=== PATIENT | male | born 1995 | race Caucasian/White ===

== ENCOUNTER 2017-07-16 02:00 | Inpatient (IN) | payer OTHER, SELFPAY ==
[2017-07-16 02:50] LABS: #Basophils 0.1 thou/uL (0.0-0.2); #Eosinphils 0.1 thou/uL (0.0-0.7); #Lymphocytes 1.9 thou/uL (1.20-3.40); #Monocytes 0.7 thou/uL (0.11-0.59); #Neutrophils 8.3 thou/uL (1.40-6.50); %Basophils 0.6 % (0.0-1.0); %Eosinophils 1.1 % (0.0-10.0); %Lymphocytes 17.2 % (21.0-51.0); %Monocytes 6.4 % (0.0-10.0); Hematocrit 45.5 % (42.0-52.0); Red Blood Cell (RBC) Count 5.32 mill/uL (4.70-6.10); White Blood Cell (WBC) Count 11.1 thou/uL (4.8-10.8)
[2017-07-16 03:00] LABS: Acetaminophen Less than 6.0 mcg/mL (10.0-30.0); CK (CPK) 106 U/L (30-200); Salicylate Less than 8.0 mg/dL (15.0-30.0)
[2017-07-16 03:02] LABS: ALT (SGPT) 25 U/L (8-55); AST (SGOT) 20 U/L (5-34); Alkaline Phosphatase 36 U/L (40-150); Anion Gap 12 mmol/L (10-20); BUN (Urea Nitrogen) 13 mg/dL (8.9-20.6); Bilirubin, Total 0.3 mg/dL (0.2-1.2); Calc. Creatinine Clearance 0 mL/min (70-130); Calcium 9.1 mg/dL (7.8-10.44); Carbon Dioxide 25 mmol/L (22-29); Chloride 109 mmol/L (98-107); Estimated GFR-MDRD Greater than 90; Globulin 2.3 g/dL (2.4-3.5); Protein, Total 6.4 g/dL (6.0-8.3)
[2017-07-16] MEDS ORDERED: Ondansetron HCl/PF 4 MG/2 ML Vial ONE (03:13)
[2017-07-16] MEDS ORDERED: Activated Charcoal/Sorbitol 25 GM/120 ML TUBE ONE (03:13)
[2017-07-16 03:19] LABS: Bilirubin Negative (Negative); Blood, Urine Negative (Negative); Glucose, Urine (Dipstick) Negative (Negative); Ketone, Urine Negative (Negative); Nitrite Negative (Negative); Protein, Urine (Dipstick) Negative (Neg-Trace); Urobilinogen 0.2 mg/dL (0.2-1.0)
[2017-07-16 03:35] LABS: Amphetamine Not Detected (NotDetected); Methadone Not Detected (NotDetected); Methamphetamine Not Detected (NotDetected)
[2017-07-16] MEDS ORDERED: Ondansetron HCl/PF 4 MG/2 ML Vial IVP PRN (04:49)
[2017-07-16] MEDS ORDERED: Sodium Chloride 0.9% 1,000 ML IV SCH (04:49)
[2017-07-16] MEDS ORDERED: Acetaminophen 325 MG TAB PO PRN (04:49)
[2017-07-16] MEDS ORDERED: Ondansetron ODT 4 MG TAB SL PRN (04:49)
--- NOTE | 2017-07-16 05:25 | PDOC.EVN ---
Event Note - Event Note Event Note: [id number] 1. Intentional drug overdose 2. Sucide attempt 3. DVT & GI prophylaxis 4. Nausea plan: see orders
[2017-07-16] MEDS: Sodium Chloride 0.9% 1,000 ML IV SCH ×3 (05:43→23:44)
[2017-07-16] MEDS: Famotidine 20 MG TAB PO SCH ×2 (09:10→19:44)
[2017-07-16] MEDS: Heparin 5,000 UNITS/ML VIAL SC SCH ×3 (09:10→19:46)
[2017-07-16] MEDS ORDERED: Levothyroxine Sodium 100 MCG TAB PO SCH ×3 (09:45→11:15)
--- NOTE | 2017-07-16 12:18 | PDOC.PN ---
- Subjective Encounter Start Date: 07/16/17 Encounter Start Time: 12:16 Subjective: feels better.still with SI. - Objective MAR Reviewed: Yes Vital Signs & Weight: Vital Signs (12 hours) Temp Pulse Resp BP Pulse Ox 07/16/17 07:55 99.4 F 92 15 115/78 95 07/16/17 07:17 99.4 F 92 15 95 07/16/17 04:45 98.7 F 105 H 18 97 Weight Admit Weight 296 lb 9.6 oz Weight 296 lb 9.6 oz I&O: 07/15/17 07/16/17 07/17/17 06:59 06:59 06:59 Intake Total 530 Balance 530 Result Diagrams: 07/16/17 02:19 07/16/17 02:19 Additional Labs: Laboratory Tests 05/09/17 05/24/17 07/16/17 16:49 04:28 02:19 TSH 3rd Generation 3.5532 7.5224 H 6.4903 H Phys Exam - Physical Examination Constitutional: NAD HEENT: PERRLA, moist MMs, sclera anicteric, oral pharynx no lesions Neck: no nodes, no JVD, supple, full ROM Respiratory: no wheezing, no rales, no rhonchi, clear to auscultation bilateral Cardiovascular: RRR, no significant murmur, no rub, gallop Gastrointestinal: soft, non-tender, no distention, positive bowel sounds Musculoskeletal: no edema, pulses present Neurological: non-focal, normal sensation, moves all 4 limbs Psychiatric: normal affect, A&O x 3 Skin: no rash Dx/Plan (1) Overdose Code(s): T50.901A - POISONING BY UNSP DRUG/MEDS/BIOL SUBST, ACCIDENTAL, INIT Status: Resolved Qualifiers: (2) Suicidal ideation Code(s): R45.851 - SUICIDAL IDEATIONS Status: Acute (3) Subclinical hypothyroidism Code(s): E03.9 - HYPOTHYROIDISM, UNSPECIFIED Status: Acute (4) Bipolar disorder Code(s): F31.9 - BIPOLAR DISORDER, UNSPECIFIED Status: Chronic (5) Depression Code(s): F32.9 - MAJOR DEPRESSIVE DISORDER, SINGLE EPISODE, UNSPECIFIED Status : Chronic (6) Schizophrenia Code(s): F20.9 - SCHIZOPHRENIA, UNSPECIFIED Status: Chronic (7) Suicide attempt Status: Resolved - Plan DVT proph w/SCDs start levothyroxine as it moight be contributing to Depression. -: consult [facility].pt hemodynamically stable * . Review of Systems - Review of Systems Constitutional: negative: Fever, Chills, Sweats, Weakness, Malaise, Other Respiratory: negative: Cough, Dry, Shortness of Breath, Hemoptysis, SOB with Excertion, Pleuritic Pain, Sputum, Wheezing Cardiovascular: negative: Chest Pain, Palpitations, Orthopnea, Paroxysmal Noc. Dyspnea, Edema, Light Headedness, Other Gastrointestinal: negative: Nausea, Vomiting, Abdominal Pain, Diarrhea, Constipation, Melena, Hematochezia, Other Genitourinary: negative: Dysuria, Frequency, Incontinence, Hematuria, Retention , Other Musculoskeletal: negative: Neck Pain, Shoulder Pain, Arm Pain, Back Pain, Hand Pain, Leg Pain, Foot Pain, Other Skin: negative: Rash, Lesions, Cameron, Bruising, Other Neurological: negative: Weakness, Numbness, Incoordination, Change in Speech, Confusion, Seizures, Other Other: suicidal ideation - Medications/Allergies Allergies/Adverse Reactions: Allergies Allergy/AdvReac Type Severity Reaction Status Date / Time topiramate [From Topamax] Allergy Intermediate Rash Verified 05/09/17 23:07 Medications: Current Medications Acetaminophen (Tylenol) 650 mg PO Q4H PRN PRN Reason: Headache/Fever or Pain Stop: 07/16/17 16:00 Famotidine (Pepcid) 20 mg PO BID [facility] Last Admin: 07/16/17 09:10 Dose: 20 mg Heparin Sodium (Porcine) (Heparin) 5,000 units SC TID [facility] Last Admin: 07/16/17 09:10 Dose: Not Given Sodium Chloride (Normal Saline 0.9%) 1,000 mls @ 100 mls/hr IV .Q10H [facility] Last Admin: 07/16/17 11:59 Dose: 1,000 mls Levothyroxine Sodium (Synthroid) 100 mcg PO 0600 [facility] Ondansetron HCl (Zofran) 4 mg IVP Q6H PRN PRN Reason: Nausea/Vomiting Stop: 07/16/17 16:00 Last Admin: 07/16/17 05:43 Dose: 4 mg Ondansetron HCl (Zofran Odt) 4 mg SL Q6H PRN PRN Reason: Nausea/Vomiting Stop: 07/16/17 16:00 Sodium Chloride (Flush - Normal Saline) 10 ml IVF PRN PRN PRN Reason: Saline Flush Stop: 07/16/17 16:00
--- NOTE | 2017-07-16 14:21 | HP ---
DATE OF ADMISSION: 07/16/2017 CHIEF COMPLAINT: Drug overdose. HISTORY OF PRESENT ILLNESS: Patient is a 21-year-old male with past medical history of borderline personality disorder, depression, now came to the ER complaining of suicide attempt. The patient said he took 24 tablets of Wellbutrin 300 mg yesterday and then he called and he came to the hospital. He tried to hurt himself in the past also. Denies any pain, vomiting. Complains of some nausea. Denies any cough, denies sputum production, denies any chest pain. The patient was in the Psych facility in the past for depression also. Denies any dizziness, denies any lightheadedness. Upon arrival, the patient was given activated charcoal and Zofran. The patient is admitted to IMU for close monitoring. Patient denies any other complaints at this time. PAST MEDICAL HISTORY: As per HPI. PAST SURGICAL HISTORY: None. SOCIAL HISTORY: Denies smoking. Occasional alcohol. Denies any drugs. FAMILY HISTORY: Denies any heart problems. REVIEW OF SYSTEMS: Constitutional: Denies any fever, denies any chills. Eyes : Denies vision problems. Ears: Denies hearing loss. Neck: Denies any neck pain. Cardiovascular System: Denies any chest pain, denies palpitations. Respiratory System: Denies any cough, denies sputum production. Gastrointestinal: Positive for nausea. Integumentary: Denies any rash. Genitourinary: Denies dysuria. Cranial nerve system: Denies syncope, denies lightheadedness. Psychiatric: Positive for depression. Other review of systems are reviewed and are negative. PHYSICAL EXAMINATION: CONSTITUTIONAL/VITAL SIGNS: At the time of H\T\P performed, afebrile, blood pressure is stable, respiratory rate 18, pulse ox 97% on room air. GENERAL: The patient appears comfortable. HEENT: Pupils equal, round, and reactive. Anterior nares patent. Nose normal. Ears normal. Teeth intact. Tongue is moist. NECK: Supple, no JVD. CARDIOVASCULAR: S1, S2 present. Regular rate and rhythm, no murmurs, no rubs, no gallops. RESPIRATORY SYSTEM: No wheezing, no rhonchi. Breath sounds bilaterally. GASTROINTESTINAL: Abdomen is soft, nontender, no guarding, no organomegaly, no masses felt. MUSCULOSKELETAL: No edema. CRANIAL NERVE SYSTEM: Awake, follows commands. Strength intact, sensory intact. PSYCHIATRIC: Mood appropriate at this time. INTEGUMENT: No rashes seen. GENITOURINARY: No suprapubic tenderness. MUSCULOSKELETAL: No edema. LABORATORY DATA AND IMAGING: At the time of H\T\P performed, sodium 142, potassium 3.7, chloride 109, CO2 25, BUN of 13, creatinine 1, glucose 106, AST 20, ALT 25, alkaline phosphatase 36, serum total protein 6.4, albumin 4.1. White count 11.1, platelet count 249. EKG normal sinus rhythm, corrected QT 401 milliseconds. ASSESSMENT AND PLAN: The patient is a 21-year-old male: 1. Suicide attempt with intentional overdose. We will continue to monitor the patient closely. Plan to place the patient on telemetry. We will go ahead and place sitter 24 hours and we will follow the patient closely. When patient is stable, will consult Psych to evaluate the patient. 2. History of borderline personality disorder and depression, monitor for now. We will continue home medications slowly. 3. Deep venous thrombosis and gastrointestinal prophylaxis. Sequential compression devices and proton pump inhibitor. 4. Nausea, p.r.n. antiemetics. The case was discussed in detail with the patient. AMA
[2017-07-17] MEDS: Levothyroxine Sodium 100 MCG TAB PO SCH (05:34)
[2017-07-17 05:44] LABS: #Basophils 0.1 thou/uL (0.0-0.2); #Eosinphils 0.3 thou/uL (0.0-0.7); #Lymphocytes 2.3 thou/uL (1.20-3.40); #Monocytes 0.8 thou/uL (0.11-0.59); #Neutrophils 5.1 thou/uL (1.40-6.50); %Basophils 0.9 % (0.0-1.0); %Eosinophils 3.1 % (0.0-10.0); %Lymphocytes 27.1 % (21.0-51.0); %Monocytes 8.8 % (0.0-10.0); Hematocrit 43.2 % (42.0-52.0); Mean Platelet Volume 7.3 fL (7.4-10.4); White Blood Cell (WBC) Count 8.5 thou/uL (4.8-10.8)
[2017-07-17 06:02] LABS: Anion Gap 10 mmol/L (10-20); BUN (Urea Nitrogen) 7 mg/dL (8.9-20.6); Calc. Creatinine Clearance 273 mL/min (70-130); Calcium 8.7 mg/dL (7.8-10.44); Carbon Dioxide 27 mmol/L (22-29); Chloride 108 mmol/L (98-107); Estimated GFR-MDRD Greater than 90
[2017-07-17] MEDS: Famotidine 20 MG TAB PO SCH ×2 (08:53→21:13)
[2017-07-17] MEDS ORDERED: Acetaminophen 325 MG TAB PO PRN (08:55)
[2017-07-17] MEDS: Heparin 5,000 UNITS/ML VIAL SC SCH (08:57)
[2017-07-17] MEDS ORDERED: Ondansetron HCl/PF 4 MG/2 ML Vial IVP PRN (14:15)
[2017-07-17] MEDS ORDERED: Ondansetron ODT 4 MG TAB PO PRN (14:15)
[2017-07-17] MEDS ORDERED: Milk Of Magnesia 30 ML UDCUP PO PRN (14:15)
[2017-07-17] MEDS ORDERED: Senokot 8.6 MG TAB PO PRN (14:15)
--- NOTE | 2017-07-17 14:58 | PDOC.PN ---
- Subjective Encounter Start Date: 07/17/17 Encounter Start Time: 14:56 Patient seen and examined. No new complaints. No overnight events - Objective Resuscitation Status: Resuscitation Status FULL:Full Resuscitation MAR Reviewed: Yes Vital Signs & Weight: Vital Signs (12 hours) Temp Pulse Resp BP BP Pulse Ox 07/17/17 12:04 98 F 79 16 139/62 100 07/17/17 10:30 98 F 79 16 100 07/17/17 08:00 98.1 F 70 16 117/75 100 07/17/17 05:35 98.6 F 68 16 104/60 Weight Admit Weight 296 lb 9.6 oz Weight 295 lb I&O: 07/16/17 07/17/17 07/18/17 06:59 06:59 06:59 Intake Total 4360 Output Total 5 Balance 4355 Result Diagrams: 07/17/17 05:32 07/17/17 05:31 EKG Reviewed by me: Yes (Tele SR) Phys Exam - Physical Examination Constitutional: NAD Respiratory: no wheezing, no rhonchi Cardiovascular: RRR, no rub Gastrointestinal: soft, non-tender, positive bowel sounds Musculoskeletal: no edema Neurological: non-focal, moves all 4 limbs Dx/Plan (1) Suicide by drug overdose Code(s): T50.902A - POISONING BY UNSP DRUG/MEDS/BIOL SUBST, SELF-HARM, INIT Status: Acute Comment: Wellbutrin overdose (2) Morbid obesity with BMI of 45.0-49.9, adult Code(s): E66.01 - MORBID (SEVERE) OBESITY DUE TO EXCESS CALORIES; Z68.42 - BODY MASS INDEX (BMI) 45.0-49.9, ADULT Status: Chronic (3) Bipolar disorder Code(s): F31.9 - BIPOLAR DISORDER, UNSPECIFIED Status: Chronic (4) Depression Code(s): F32.9 - MAJOR DEPRESSIVE DISORDER, SINGLE EPISODE, UNSPECIFIED Status : Chronic (5) Schizophrenia Code(s): F20.9 - SCHIZOPHRENIA, UNSPECIFIED Status: Chronic (6) Subclinical hypothyroidism Code(s): E03.9 - HYPOTHYROIDISM, UNSPECIFIED Status: Acute - Plan cont current plan of care, DVT proph w/lovenox, DVT proph w/SCDs * Cont suicide precautions * Inpt placement per [facility] * Cont tele monitoring - high risk of cardiac arrhythmias with Wellbutrin Review of Systems - Review of Systems Constitutional: negative: Fever, Chills, Sweats, Weakness, Malaise, Other Respiratory: negative: Cough, Dry, Shortness of Breath, Hemoptysis, SOB with Excertion, Pleuritic Pain, Sputum, Wheezing Cardiovascular: negative: Chest Pain, Palpitations, Orthopnea, Paroxysmal Noc. Dyspnea, Edema, Light Headedness, Other Gastrointestinal: negative: Nausea, Vomiting, Abdominal Pain, Diarrhea, Constipation, Melena, Hematochezia, Other Neurological: negative: Weakness, Numbness, Incoordination, Change in Speech, Confusion, Seizures, Other - Medications/Allergies Allergies/Adverse Reactions: Allergies Allergy/AdvReac Type Severity Reaction Status Date / Time topiramate [From Topamax] Allergy Intermediate Rash Verified 05/09/17 23:07 Medications: Current Medications Acetaminophen (Tylenol) 650 mg PO Q4H PRN PRN Reason: Headache/Fever or Mild Pain Docusate Sodium (Colace) 100 mg PO BID [facility] Enoxaparin Sodium (Lovenox) 40 mg SC 0900 [facility] Famotidine (Pepcid) 20 mg PO BID [facility] Last Admin: 07/17/17 08:53 Dose: 20 mg Sodium Chloride (Normal Saline 0.9%) 1,000 mls @ 100 mls/hr IV .Q10H [facility] Last Admin: 07/16/17 23:44 Dose: 1,000 mls Levothyroxine Sodium (Synthroid) 100 mcg PO 0600 [facility] Last Admin: 07/17/17 05:34 Dose: 100 mcg Magnesium Hydroxide (Milk Of Magnesium) 30 ml PO DAILYPRN PRN PRN Reason: Constipation Ondansetron HCl (Zofran Odt) 4 mg PO Q6H PRN PRN Reason: Nausea/Vomiting Ondansetron HCl (Zofran) 4 mg IVP Q6H PRN PRN Reason: Nausea/Vomiting Senna (Senokot) 2 tab PO HSPRN PRN PRN Reason: Constipation Sodium Chloride (Flush - Normal Saline) 10 ml IVF Q12HR [facility] Last Admin: 07/17/17 09:28 Dose: Not Given Sodium Chloride (Flush - Normal Saline) 10 ml IVF PRN PRN PRN Reason: Saline Flush
[2017-07-17] MEDS: Docusate 100 MG CAP PO SCH (21:13)
[2017-07-17] MEDS: Sodium Chloride 0.9% 1,000 ML IV SCH (21:21)
[2017-07-18] MEDS: Levothyroxine Sodium 100 MCG TAB PO SCH (05:52)
[2017-07-18] MEDS: Enoxaparin Sodium 40 MG/0.4 ML SYRINGE SC SCH (08:32)
[2017-07-18] MEDS: Famotidine 20 MG TAB PO SCH ×2 (08:32→21:22)
[2017-07-18] MEDS: Docusate 100 MG CAP PO SCH ×2 (08:32→21:22)
[2017-07-18] MEDS: Sodium Chloride 0.9% 1,000 ML IV SCH ×2 (08:36→16:04)
[2017-07-18] MEDS ORDERED: FLU VACC QS2017-18 36 mo. & older 0.5 ML SYRINGE IM ONE (09:00)
--- NOTE | 2017-07-18 19:00 | PDOC.PN ---
- Subjective Encounter Start Date: 07/18/17 Encounter Start Time: 09:30 Patient seen and examined. No new complaints. No overnight events - Objective Resuscitation Status: Resuscitation Status FULL:Full Resuscitation MAR Reviewed: Yes Vital Signs & Weight: Vital Signs (12 hours) Temp Pulse Resp BP Pulse Ox 07/18/17 16:05 97.2 F L 94 16 135/62 98 07/18/17 12:00 98.7 F 68 17 122/60 98 07/18/17 08:37 97.8 F 72 18 110/76 97 07/18/17 08:00 97.8 F 72 18 97 Weight Admit Weight 296 lb 9.6 oz Weight 295 lb I&O: 07/17/17 07/18/17 07/19/17 06:59 06:59 06:59 Intake Total 4360 1940 1920 Output Total 5 1740 1200 Balance 4355 200 720 Result Diagrams: 07/17/17 05:32 07/17/17 05:31 EKG Reviewed by me: Yes (Tele SR) Phys Exam - Physical Examination Constitutional: NAD Respiratory: no wheezing, no rhonchi Cardiovascular: RRR, no rub Gastrointestinal: soft, non-tender, positive bowel sounds Musculoskeletal: no edema Neurological: moves all 4 limbs Dx/Plan (1) Suicide by drug overdose Code(s): T50.902A - POISONING BY UNSP DRUG/MEDS/BIOL SUBST, SELF-HARM, INIT Status: Acute Comment: Wellbutrin overdose (2) Morbid obesity with BMI of 45.0-49.9, adult Code(s): E66.01 - MORBID (SEVERE) OBESITY DUE TO EXCESS CALORIES; Z68.42 - BODY MASS INDEX (BMI) 45.0-49.9, ADULT Status: Chronic (3) Bipolar disorder Code(s): F31.9 - BIPOLAR DISORDER, UNSPECIFIED Status: Chronic (4) Depression Code(s): F32.9 - MAJOR DEPRESSIVE DISORDER, SINGLE EPISODE, UNSPECIFIED Status : Chronic (5) Schizophrenia Code(s): F20.9 - SCHIZOPHRENIA, UNSPECIFIED Status: Chronic (6) Subclinical hypothyroidism Code(s): E03.9 - HYPOTHYROIDISM, UNSPECIFIED Status: Acute - Plan cont current plan of care, DVT proph w/lovenox, DVT proph w/SCDs * Inpt placement per [facility] * Probably transfer to medical in AM if no bed available at [place]. * Cont suicide precautions * Patient is medically cleared for discharge. Review of Systems - Review of Systems Constitutional: negative: Fever, Chills, Sweats, Weakness, Malaise, Other Cardiovascular: negative: Chest Pain, Palpitations, Orthopnea, Paroxysmal Noc. Dyspnea, Edema, Light Headedness, Other Gastrointestinal: negative: Nausea, Vomiting, Abdominal Pain, Diarrhea, Constipation, Melena, Hematochezia, Other Neurological: negative: Weakness, Numbness, Incoordination, Change in Speech, Confusion, Seizures, Other - Medications/Allergies Allergies/Adverse Reactions: Allergies Allergy/AdvReac Type Severity Reaction Status Date / Time topiramate [From Topamax] Allergy Intermediate Rash Verified 05/09/17 23:07 Medications: Current Medications Acetaminophen (Tylenol) 650 mg PO Q4H PRN PRN Reason: Headache/Fever or Mild Pain Docusate Sodium (Colace) 100 mg PO BID [facility] Last Admin: 07/18/17 08:32 Dose: 100 mg Enoxaparin Sodium (Lovenox) 40 mg SC 0900 [facility] Last Admin: 07/18/17 08:32 Dose: 40 mg Famotidine (Pepcid) 20 mg PO BID [facility] Last Admin: 07/18/17 08:32 Dose: 20 mg Sodium Chloride (Normal Saline 0.9%) 1,000 mls @ 100 mls/hr IV .Q10H [facility] Last Admin: 07/18/17 16:04 Dose: 1,000 mls Levothyroxine Sodium (Synthroid) 100 mcg PO 0600 [facility] Last Admin: 07/18/17 05:52 Dose: 100 mcg Magnesium Hydroxide (Milk Of Magnesium) 30 ml PO DAILYPRN PRN PRN Reason: Constipation Ondansetron HCl (Zofran Odt) 4 mg PO Q6H PRN PRN Reason: Nausea/Vomiting Ondansetron HCl (Zofran) 4 mg IVP Q6H PRN PRN Reason: Nausea/Vomiting Senna (Senokot) 2 tab PO HSPRN PRN PRN Reason: Constipation Sodium Chloride (Flush - Normal Saline) 10 ml IVF Q12HR [facility] Last Admin: 07/18/17 08:33 Dose: Not Given Sodium Chloride (Flush - Normal Saline) 10 ml IVF PRN PRN PRN Reason: Saline Flush
[2017-07-19] MEDS: Sodium Chloride 0.9% 1,000 ML IV SCH ×2 (05:15→15:37)
[2017-07-19] MEDS: Levothyroxine Sodium 100 MCG TAB PO SCH (05:18)
[2017-07-19] MEDS: Docusate 100 MG CAP PO SCH ×2 (09:27→20:29)
[2017-07-19] MEDS: Enoxaparin Sodium 40 MG/0.4 ML SYRINGE SC SCH (09:27)
[2017-07-19] MEDS: Famotidine 20 MG TAB PO SCH ×2 (09:27→20:29)
--- NOTE | 2017-07-19 17:04 | PDOC.PN ---
- Subjective Encounter Start Date: 07/19/17 Encounter Start Time: 16:00 Patient seen and examined. No new complaints. No overnight events - Objective Resuscitation Status: Resuscitation Status FULL:Full Resuscitation MAR Reviewed: Yes Vital Signs & Weight: Vital Signs (12 hours) Temp Pulse Resp BP BP Pulse Ox 07/19/17 15:10 98.3 F 86 20 129/60 97 07/19/17 12:09 98.4 F 69 18 96 07/19/17 12:00 98.4 F 69 18 127/61 96 07/19/17 07:44 98.3 F 69 16 127/65 99 Weight Admit Weight 296 lb 9.6 oz Weight 295 lb I&O: 07/18/17 07/19/17 07/20/17 06:59 06:59 06:59 Intake Total 1940 2160 Output Total 1740 1200 Balance 200 960 Result Diagrams: 07/17/17 05:32 07/17/17 05:31 Phys Exam - Physical Examination Constitutional: NAD Respiratory: no wheezing, no rhonchi Cardiovascular: RRR, no rub Gastrointestinal: soft, non-tender, positive bowel sounds Musculoskeletal: no edema Neurological: moves all 4 limbs Dx/Plan (1) Suicide by drug overdose Code(s): T50.902A - POISONING BY UNSP DRUG/MEDS/BIOL SUBST, SELF-HARM, INIT Status: Acute Comment: Wellbutrin overdose (2) Morbid obesity with BMI of 45.0-49.9, adult Code(s): E66.01 - MORBID (SEVERE) OBESITY DUE TO EXCESS CALORIES; Z68.42 - BODY MASS INDEX (BMI) 45.0-49.9, ADULT Status: Chronic (3) Bipolar disorder Code(s): F31.9 - BIPOLAR DISORDER, UNSPECIFIED Status: Chronic (4) Depression Code(s): F32.9 - MAJOR DEPRESSIVE DISORDER, SINGLE EPISODE, UNSPECIFIED Status : Chronic (5) Schizophrenia Code(s): F20.9 - SCHIZOPHRENIA, UNSPECIFIED Status: Chronic (6) Subclinical hypothyroidism Code(s): E03.9 - HYPOTHYROIDISM, UNSPECIFIED Status: Acute - Plan cont current plan of care, DVT proph w/lovenox, DVT proph w/SCDs * Inpt placement per [facility] * Cont suicide precautions * Patient is medically cleared for discharge. Review of Systems - Review of Systems Constitutional: negative: Fever, Chills, Sweats, Weakness, Malaise, Other Respiratory: negative: Cough, Dry, Shortness of Breath, Hemoptysis, SOB with Excertion, Pleuritic Pain, Sputum, Wheezing Cardiovascular: negative: Chest Pain, Palpitations, Orthopnea, Paroxysmal Noc. Dyspnea, Edema, Light Headedness, Other Gastrointestinal: negative: Nausea, Vomiting, Abdominal Pain, Diarrhea, Constipation, Melena, Hematochezia, Other - Medications/Allergies Allergies/Adverse Reactions: Allergies Allergy/AdvReac Type Severity Reaction Status Date / Time topiramate [From Topamax] Allergy Intermediate Rash Verified 05/09/17 23:07 Medications: Current Medications Acetaminophen (Tylenol) 650 mg PO Q4H PRN PRN Reason: Headache/Fever or Mild Pain Docusate Sodium (Colace) 100 mg PO BID [facility] Last Admin: 07/19/17 09:27 Dose: 100 mg Enoxaparin Sodium (Lovenox) 40 mg SC 0900 [facility] Last Admin: 07/19/17 09:27 Dose: 40 mg Famotidine (Pepcid) 20 mg PO BID [facility] Last Admin: 07/19/17 09:27 Dose: 20 mg Sodium Chloride (Normal Saline 0.9%) 1,000 mls @ 50 mls/hr IV .Q20H [facility] Magnesium Hydroxide (Milk Of Magnesium) 30 ml PO DAILYPRN PRN PRN Reason: Constipation Ondansetron HCl (Zofran Odt) 4 mg PO Q6H PRN PRN Reason: Nausea/Vomiting Ondansetron HCl (Zofran) 4 mg IVP Q6H PRN PRN Reason: Nausea/Vomiting Senna (Senokot) 2 tab PO HSPRN PRN PRN Reason: Constipation Sodium Chloride (Flush - Normal Saline) 10 ml IVF Q12HR [facility] Last Admin: 07/19/17 09:28 Dose: 10 ml Sodium Chloride (Flush - Normal Saline) 10 ml IVF PRN PRN PRN Reason: Saline Flush
[2017-07-19] MEDS ORDERED: FLU VACC QS2017-18 36 mo. & older 0.5 ML SYRINGE IM ONE (21:00)
[2017-07-20] MEDS: Sodium Chloride 0.9% 1,000 ML IV SCH ×2 (03:34→13:25)
[2017-07-20] MEDS: Docusate 100 MG CAP PO SCH ×2 (09:42→21:04)
[2017-07-20] MEDS: Famotidine 20 MG TAB PO SCH ×2 (09:42→21:01)
[2017-07-20] MEDS: Enoxaparin Sodium 40 MG/0.4 ML SYRINGE SC SCH (09:42)
--- NOTE | 2017-07-20 14:07 | PDOC.PN ---
- Subjective Encounter Start Date: 07/20/17 Encounter Start Time: 09:00 Patient seen and examined. No new complaints. No overnight events - Objective Resuscitation Status: Resuscitation Status FULL:Full Resuscitation MAR Reviewed: Yes Vital Signs & Weight: Vital Signs (12 hours) Temp Pulse Resp 07/20/17 08:00 98.5 F 70 16 Weight Admit Weight 296 lb 9.6 oz Weight 295 lb I&O: 07/19/17 07/20/17 07/21/17 06:59 06:59 06:59 Intake Total 2160 1580 250 Output Total 1200 Balance 960 1580 250 Result Diagrams: 07/17/17 05:32 07/17/17 05:31 Phys Exam - Physical Examination Constitutional: NAD Respiratory: no wheezing, no rhonchi Cardiovascular: RRR, no rub Gastrointestinal: soft, non-tender, positive bowel sounds Musculoskeletal: no edema Neurological: moves all 4 limbs Dx/Plan (1) Suicide by drug overdose Code(s): T50.902A - POISONING BY UNSP DRUG/MEDS/BIOL SUBST, SELF-HARM, INIT Status: Acute Comment: Wellbutrin overdose (2) Morbid obesity with BMI of 45.0-49.9, adult Code(s): E66.01 - MORBID (SEVERE) OBESITY DUE TO EXCESS CALORIES; Z68.42 - BODY MASS INDEX (BMI) 45.0-49.9, ADULT Status: Chronic (3) Bipolar disorder Code(s): F31.9 - BIPOLAR DISORDER, UNSPECIFIED Status: Chronic (4) Depression Code(s): F32.9 - MAJOR DEPRESSIVE DISORDER, SINGLE EPISODE, UNSPECIFIED Status : Chronic (5) Schizophrenia Code(s): F20.9 - SCHIZOPHRENIA, UNSPECIFIED Status: Chronic (6) Subclinical hypothyroidism Code(s): E03.9 - HYPOTHYROIDISM, UNSPECIFIED Status: Acute - Plan cont current plan of care, DVT proph w/lovenox, DVT proph w/SCDs * Inpt placement per [facility] * Patient is medically cleared for discharge. * Cont suicide precautions Review of Systems - Review of Systems Constitutional: negative: Fever, Chills, Sweats, Weakness, Malaise, Other Respiratory: negative: Cough, Dry, Shortness of Breath, Hemoptysis, SOB with Excertion, Pleuritic Pain, Sputum, Wheezing Cardiovascular: negative: Chest Pain, Palpitations, Orthopnea, Paroxysmal Noc. Dyspnea, Edema, Light Headedness, Other Neurological: negative: Weakness, Numbness, Incoordination, Change in Speech, Confusion, Seizures, Other - Medications/Allergies Allergies/Adverse Reactions: Allergies Allergy/AdvReac Type Severity Reaction Status Date / Time topiramate [From Topamax] Allergy Intermediate Rash Verified 05/09/17 23:07 Medications: Current Medications Acetaminophen (Tylenol) 650 mg PO Q4H PRN PRN Reason: Headache/Fever or Mild Pain Docusate Sodium (Colace) 100 mg PO BID [facility] Last Admin: 07/20/17 09:42 Dose: 100 mg Enoxaparin Sodium (Lovenox) 40 mg SC 0900 [facility] Last Admin: 07/20/17 09:42 Dose: 40 mg Famotidine (Pepcid) 20 mg PO BID [facility] Last Admin: 07/20/17 09:42 Dose: 20 mg Sodium Chloride (Normal Saline 0.9%) 1,000 mls @ 50 mls/hr IV .Q20H [facility] Last Admin: 07/20/17 03:34 Dose: 1,000 mls Magnesium Hydroxide (Milk Of Magnesium) 30 ml PO DAILYPRN PRN PRN Reason: Constipation Ondansetron HCl (Zofran Odt) 4 mg PO Q6H PRN PRN Reason: Nausea/Vomiting Ondansetron HCl (Zofran) 4 mg IVP Q6H PRN PRN Reason: Nausea/Vomiting Senna (Senokot) 2 tab PO HSPRN PRN PRN Reason: Constipation Sodium Chloride (Flush - Normal Saline) 10 ml IVF Q12HR [facility] Last Admin: 07/20/17 09:42 Dose: Not Given Sodium Chloride (Flush - Normal Saline) 10 ml IVF PRN PRN PRN Reason: Saline Flush
[2017-07-21] MEDS: Docusate 100 MG CAP PO SCH ×2 (09:00→21:30)
[2017-07-21] MEDS: Enoxaparin Sodium 40 MG/0.4 ML SYRINGE SC SCH (09:00)
[2017-07-21] MEDS: Sodium Chloride 0.9% 1,000 ML IV SCH (09:00)
[2017-07-21] MEDS: Famotidine 20 MG TAB PO SCH ×2 (09:00→21:35)
[2017-07-21 11:33] VITALS: BMI 46.2
--- NOTE | 2017-07-21 18:09 | PDOC.PN ---
- Subjective Encounter Start Date: 07/21/17 Encounter Start Time: 09:15 Patient seen and examined. No new complaints. No overnight events - Objective Resuscitation Status: Resuscitation Status FULL:Full Resuscitation MAR Reviewed: Yes Vital Signs & Weight: Vital Signs (12 hours) Temp Pulse Resp 07/21/17 08:00 98.5 F 70 16 Weight Admit Weight 296 lb 9.6 oz Weight 295 lb I&O: 07/20/17 07/21/17 07/22/17 06:59 06:59 06:59 Intake Total 1580 1985 Output Total 3 Balance 1580 1982 Result Diagrams: 07/17/17 05:32 07/17/17 05:31 Phys Exam - Physical Examination Constitutional: NAD Respiratory: no wheezing, no rhonchi Cardiovascular: RRR, no rub Gastrointestinal: soft, non-tender, positive bowel sounds Musculoskeletal: no edema Neurological: non-focal, moves all 4 limbs Psychiatric: A&O x 3 Dx/Plan (1) Suicide by drug overdose Code(s): T50.902A - POISONING BY UNSP DRUG/MEDS/BIOL SUBST, SELF-HARM, INIT Status: Acute Comment: Wellbutrin overdose (2) Morbid obesity with BMI of 45.0-49.9, adult Code(s): E66.01 - MORBID (SEVERE) OBESITY DUE TO EXCESS CALORIES; Z68.42 - BODY MASS INDEX (BMI) 45.0-49.9, ADULT Status: Chronic (3) Bipolar disorder Code(s): F31.9 - BIPOLAR DISORDER, UNSPECIFIED Status: Chronic (4) Depression Code(s): F32.9 - MAJOR DEPRESSIVE DISORDER, SINGLE EPISODE, UNSPECIFIED Status : Chronic (5) Schizophrenia Code(s): F20.9 - SCHIZOPHRENIA, UNSPECIFIED Status: Chronic (6) Subclinical hypothyroidism Code(s): E03.9 - HYPOTHYROIDISM, UNSPECIFIED Status: Acute - Plan cont current plan of care, DVT proph w/lovenox, DVT proph w/SCDs * On waitlist for JAEL * [facility] following * Cont current meds as below. Review of Systems - Review of Systems Constitutional: negative: Fever, Chills, Sweats, Weakness, Malaise, Other Respiratory: negative: Cough, Dry, Shortness of Breath, Hemoptysis, SOB with Excertion, Pleuritic Pain, Sputum, Wheezing Cardiovascular: negative: Chest Pain, Palpitations, Orthopnea, Paroxysmal Noc. Dyspnea, Edema, Light Headedness, Other Gastrointestinal: negative: Nausea, Vomiting, Abdominal Pain, Diarrhea, Constipation, Melena, Hematochezia, Other - Medications/Allergies Allergies/Adverse Reactions: Allergies Allergy/AdvReac Type Severity Reaction Status Date / Time topiramate [From Topamax] Allergy Intermediate Rash Verified 05/09/17 23:07 Medications: Current Medications Acetaminophen (Tylenol) 650 mg PO Q4H PRN PRN Reason: Headache/Fever or Mild Pain Docusate Sodium (Colace) 100 mg PO BID [facility] Last Admin: 07/21/17 09:00 Dose: 100 mg Enoxaparin Sodium (Lovenox) 40 mg SC 0900 [facility] Last Admin: 07/21/17 09:00 Dose: 40 mg Famotidine (Pepcid) 20 mg PO BID [facility] Last Admin: 07/21/17 09:00 Dose: 20 mg Sodium Chloride (Normal Saline 0.9%) 1,000 mls @ 50 mls/hr IV .Q20H [facility] Last Admin: 07/21/17 09:00 Dose: Not Given Magnesium Hydroxide (Milk Of Magnesium) 30 ml PO DAILYPRN PRN PRN Reason: Constipation Ondansetron HCl (Zofran Odt) 4 mg PO Q6H PRN PRN Reason: Nausea/Vomiting Ondansetron HCl (Zofran) 4 mg IVP Q6H PRN PRN Reason: Nausea/Vomiting Senna (Senokot) 2 tab PO HSPRN PRN PRN Reason: Constipation Sodium Chloride (Flush - Normal Saline) 10 ml IVF Q12HR [facility] Last Admin: 07/21/17 09:00 Dose: Not Given Sodium Chloride (Flush - Normal Saline) 10 ml IVF PRN PRN PRN Reason: Saline Flush
[2017-07-22] MEDS: Sodium Chloride 0.9% 1,000 ML IV SCH (07:29)
--- NOTE | 2017-07-22 08:47 | PDOC.PN ---
- Subjective Encounter Start Date: 07/22/17 Encounter Start Time: 08:46 Patient seen and examined. No new complaints. No overnight events - Objective Resuscitation Status: Resuscitation Status FULL:Full Resuscitation MAR Reviewed: Yes Vital Signs & Weight: Vital Signs (12 hours) Temp Pulse Resp BP Pulse Ox 07/22/17 07:20 97.6 F 67 18 105/49 L 96 Weight Admit Weight 296 lb 9.6 oz Weight 295 lb I&O: 07/21/17 07/22/17 07/23/17 06:59 06:59 06:59 Intake Total 1985 Output Total Balance 1982 Result Diagrams: 07/17/17 05:32 07/17/17 05:31 Phys Exam - Physical Examination Constitutional: NAD Respiratory: no wheezing, no rhonchi Cardiovascular: RRR, no rub Gastrointestinal: soft, non-tender, positive bowel sounds Musculoskeletal: no edema Neurological: non-focal, moves all 4 limbs Psychiatric: A&O x 3 Dx/Plan (1) Suicide by drug overdose Code(s): T50.902A - POISONING BY UNSP DRUG/MEDS/BIOL SUBST, SELF-HARM, INIT Status: Acute Comment: Wellbutrin overdose (2) Morbid obesity with BMI of 45.0-49.9, adult Code(s): E66.01 - MORBID (SEVERE) OBESITY DUE TO EXCESS CALORIES; Z68.42 - BODY MASS INDEX (BMI) 45.0-49.9, ADULT Status: Chronic (3) Bipolar disorder Code(s): F31.9 - BIPOLAR DISORDER, UNSPECIFIED Status: Chronic (4) Depression Code(s): F32.9 - MAJOR DEPRESSIVE DISORDER, SINGLE EPISODE, UNSPECIFIED Status : Chronic (5) Schizophrenia Code(s): F20.9 - SCHIZOPHRENIA, UNSPECIFIED Status: Chronic (6) Subclinical hypothyroidism Code(s): E03.9 - HYPOTHYROIDISM, UNSPECIFIED Status: Acute - Plan cont current plan of care, DVT proph w/lovenox, DVT proph w/SCDs * On waitlist for JAEL - 10th in line per CM * MR following * Cont current meds as below. Review of Systems - Review of Systems Constitutional: negative: Fever, Chills, Sweats, Weakness, Malaise, Other Respiratory: negative: Cough, Dry, Shortness of Breath, Hemoptysis, SOB with Excertion, Pleuritic Pain, Sputum, Wheezing Cardiovascular: negative: Chest Pain, Palpitations, Orthopnea, Paroxysmal Noc. Dyspnea, Edema, Light Headedness, Other - Medications/Allergies Allergies/Adverse Reactions: Allergies Allergy/AdvReac Type Severity Reaction Status Date / Time topiramate [From Topamax] Allergy Intermediate Rash Verified 05/09/17 23:07 Medications: Current Medications Acetaminophen (Tylenol) 650 mg PO Q4H PRN PRN Reason: Headache/Fever or Mild Pain Docusate Sodium (Colace) 100 mg PO BID [facility] Last Admin: 07/21/17 21:30 Dose: Not Given Enoxaparin Sodium (Lovenox) 40 mg SC 0900 [facility] Last Admin: 07/21/17 09:00 Dose: 40 mg Famotidine (Pepcid) 20 mg PO BID [facility] Last Admin: 07/21/17 21:35 Dose: Not Given Sodium Chloride (Normal Saline 0.9%) 1,000 mls @ 50 mls/hr IV .Q20H [facility] Last Admin: 07/22/17 07:29 Dose: Not Given Magnesium Hydroxide (Milk Of Magnesium) 30 ml PO DAILYPRN PRN PRN Reason: Constipation Ondansetron HCl (Zofran Odt) 4 mg PO Q6H PRN PRN Reason: Nausea/Vomiting Ondansetron HCl (Zofran) 4 mg IVP Q6H PRN PRN Reason: Nausea/Vomiting Senna (Senokot) 2 tab PO HSPRN PRN PRN Reason: Constipation Sodium Chloride (Flush - Normal Saline) 10 ml IVF Q12HR [facility] Last Admin: 07/22/17 07:29 Dose: Not Given Sodium Chloride (Flush - Normal Saline) 10 ml IVF PRN PRN PRN Reason: Saline Flush
[2017-07-22] MEDS: Docusate 100 MG CAP PO SCH ×2 (12:47→20:34)
[2017-07-22] MEDS: Famotidine 20 MG TAB PO SCH ×2 (12:47→20:34)
[2017-07-22] MEDS: Enoxaparin Sodium 40 MG/0.4 ML SYRINGE SC SCH (12:47)
[2017-07-23] MEDS: Sodium Chloride 0.9% 1,000 ML IV SCH ×2 (05:30→19:32)
--- NOTE | 2017-07-23 08:24 | PDOC.PN ---
- Subjective Encounter Start Date: 07/23/17 Encounter Start Time: 08:23 Patient seen and examined. No new complaints. No overnight events noted. Tried to leave last night per RN. - Objective Resuscitation Status: Resuscitation Status FULL:Full Resuscitation MAR Reviewed: Yes Vital Signs & Weight: Weight Admit Weight 296 lb 9.6 oz Weight 295 lb Result Diagrams: 07/17/17 05:32 07/17/17 05:31 Phys Exam - Physical Examination Constitutional: NAD Respiratory: no wheezing, no rhonchi Cardiovascular: RRR, no rub Gastrointestinal: soft, non-tender, positive bowel sounds Musculoskeletal: no edema Neurological: moves all 4 limbs Dx/Plan (1) Suicide by drug overdose Code(s): T50.902A - POISONING BY UNSP DRUG/MEDS/BIOL SUBST, SELF-HARM, INIT Status: Acute Comment: Wellbutrin overdose (2) Morbid obesity with BMI of 45.0-49.9, adult Code(s): E66.01 - MORBID (SEVERE) OBESITY DUE TO EXCESS CALORIES; Z68.42 - BODY MASS INDEX (BMI) 45.0-49.9, ADULT Status: Chronic (3) Bipolar disorder Code(s): F31.9 - BIPOLAR DISORDER, UNSPECIFIED Status: Chronic (4) Depression Code(s): F32.9 - MAJOR DEPRESSIVE DISORDER, SINGLE EPISODE, UNSPECIFIED Status : Chronic (5) Schizophrenia Code(s): F20.9 - SCHIZOPHRENIA, UNSPECIFIED Status: Chronic (6) Subclinical hypothyroidism Code(s): E03.9 - HYPOTHYROIDISM, UNSPECIFIED Status: Acute - Plan cont current plan of care, DVT proph w/SCDs * Stable for discharge * On waitlist for [facility]ALE * [facility] following * Cont current meds as below. Review of Systems - Review of Systems Constitutional: negative: Fever, Chills, Sweats, Weakness, Malaise, Other Cardiovascular: negative: Chest Pain, Palpitations, Orthopnea, Paroxysmal Noc. Dyspnea, Edema, Light Headedness, Other Gastrointestinal: negative: Nausea, Vomiting, Abdominal Pain, Diarrhea, Constipation, Melena, Hematochezia, Other Genitourinary: negative: Dysuria, Frequency, Incontinence, Hematuria, Retention , Other - Medications/Allergies Allergies/Adverse Reactions: Allergies Allergy/AdvReac Type Severity Reaction Status Date / Time topiramate [From Topamax] Allergy Intermediate Rash Verified 05/09/17 23:07 Medications: Current Medications Acetaminophen (Tylenol) 650 mg PO Q4H PRN PRN Reason: Headache/Fever or Mild Pain Docusate Sodium (Colace) 100 mg PO BID [facility] Last Admin: 07/22/17 20:34 Dose: Not Given Enoxaparin Sodium (Lovenox) 40 mg SC 0900 [facility] Last Admin: 07/22/17 12:47 Dose: 40 mg Famotidine (Pepcid) 20 mg PO BID [facility] Last Admin: 07/22/17 20:34 Dose: Not Given Sodium Chloride (Normal Saline 0.9%) 1,000 mls @ 50 mls/hr IV .Q20H [facility] Last Admin: 07/23/17 05:30 Dose: Not Given Magnesium Hydroxide (Milk Of Magnesium) 30 ml PO DAILYPRN PRN PRN Reason: Constipation Ondansetron HCl (Zofran Odt) 4 mg PO Q6H PRN PRN Reason: Nausea/Vomiting Ondansetron HCl (Zofran) 4 mg IVP Q6H PRN PRN Reason: Nausea/Vomiting Senna (Senokot) 2 tab PO HSPRN PRN PRN Reason: Constipation
[2017-07-23] MEDS: Famotidine 20 MG TAB PO SCH ×2 (10:06→19:33)
[2017-07-23] MEDS: Docusate 100 MG CAP PO SCH ×2 (10:07→19:33)
[2017-07-23] MEDS: Enoxaparin Sodium 40 MG/0.4 ML SYRINGE SC SCH (10:07)
--- NOTE | 2017-07-23 11:56 | EKG ---
Test Reason : Blood Pressure : / mmHG Vent. Rate : 082 BPM Atrial Rate : 082 BPM P-R Int : 124 ms QRS Dur : 086 ms QT Int : 344 ms P-R-T Axes : 023 -09 000 degrees QTc Int : 401 ms Normal sinus rhythm with sinus arrhythmia Voltage criteria for left ventricular hypertrophy Abnormal ECG Confirmed by JIN BELL, IZABELA ([id number]), editor continuity and script NIKA MANZANO ([id number]) on 07/23/2017 11:55:35 AM Referred By: Confirmed By:IZABELA ABDI MD
[2017-07-23 19:28] VITALS: BP 141/65; TEMP 98
[2017-07-23] MEDS ORDERED: Haloperidol Lactate 5 MG/ML VIAL IM PRN (20:11)
[2017-07-23] MEDS ORDERED: Haloperidol Lactate 5 MG/ML VIAL IM SCH (20:15)
[2017-07-23] MEDS ORDERED: Haloperidol Lactate 5 MG/ML VIAL SLOW IVP SCH ×2 (20:15)
[2017-07-23] MEDS ORDERED: Haloperidol Lactate 5 MG/ML VIAL ONE (21:04)
[2017-07-23] MEDS ORDERED: diphenhydrAMINE 25 MG CAP PO SCH (21:30)
[2017-07-23] MEDS ORDERED: Lorazepam 1 MG TAB PO SCH (21:30)
[2017-07-23] MEDS ORDERED: diphenhydrAMINE 25 MG CAP ONE (21:48)
[2017-07-23] MEDS ORDERED: Lorazepam 1 MG TAB ONE (21:48)
--- NOTE | 2017-07-24 10:10 | PDOC.PN ---
- Subjective Encounter Start Date: 07/24/17 Encounter Start Time: 07:00 Pt seen for followup for suicide attempt. Lying in bed, not answering questions. Unable to complete ROS. - Objective Resuscitation Status: Resuscitation Status FULL:Full Resuscitation MAR Reviewed: Yes Vital Signs & Weight: Weight Admit Weight 296 lb 9.6 oz Weight 295 lb I&O: 07/23/17 07/24/17 07/25/17 06:59 06:59 06:59 Intake Total 1200 Balance 1200 Result Diagrams: 07/17/17 05:32 07/17/17 05:31 Phys Exam - Physical Examination Obese HEENT: moist MMs Respiratory: clear to auscultation bilateral Cardiovascular: RRR Neurological: moves all 4 limbs Dx/Plan (1) Suicide attempt by drug ingestion Code(s): T50.902A - POISONING BY UNSP DRUG/MEDS/BIOL SUBST, SELF-HARM, INIT Status: Acute (2) Bipolar disorder Code(s): F31.9 - BIPOLAR DISORDER, UNSPECIFIED Status: Chronic (3) Depression Code(s): F32.9 - MAJOR DEPRESSIVE DISORDER, SINGLE EPISODE, UNSPECIFIED Status : Chronic (4) Morbid obesity with BMI of 45.0-49.9, adult Code(s): E66.01 - MORBID (SEVERE) OBESITY DUE TO EXCESS CALORIES; Z68.42 - BODY MASS INDEX (BMI) 45.0-49.9, ADULT Status: Chronic - Plan * . Pt currrently awaiting a bed at [facility]. Review of Systems - Medications/Allergies Allergies/Adverse Reactions: Allergies Allergy/AdvReac Type Severity Reaction Status Date / Time topiramate [From Topamax] Allergy Intermediate Rash Verified 05/09/17 23:07 Medications: Current Medications Acetaminophen (Tylenol) 650 mg PO Q4H PRN PRN Reason: Headache/Fever or Mild Pain Docusate Sodium (Colace) 100 mg PO BID [facility] Last Admin: 07/23/17 19:33 Dose: Not Given Enoxaparin Sodium (Lovenox) 40 mg SC 0900 [facility] Last Admin: 07/23/17 10:07 Dose: 40 mg Famotidine (Pepcid) 20 mg PO BID [facility] Last Admin: 07/23/17 19:33 Dose: Not Given Haloperidol Lactate (Haldol) 4 mg IM Q4H PRN PRN Reason: Agitation Sodium Chloride (Normal Saline 0.9%) 1,000 mls @ 50 mls/hr IV .Q20H [facility] Last Admin: 07/23/17 19:32 Dose: Not Given Magnesium Hydroxide (Milk Of Magnesium) 30 ml PO DAILYPRN PRN PRN Reason: Constipation Ondansetron HCl (Zofran Odt) 4 mg PO Q6H PRN PRN Reason: Nausea/Vomiting Ondansetron HCl (Zofran) 4 mg IVP Q6H PRN PRN Reason: Nausea/Vomiting Senna (Senokot) 2 tab PO HSPRN PRN PRN Reason: Constipation
[2017-07-24] MEDS ORDERED: Bupivacaine 0.25% 10 ML VIAL ONE (11:11)
[2017-07-24] MEDS ORDERED: buPROPion HCl 100 MG TAB PO SCH (14:30)
[2017-07-24] MEDS ORDERED: Gabapentin 100 MG CAP PO SCH (15:00)
[2017-07-25] MEDS ORDERED: buPROPion HCl 100 MG TAB PO SCH (09:00)
[2017-07-25] MEDS ORDERED: Famotidine 20 MG TAB ONE (09:07)
--- NOTE | 2017-07-25 10:41 | PDOC.PN ---
- Subjective Encounter Start Date: 07/25/17 Encounter Start Time: 07:00 Pt seen for followup re; suicide attempt. Awake, not answering questions. Unable to complete ROS. - Objective Resuscitation Status: Resuscitation Status FULL:Full Resuscitation MAR Reviewed: Yes Vital Signs & Weight: Weight Admit Weight 296 lb 9.6 oz Weight 295 lb I&O: 07/24/17 07/25/17 07/26/17 06:59 06:59 06:59 Intake Total 1200 Balance 1200 Result Diagrams: 07/17/17 05:32 07/17/17 05:31 Phys Exam - Physical Examination Constitutional: NAD HEENT: moist MMs Respiratory: clear to auscultation bilateral Cardiovascular: RRR Neurological: moves all 4 limbs Dx/Plan (1) Suicide attempt by drug ingestion Code(s): T50.902A - POISONING BY UNSP DRUG/MEDS/BIOL SUBST, SELF-HARM, INIT Status: Acute (2) Bipolar disorder Code(s): F31.9 - BIPOLAR DISORDER, UNSPECIFIED Status: Chronic (3) Depression Code(s): F32.9 - MAJOR DEPRESSIVE DISORDER, SINGLE EPISODE, UNSPECIFIED Status : Chronic (4) Morbid obesity with BMI of 45.0-49.9, adult Code(s): E66.01 - MORBID (SEVERE) OBESITY DUE TO EXCESS CALORIES; Z68.42 - BODY MASS INDEX (BMI) 45.0-49.9, ADULT Status: Chronic - Plan * . Home medications resumed. Await transfer to [facility]. Review of Systems - Medications/Allergies Allergies/Adverse Reactions: Allergies Allergy/AdvReac Type Severity Reaction Status Date / Time topiramate [From Topamax] Allergy Intermediate Rash Verified 05/09/17 23:07 Medications: Current Medications Acetaminophen (Tylenol) 650 mg PO Q4H PRN PRN Reason: Headache/Fever or Mild Pain Bupropion HCl (Wellbutrin) 200 mg PO DAILY [facility] Docusate Sodium (Colace) 100 mg PO BID [facility] Last Admin: 07/23/17 19:33 Dose: Not Given Enoxaparin Sodium (Lovenox) 40 mg SC 0900 [facility] Last Admin: 07/23/17 10:07 Dose: 40 mg Famotidine (Pepcid) 20 mg PO BID [facility] Last Admin: 07/23/17 19:33 Dose: Not Given Gabapentin (Neurontin) 200 mg PO TID [facility] Haloperidol Lactate (Haldol) 4 mg IM Q4H PRN PRN Reason: Agitation Sodium Chloride (Normal Saline 0.9%) 1,000 mls @ 50 mls/hr IV .Q20H [facility] Last Admin: 07/23/17 19:32 Dose: Not Given Magnesium Hydroxide (Milk Of Magnesium) 30 ml PO DAILYPRN PRN PRN Reason: Constipation Ondansetron HCl (Zofran Odt) 4 mg PO Q6H PRN PRN Reason: Nausea/Vomiting Ondansetron HCl (Zofran) 4 mg IVP Q6H PRN PRN Reason: Nausea/Vomiting Quetiapine Fumarate (Seroquel) 200 mg PO HS [facility] Senna (Senokot) 2 tab PO HSPRN PRN PRN Reason: Constipation
--- NOTE | 2017-07-25 12:02 | DIS ---
PRIMARY CARE PHYSICIAN: None. DATE OF ADMISSION: 07/16/2017 DATE OF DISCHARGE: 07/25/2017 DISCHARGE DIAGNOES: 1. Suicide attempt with medication overdose. 2. Bipolar disorder. 3. Depression. CONDITION OF PATIENT AT THE TIME OF DISCHARGE: Stable. I assessed Mr. Aguilar on the day of disch arge. Please refer to my daily progress note for further information regarding the face to face-to- face encounter. DISCHARGE MEDICATIONS: As prescribed by his psychiatrist, to be provided through [facility]. HOSPITAL COURSE: Mr. Aguilar is a pleasant 21-year-old gentleman who was admitted to [facility] on 07/16/2017 for drug overdose with Wellbutrin as a method of attempted suicid e. He was admitted to the hospital and observed. He was seen by [facility]. On 07/25/2017, I was inform ed by [facility] that they will take the patient to his home. They will manage his medications. Their ps ychiatrist will prescribe his medications. Therefore, I am discharging the patient to home. DISCHARGE DESTINATION: Home. TOTAL AMOUNT OF TIME SPENT COORDINATING THIS DISCHARGE: 33 minutes. ADDENDUM: Mr. Aguilar had abnormal TSH level of 6.4903 during this hospitalization. He will need his thyroid profile checked through his primary care provider's office in 4 weeks.
[2017-08-17] MEDS ORDERED: Ondansetron HCl/PF 4 MG/2 ML Vial IVP PRN (19:55)
[2017-08-17] MEDS ORDERED: Acetaminophen 325 MG TAB PO PRN (19:55)
[2017-08-17] MEDS ORDERED: Sodium Chloride 0.9% 1,000 ML IV SCH (20:00)
== END 2017-07-25 12:27 | disposition home or self-care (01) | DRG 918 ==
LOC: ERS 02:00 → IMCU/EMU 03:33 → ERHOLD 04:40 → 2NO 07-17 10:26 → ONC 07-19 11:50 → ERHOLD 07-24 00:37
PROVIDERS: ADMIT Internal Medicine; ATTEND Internal Medicine
DX: T43.292A Poisoning by other antidepressants, intentional self-harm, initial encounter (principal); Z68.42 Body mass index [BMI] 45.0-49.9, adult; E66.01 Morbid (severe) obesity due to excess calories; R11.0 Nausea; E02 Subclinical iodine-deficiency hypothyroidism; F31.9 Bipolar disorder, unspecified; F60.3 Borderline personality disorder; Z23 Encounter for immunization; F20.9 Schizophrenia, unspecified
CPT/HCPCS: 36415; 80048; 80053; 80306; 80307; 81003; 82550; 83735; 84443; 85025; 90471; 90682; 93005; 94760; 96374; A4216; G0008; J1630; J1650; J2405; Q2036; S0020

== ENCOUNTER 2017-08-17 14:22 | Inpatient (IN) | payer SELFPAY ==
[2017-08-17 15:30] LABS: #Eosinphils 0.1 thou/uL (0.0-0.7); #Lymphocytes 1.4 thou/uL (1.20-3.40); #Monocytes 0.8 thou/uL (0.11-0.59); #Neutrophils 8.2 thou/uL (1.40-6.50); %Basophils 0.3 % (0.0-1.0); %Eosinophils 0.8 % (0.0-10.0); %Monocytes 7.7 % (0.0-10.0); Hematocrit 45.5 % (42.0-52.0); Mean Platelet Volume 7.2 fL (7.4-10.4); White Blood Cell (WBC) Count 10.5 thou/uL (4.8-10.8)
[2017-08-17 15:33] LABS: ALT (SGPT) 28 U/L (8-55); AST (SGOT) 26 U/L (5-34); Alkaline Phosphatase 36 U/L (40-150); Anion Gap 19 mmol/L (10-20); BUN (Urea Nitrogen) 12 mg/dL (8.9-20.6); Bilirubin, Total 0.5 mg/dL (0.2-1.2); Calc. Creatinine Clearance 0 mL/min (70-130); Calcium 9.2 mg/dL (7.8-10.44); Carbon Dioxide 21 mmol/L (22-29); Chloride 106 mmol/L (98-107); Estimated GFR-MDRD 80; Globulin 2.5 g/dL (2.4-3.5); Protein, Total 6.6 g/dL (6.0-8.3)
[2017-08-17 15:39] LABS: Acetaminophen Less than 6.0 mcg/mL (10.0-30.0); Salicylate Less than 8.0 mg/dL (15.0-30.0)
[2017-08-17 15:44] LABS: Troponin I 0.066 ng/mL (< 0.028)
[2017-08-17 16:40] LABS: Bilirubin Negative (Negative); Blood, Urine Trace (Negative); Glucose, Urine (Dipstick) Negative (Negative); Ketone, Urine 15 mg/dL (Negative); Nitrite Negative (Negative); Protein, Urine (Dipstick) 100 mg/dL (Neg-Trace); Urobilinogen 0.2 mg/dL (0.2-1.0)
[2017-08-17 16:43] LABS: Bacteria/HPF None Seen HPF (None Seen); RBC/HPF None Seen HPF (0-3)
[2017-08-17 16:52] LABS: Amphetamine Not Detected (NotDetected); Methadone Not Detected (NotDetected); Methamphetamine Not Detected (NotDetected)
[2017-08-17 17:00] LABS: Hyaline Casts/LPF 7-10 HYALINE CAST LPF (0-3 Hyaline)
[2017-08-17 17:03] LABS: Transitional Epithelial 0-3 HPF (0-3)
[2017-08-17 17:04] LABS: Squamous Epithelial 0-3 HPF (0-3)
--- NOTE | 2017-08-17 22:38 | CT ---
NONCONTRAST CT OF THE CERVICAL SPINE: 08/17/17 INDICATION: Found down in ditch, concern for cervical spinal injury. FINDINGS: No acute fracture or subluxation is evident. 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 Craniocervical junction is normal appearing. Prevertebral soft tissues appear with in normal limits. IMPRESSION: 1. No acute osseous abnormality. 2. Right sided aortic arch. POS: [facility]
--- NOTE | 2017-08-17 22:54 | CT ---
CT OF THE BRAIN WITHOUT IV CONTRAST 08/17/17 INDICATION: Altered mental status; 22-year-old male found unresponsive in a ditch in [place], [place]. Was administe red Narcan by the EMS service with no change. The patient slowly became more responsive while in rou te to the hospital and states that he is currently feeling fine. COMPARISON: 05/06/12 was available. FINDINGS: No definite acute infarct, hemorrhage or hydrocephalus is present. The septum pellucidum and third v entricle are midline. Skull and extracranial soft tissues appear within normal limits. IMPRESSION: No acute intracranial abnormality. POS: [facility]
[2017-08-17] MEDS ORDERED: Sodium Chloride 0.9% 1,000 ML IV SCH (23:39)
--- NOTE | 2017-08-18 00:45 | HP ---
DATE OF ADMISSION: 08/17/2017 ADMITTING PHYSICIAN: Dr. Wilman Galarza. PRIMARY CARE PHYSICIAN: Unknown. CHIEF COMPLAINT: Found down unresponsive. HISTORY OF PRESENT ILLNESS: The patient is a 22-year-old gentleman with an extensive psychiatric hi story. Patient was found down and unresponsive in a ditch in [place] by EMS. Narcan was administered in the field which had little effect on the patient. The patient was able to answer some of the qu estions in the field, but is extremely somnolent during my interview and a poor historian. REVIEW OF SYSTEMS: The following complete review of systems was negative, unless otherwise mentione d in the HPI or below: Constitutional: Weight loss or gain, sense of well-being, ability to conduct usual activities, exer cise tolerance. Skin/Breast: Rash, itching, changes in hair growth or loss, nail changes, breast l umps, tenderness, swelling, nipple discharge. Eyes: Vision, double vision, tearing, blind spots, p ain. ENT/Mouth: Headaches (location, time of onset, duration, precipitating factors), vertigo, lig htheadedness, injury. Vision, double vision, tearing, blind spots, pain, nose bleeding, colds, obstr uction, discharge, dental difficulties, gingival bleeding, dentures, neck stiffness, pain, tendernes s, masses in thyroid or other areas. Cardiovascular: Precordial pain, substernal distress, palpita tions, syncope, dyspnea on exertion, orthopnea, nocturnal paroxysmal dyspnea, edema, cyanosis, hyper tension, heart murmurs, varicosities, phlebitis, claudication. Respiratory: Pain, shortness of aguilar ath, wheezing, stridor, cough, hemoptysis, fever or night sweats. Gastrointestinal: Poor appetite, dysphagia, indigestion, abdominal pain, heartburn, eructation, nausea, vomiting, hematemesis, jaund ice, constipation, or diarrhea, abnormal stools (doyle-colored, tarry, bloody, greasy, foul smelling) , flatulence, hemorrhoids, recent changes in bowel habits. Genitourinary: Urgency, frequency, dysu loan, nocturia, hematuria, polyuria, oliguria, unusual (or change in) color of urine, stones, hesitan cy, change in size of stream, dribbling, acute retention or incontinence, libido, potency. Musculos keletal: Pain, swelling, redness or heat of muscles or joints, limitation, of motion, muscular weak ness, atrophy, cramps. Neurologic/Psychiatric: Convulsions, paralyses, tremor, incoordination, par asthesias, difficulties with memory of speech, sensory or motor disturbances, or muscular coordinati on (ataxia, tremor), emotional problems, anxiety, depression, previous psychiatric care, unusual per ceptions, hallucinations. Allergy/Immunologic: Skin rash, anemia, bleeding tendency, polydipsia, polyuria, intolerance to heat or cold. PAST MEDICAL HISTORY: Significant for bipolar disorder, depression, schizophrenia, multiple suicida l ideations. He is currently under the care of outpatient psychiatrist. PAST SURGICAL HISTORY: None according to old records. SOCIAL HISTORY: Drinker, uses drugs. Lives at home with family. HOME MEDICATIONS: Unable to obtain due to altered mental status. DRUG ALLERGIES: Per our records, he is allergic to TOPAMAX. PHYSICAL EXAMINATION: VITAL SIGNS: Temperature 98.8, blood pressure 105/59, pulse 137, respirations 16, 97% on room air. GENERAL: The patient is very somnolent and unresponsive to my questions. HEAD: Normocephalic, atraumatic. EYES: Pupils are equally round and reactive to lights. Pupils are constricted. ENT: External ear exam normal. Uvula normal. Tonsils normal. Pharynx normal. NECK: Trachea midline. No adenopathy. CHEST: Breath sounds clear bilaterally. CARDIOVASCULAR: Tachycardia. ABDOMEN: Obese, positive bowel sounds. EXTREMITIES: No clubbing, cyanosis or edema. NEUROLOGIC: Per the examining physician in the ED, he did have slurred speech, but during my exam, he is hypersomnolent and not answering questions. LABORATORY DATA AND IMAGES: Urine drug screen positive for tricyclic medications. Urinalysis: Yel low clear, large amount of protein, ketones, trace blood, no bacteria, negative for leukocytes and n itrites. TSH of 4.99, troponin I of 0.06, CK-MB 1.7. Acetaminophen level less than 6. Salicylate level less than 8. CMP: Sodium 142, potassium 4.2, chloride 106, CO2 of 21, BUN 12, creatinine 1.1 5, glucose 112, calcium 9.2, alkaline phosphatase 36, AST 26, ALT 28. CBC shows a white count of 10 .5, hemoglobin 15.1, hematocrit 45.5, platelets 207. ASSESSMENT AND PLAN: 1. Altered mental status. 2. Suspected overdose. 3. Schizophrenia. PLAN: The patient will be admitted to intermediate care unit where he can be closely monitored. We will attach obviously telemetry device as the patient has tachycardia. We will reassess the patien t and as he becomes more coherent, we will reinitiate his psychiatric medications and will request a n [facility] evaluation.
[2017-08-18 05:15] LABS: #Eosinphils 0.2 thou/uL (0.0-0.7); #Lymphocytes 1.9 thou/uL (1.20-3.40); #Monocytes 0.9 thou/uL (0.11-0.59); #Neutrophils 7.4 thou/uL (1.40-6.50); %Basophils 0.2 % (0.0-1.0); %Eosinophils 1.5 % (0.0-10.0); %Lymphocytes 18.1 % (21.0-51.0); %Monocytes 8.8 % (0.0-10.0); Hematocrit 42.6 % (42.0-52.0); Red Blood Cell (RBC) Count 4.92 mill/uL (4.70-6.10); White Blood Cell (WBC) Count 10.4 thou/uL (4.8-10.8)
[2017-08-18 05:28] LABS: Anion Gap 12 mmol/L (10-20); BUN (Urea Nitrogen) 10 mg/dL (8.9-20.6); Calc. Creatinine Clearance 228 mL/min (70-130); Calcium 8.8 mg/dL (7.8-10.44); Carbon Dioxide 25 mmol/L (22-29); Chloride 112 mmol/L (98-107); Estimated GFR-MDRD Greater than 90
[2017-08-18] MEDS ORDERED: hydrALAZINE 20 MG/ML VIAL SLOW IVP PRN (09:58)
[2017-08-18] MEDS ORDERED: Mag-Al 1200 mg/1200 mg/30 ML UDCUP PO PRN (09:58)
--- NOTE | 2017-08-18 10:01 | PDOC.PN ---
- Subjective Encounter Start Date: 08/18/17 Encounter Start Time: 09:59 Mr. Aguilar is awake and alert. He does not have any specific complaint. He says he did try to overdose in the efforts to try and hurt himself. He says he took, Seroquel, Fluoxetine, and Zoloft, as well as Ibuprofen. when asked if he has been depressed, he just doesn't answer. - Objective Resuscitation Status: Resuscitation Status FULL:Full Resuscitation MAR Reviewed: Yes Vital Signs & Weight: Vital Signs (12 hours) Temp Pulse Resp BP Pulse Ox 08/18/17 08:00 98.5 F 127 H 16 98 08/18/17 06:55 98.5 F 127 H 16 131/74 98 08/18/17 04:00 98.9 F 104 H 18 101/42 L 97 08/18/17 00:20 98.5 F 127 H 16 98 08/17/17 23:40 97.5 F L 154 H 16 144/62 H 99 Weight Weight 307 lb 3.2 oz I&O: 08/17/17 08/18/17 08/19/17 06:59 06:59 06:59 Intake Total 950 Output Total 2300 Balance -1350 Result Diagrams: 08/18/17 05:01 08/18/17 05:01 Phys Exam - Physical Examination HEENT: PERRLA Respiratory: no wheezing, no rales, no rhonchi, clear to auscultation bilateral regular- tachycardic Gastrointestinal: soft, non-tender, positive bowel sounds Musculoskeletal: no edema Dx/Plan (1) Suicide attempt by drug ingestion Code(s): T50.902A - POISONING BY UNSP DRUG/MEDS/BIOL SUBST, SELF-HARM, INIT Status: Acute (2) Bipolar disorder Code(s): F31.9 - BIPOLAR DISORDER, UNSPECIFIED Status: Chronic (3) Morbid obesity with BMI of 45.0-49.9, adult Code(s): E66.01 - MORBID (SEVERE) OBESITY DUE TO EXCESS CALORIES; Z68.42 - BODY MASS INDEX (BMI) 45.0-49.9, ADULT Status: Chronic (4) Schizophrenia Code(s): F20.9 - SCHIZOPHRENIA, UNSPECIFIED Status: Chronic - Plan * Altered Mental Status- resolved- likely from drug overdose * Tachycardia- suspect mild volume depletion and affect of the drugs- will continue Hydration * Elevated TSH- will check a free T4. * Stable to move out of the IMCU * Once his heart rate has improved, he will be stable for [facility] evaluation
[2017-08-18] MEDS: Sodium Chloride 0.9% 1,000 ML IV SCH ×3 (11:57→22:28)
--- NOTE | 2017-08-18 14:04 | CON ---
DATE OF CONSULTATION: 08/18/2017 HISTORY OF PRESENT ILLNESS: Mr. Aguilar is a 22-year-old male. He was admitted here in April with suicide ideation and an overdose, in May with an overdose and June with an overdose and then has been admitted again with multiple [id number] prescription drug overdose. He told the nurses, he is still suicidal. PAST MEDICAL HISTORY: He has no chronic medical problems. SOCIAL HISTORY: He is a nonsmoker. Denies using drugs. FAMILY HISTORY: Negative for lung disease at an early age. REVIEW OF SYSTEMS: Otherwise negative. PHYSICAL EXAMINATION: GENERAL: He is cooperative. He is sleepy, but arousable. He has a flat affect. VITAL SIGNS: Afebrile. Heart rate 124, respiratory rate 18, oximetry is 94, blood pressure 120/45 and 101/42. HEAD AND NECK: Unremarkable. LUNGS: Clear. HEART: Regular rhythm. ABDOMEN: Soft and nontender. EXTREMITIES: Without asymmetry. LABORATORY DATA: White count 10.4, hemoglobin 13.8, platelets 210,000. Electrolytes: Sodium 145, chloride 112, bicarbonate 25, potassium is 3.8, BUN 10, creatinine 1.0. Drug screen showed tricyclics. IMPRESSION: Depression with suicide attempts. Given the fact that he is in the hospital every month last 4 months, one would wonder if he would be better served as an inpatient for a long period of time. His resting tachycardia is most likely related to multiple drugs that he took, admitted to taking se veral different leftover antidepressants as well as ones he has described as well as approximately 2 0 Advil. He should continue to be hydrated. He can be transferred out of the [facility]. He appears to be medically stable, but not ready to go to any inpatient facility at this point i n time.
[2017-08-18 14:08] VITALS: BMI 47.2
[2017-08-18] MEDS: Famotidine 20 MG TAB PO SCH (20:13)
[2017-08-19 05:19] LABS: Anion Gap 10 mmol/L (10-20); BUN (Urea Nitrogen) 10 mg/dL (8.9-20.6); Calc. Creatinine Clearance 252 mL/min (70-130); Calcium 8.5 mg/dL (7.8-10.44); Carbon Dioxide 25 mmol/L (22-29); Chloride 111 mmol/L (98-107); Estimated GFR-MDRD Greater than 90
[2017-08-19] MEDS: Sodium Chloride 0.9% 1,000 ML IV SCH ×3 (05:36→21:07)
[2017-08-19] MEDS: Famotidine 20 MG TAB PO SCH ×2 (09:28→21:06)
[2017-08-19] MEDS: Enoxaparin Sodium 40 MG/0.4 ML SYRINGE SC SCH (09:28)
--- NOTE | 2017-08-19 09:40 | PDOC.PN ---
- Subjective Encounter Start Date: 08/19/17 Encounter Start Time: 09:38 Ms. Aguilar is feeling better today. He now says he does not remember how he got to the hospital. - Objective Resuscitation Status: Resuscitation Status FULL:Full Resuscitation MAR Reviewed: Yes Vital Signs & Weight: Vital Signs (12 hours) Temp Pulse Resp BP BP Pulse Ox 08/19/17 08:00 98.2 F 79 18 126/58 L 97 08/19/17 07:44 98.3 F 75 20 97 08/19/17 04:00 98.3 F 75 20 113/69 95 08/18/17 23:57 98.6 F 74 20 116/59 L 96 Weight Weight 301 lb 6.4 oz I&O: 08/18/17 08/19/17 08/20/17 06:59 06:59 06:59 Intake Total 950 3610 120 Output Total 2300 1800 Balance -1350 1810 120 Result Diagrams: 08/18/17 05:01 08/19/17 04:40 Phys Exam - Physical Examination HEENT: PERRLA Respiratory: no wheezing, no rales, no rhonchi, clear to auscultation bilateral Cardiovascular: RRR, no significant murmur Gastrointestinal: soft, non-tender, positive bowel sounds Musculoskeletal: no edema Dx/Plan (1) Suicide attempt by drug ingestion Code(s): T50.902A - POISONING BY UNSP DRUG/MEDS/BIOL SUBST, SELF-HARM, INIT Status: Acute (2) Bipolar disorder Code(s): F31.9 - BIPOLAR DISORDER, UNSPECIFIED Status: Chronic (3) Morbid obesity with BMI of 45.0-49.9, adult Code(s): E66.01 - MORBID (SEVERE) OBESITY DUE TO EXCESS CALORIES; Z68.42 - BODY MASS INDEX (BMI) 45.0-49.9, ADULT Status: Chronic (4) Schizophrenia Code(s): F20.9 - SCHIZOPHRENIA, UNSPECIFIED Status: Chronic - Plan * Suicide Attempt from overdose on Seroquel, and Fluoxetine- his heart rate has improved * He is clinically at his medical baseline * He is stable for [facility] disposition.
[2017-08-20] MEDS: Enoxaparin Sodium 40 MG/0.4 ML SYRINGE SC SCH (08:42)
[2017-08-20] MEDS: Famotidine 20 MG TAB PO SCH ×2 (08:42→20:38)
--- NOTE | 2017-08-20 12:31 | PDOC.PN ---
- Subjective Encounter Start Date: 08/20/17 Encounter Start Time: 11:15 Subjective: awake, not in distress - Objective Resuscitation Status: Resuscitation Status FULL:Full Resuscitation MAR Reviewed: Yes Vital Signs & Weight: Vital Signs (12 hours) Temp Pulse Resp BP Pulse Ox 08/20/17 08:00 98.5 F 66 16 128/73 97 08/20/17 03:54 97.7 F 64 18 123/76 96 08/20/17 00:57 98.7 F 65 20 103/52 L 94 L Weight Weight 301 lb 6.4 oz I&O: 08/19/17 08/20/17 08/21/17 06:59 06:59 05:59 Intake Total 3610 3500 Output Total 1800 1400 Balance 1810 2100 Result Diagrams: 08/18/17 05:01 08/19/17 04:40 Phys Exam - Physical Examination HEENT: PERRLA, moist MMs Neck: no JVD, supple Respiratory: no wheezing, no rales Cardiovascular: RRR, no significant murmur Gastrointestinal: soft, non-tender, positive bowel sounds Musculoskeletal: no edema, pulses present Neurological: non-focal, moves all 4 limbs Dx/Plan (1) Suicide attempt by drug ingestion Code(s): T50.902A - POISONING BY UNSP DRUG/MEDS/BIOL SUBST, SELF-HARM, INIT Status: Acute Qualifiers: Encounter type: subsequent encounter Qualified Code(s): T50.902D - Poisoning by unspecified drugs, medicaments and biological substances, intentional self-harm, subsequent encounter (2) Bipolar disorder Code(s): F31.9 - BIPOLAR DISORDER, UNSPECIFIED Status: Chronic Qualifiers: Active/Remission status: remission status unspecified Qualified Code(s): F31.9 - Bipolar disorder, unspecified (3) Depression Code(s): F32.9 - MAJOR DEPRESSIVE DISORDER, SINGLE EPISODE, UNSPECIFIED Status : Chronic Qualifiers: Depression Type: unspecified Qualified Code(s): F32.9 - Major depressive disorder, single episode, unspecified (4) Morbid obesity with BMI of 45.0-49.9, adult Code(s): E66.01 - MORBID (SEVERE) OBESITY DUE TO EXCESS CALORIES; Z68.42 - BODY MASS INDEX (BMI) 45.0-49.9, ADULT Status: Chronic (5) Schizophrenia Code(s): F20.9 - SCHIZOPHRENIA, UNSPECIFIED Status: Chronic Qualifiers: Schizophrenia type: schizophreniform disorder Qualified Code(s): F20.81 - Schizophreniform disorder - Plan medically stable for tx to in psychiatric facility anytime -: recurrent hosp for drug OD, this time was found in a ditch in [facility] -: to amb in room as tolerated -: to restart his home meds from am * . Review of Systems - Medications/Allergies Allergies/Adverse Reactions: Allergies Allergy/AdvReac Type Severity Reaction Status Date / Time topiramate [From Topamax] Allergy Intermediate Rash Verified 05/09/17 23:07 Medications: Current Medications Acetaminophen (Tylenol) 650 mg PO Q4H PRN PRN Reason: Headache/Fever or Pain Al Hydroxide/Mg Hydroxide (Maalox) 30 ml PO Q6H PRN PRN Reason: Heartburn or Indigestion Enoxaparin Sodium (Lovenox) 40 mg SC 0900 [facility] Last Admin: 08/20/17 08:42 Dose: 40 mg Famotidine (Pepcid) 20 mg PO BID [facility] Last Admin: 08/20/17 08:42 Dose: 20 mg Hydralazine HCl (Apresoline) 10 mg SLOW IVP Q4H PRN PRN Reason: Systolic BP > 180 Lorazepam (Ativan) 1 mg PO Q4H PRN PRN Reason: Anxiety/Agitation Sodium Chloride (Flush - Normal Saline) 10 ml IVF Q12HR [facility] Last Admin: 08/20/17 08:43 Dose: 10 ml Sodium Chloride (Flush - Normal Saline) 10 ml IVF PRN PRN PRN Reason: Saline Flush
[2017-08-20] MEDS: Lorazepam 1 MG TAB PO PRN (16:12)
[2017-08-20] MEDS: Acetaminophen 325 MG TAB PO PRN (20:38)
[2017-08-21 04:40] LABS: Anion Gap 14 mmol/L (10-20); BUN (Urea Nitrogen) 14 mg/dL (8.9-20.6); Calc. Creatinine Clearance 241 mL/min (70-130); Calcium 9.3 mg/dL (7.8-10.44); Carbon Dioxide 25 mmol/L (22-29); Chloride 105 mmol/L (98-107); Estimated GFR-MDRD Greater than 90
[2017-08-21 05:03] LABS: Free T3 2.94 pg/mL (1.71-3.71)
[2017-08-21] MEDS: Famotidine 20 MG TAB PO SCH ×2 (08:54→20:48)
[2017-08-21] MEDS: Venlafaxine HCl XR 75 MG CAP PO SCH (08:55)
[2017-08-21] MEDS: Enoxaparin Sodium 40 MG/0.4 ML SYRINGE SC SCH (08:56)
--- NOTE | 2017-08-21 12:58 | PDOC.PN ---
- Subjective Encounter Start Date: 08/21/17 Encounter Start Time: 12:00 Subjective: awake, watching tv -: not in distress - Objective Resuscitation Status: Resuscitation Status FULL:Full Resuscitation MAR Reviewed: Yes Vital Signs & Weight: Vital Signs (12 hours) Temp Pulse Resp BP Pulse Ox 08/21/17 07:41 98.5 F 62 16 127/65 96 Weight Weight 301 lb 6.4 oz I&O: 08/20/17 08/21/17 08/22/17 07:59 06:59 06:59 Intake Total Output Total Balance Result Diagrams: 08/18/17 05:01 08/21/17 04:17 Phys Exam - Physical Examination HEENT: PERRLA, moist MMs Neck: no JVD, supple Respiratory: no wheezing, no rales Cardiovascular: RRR, no significant murmur Gastrointestinal: soft, non-tender, positive bowel sounds Musculoskeletal: no edema, pulses present Neurological: non-focal, moves all 4 limbs Dx/Plan (1) Suicide attempt by drug ingestion Code(s): T50.902A - POISONING BY UNSP DRUG/MEDS/BIOL SUBST, SELF-HARM, INIT Status: Acute Qualifiers: Encounter type: subsequent encounter Qualified Code(s): T50.902D - Poisoning by unspecified drugs, medicaments and biological substances, intentional self-harm, subsequent encounter (2) Bipolar disorder Code(s): F31.9 - BIPOLAR DISORDER, UNSPECIFIED Status: Chronic Qualifiers: Active/Remission status: remission status unspecified Qualified Code(s): F31.9 - Bipolar disorder, unspecified (3) Depression Code(s): F32.9 - MAJOR DEPRESSIVE DISORDER, SINGLE EPISODE, UNSPECIFIED Status : Chronic Qualifiers: Depression Type: unspecified Qualified Code(s): F32.9 - Major depressive disorder, single episode, unspecified (4) Morbid obesity with BMI of 45.0-49.9, adult Code(s): E66.01 - MORBID (SEVERE) OBESITY DUE TO EXCESS CALORIES; Z68.42 - BODY MASS INDEX (BMI) 45.0-49.9, ADULT Status: Chronic (5) Schizophrenia Code(s): F20.9 - SCHIZOPHRENIA, UNSPECIFIED Status: Chronic Qualifiers: Schizophrenia type: schizophreniform disorder Qualified Code(s): F20.81 - Schizophreniform disorder - Plan awaiting [facility] bed -: hemostable -: small dose of synthroid with elevated tsh and normal free t3,4 -: may dc anytime if [facility] accepts him -: needs to amb in hallway * . Review of Systems - Medications/Allergies Allergies/Adverse Reactions: Allergies Allergy/AdvReac Type Severity Reaction Status Date / Time topiramate [From Topamax] Allergy Intermediate Rash Verified 05/09/17 23:07 Medications: Current Medications Acetaminophen (Tylenol) 650 mg PO Q4H PRN PRN Reason: Headache/Fever or Pain Last Admin: 08/20/17 20:38 Dose: 650 mg Al Hydroxide/Mg Hydroxide (Maalox) 30 ml PO Q6H PRN PRN Reason: Heartburn or Indigestion Enoxaparin Sodium (Lovenox) 40 mg SC 0900 [facility] Last Admin: 08/21/17 08:56 Dose: 40 mg Famotidine (Pepcid) 20 mg PO BID [facility] Last Admin: 08/21/17 08:54 Dose: 20 mg Hydralazine HCl (Apresoline) 10 mg SLOW IVP Q4H PRN PRN Reason: Systolic BP > 180 Levothyroxine Sodium (Synthroid) 50 mcg PO 0600 [facility] Lorazepam (Ativan) 1 mg PO Q4H PRN PRN Reason: Anxiety/Agitation Last Admin: 08/20/17 16:12 Dose: 1 mg Sodium Chloride (Flush - Normal Saline) 10 ml IVF Q12HR [facility] Last Admin: 08/21/17 08:54 Dose: 10 ml Sodium Chloride (Flush - Normal Saline) 10 ml IVF PRN PRN PRN Reason: Saline Flush Venlafaxine HCl (Effexor Xr) 75 mg PO DAILY [facility] Last Admin: 08/21/17 08:55 Dose: 75 mg
[2017-08-21] MEDS: Acetaminophen 325 MG TAB PO PRN (22:49)
[2017-08-22] MEDS: Levothyroxine Sodium 50 MCG TAB PO SCH (05:33)
[2017-08-22] MEDS: Enoxaparin Sodium 40 MG/0.4 ML SYRINGE SC SCH (08:18)
[2017-08-22] MEDS: Famotidine 20 MG TAB PO SCH ×2 (08:18→21:09)
[2017-08-22] MEDS: Venlafaxine HCl XR 75 MG CAP PO SCH (08:18)
--- NOTE | 2017-08-22 12:21 | PDOC.PN ---
- Subjective Encounter Start Date: 08/22/17 Encounter Start Time: 12:15 Subjective: is awake, no sob -: not in distress - Objective Resuscitation Status: Resuscitation Status FULL:Full Resuscitation MAR Reviewed: Yes Vital Signs & Weight: Vital Signs (12 hours) Temp Pulse Resp BP Pulse Ox 08/22/17 09:13 97.2 F L 61 18 105/54 L 98 08/22/17 08:00 97.2 F L 61 18 98 Weight Weight 301 lb 6.4 oz I&O: 08/21/17 08/22/17 08/23/17 06:59 06:59 06:59 Intake Total 1400 Balance 1400 Result Diagrams: 08/18/17 05:01 08/21/17 04:17 Phys Exam - Physical Examination HEENT: PERRLA, moist MMs Neck: no JVD, supple Respiratory: no wheezing, no rales Cardiovascular: RRR, no significant murmur Gastrointestinal: soft, non-tender, positive bowel sounds Musculoskeletal: no edema, pulses present Neurological: non-focal, moves all 4 limbs Dx/Plan (1) Suicide attempt by drug ingestion Code(s): T50.902A - POISONING BY UNSP DRUG/MEDS/BIOL SUBST, SELF-HARM, INIT Status: Acute Qualifiers: Encounter type: subsequent encounter Qualified Code(s): T50.902D - Poisoning by unspecified drugs, medicaments and biological substances, intentional self-harm, subsequent encounter (2) Bipolar disorder Code(s): F31.9 - BIPOLAR DISORDER, UNSPECIFIED Status: Chronic Qualifiers: Active/Remission status: remission status unspecified Qualified Code(s): F31.9 - Bipolar disorder, unspecified (3) Depression Code(s): F32.9 - MAJOR DEPRESSIVE DISORDER, SINGLE EPISODE, UNSPECIFIED Status : Chronic Qualifiers: Depression Type: unspecified Qualified Code(s): F32.9 - Major depressive disorder, single episode, unspecified (4) Morbid obesity with BMI of 45.0-49.9, adult Code(s): E66.01 - MORBID (SEVERE) OBESITY DUE TO EXCESS CALORIES; Z68.42 - BODY MASS INDEX (BMI) 45.0-49.9, ADULT Status: Chronic (5) Schizophrenia Code(s): F20.9 - SCHIZOPHRENIA, UNSPECIFIED Status: Chronic Qualifiers: Schizophrenia type: schizophreniform disorder Qualified Code(s): F20.81 - Schizophreniform disorder - Plan was started on synthroid -: home venlafaxine and gabapentin -: dc plan per [facility] advice -: has had recurrent episodes of OD * . Review of Systems - Medications/Allergies Allergies/Adverse Reactions: Allergies Allergy/AdvReac Type Severity Reaction Status Date / Time topiramate [From Topamax] Allergy Intermediate Rash Verified 05/09/17 23:07 Medications: Current Medications Acetaminophen (Tylenol) 650 mg PO Q4H PRN PRN Reason: Headache/Fever or Pain Last Admin: 08/21/17 22:49 Dose: 650 mg Al Hydroxide/Mg Hydroxide (Maalox) 30 ml PO Q6H PRN PRN Reason: Heartburn or Indigestion Enoxaparin Sodium (Lovenox) 40 mg SC 0900 [facility] Last Admin: 08/22/17 08:18 Dose: 40 mg Famotidine (Pepcid) 20 mg PO BID [facility] Last Admin: 08/22/17 08:18 Dose: 20 mg Hydralazine HCl (Apresoline) 10 mg SLOW IVP Q4H PRN PRN Reason: Systolic BP > 180 Levothyroxine Sodium (Synthroid) 50 mcg PO 0600 [facility] Last Admin: 08/22/17 05:33 Dose: 50 mcg Lorazepam (Ativan) 1 mg PO Q4H PRN PRN Reason: Anxiety/Agitation Last Admin: 08/20/17 16:12 Dose: 1 mg Sodium Chloride (Flush - Normal Saline) 10 ml IVF Q12HR [facility] Last Admin: 08/22/17 08:18 Dose: Not Given Sodium Chloride (Flush - Normal Saline) 10 ml IVF PRN PRN PRN Reason: Saline Flush Venlafaxine HCl (Effexor Xr) 75 mg PO DAILY [facility] Last Admin: 08/22/17 08:18 Dose: 75 mg
[2017-08-22] MEDS ORDERED: Sterile Water 10 ML VIAL FS SCH (16:00)
[2017-08-22] MEDS ORDERED: Ziprasidone 20 MG VIAL IM SCH (16:00)
[2017-08-23] MEDS: Venlafaxine HCl XR 75 MG CAP PO SCH (09:17)
[2017-08-23] MEDS: Enoxaparin Sodium 40 MG/0.4 ML SYRINGE SC SCH (09:17)
[2017-08-23] MEDS: Famotidine 20 MG TAB PO SCH ×2 (09:17→20:16)
[2017-08-23] MEDS: Levothyroxine Sodium 50 MCG TAB PO SCH (09:17)
[2017-08-23] MEDS: Lorazepam 1 MG TAB PO PRN (12:09)
--- NOTE | 2017-08-23 15:16 | PDOC.PN ---
- Subjective Encounter Start Date: 08/23/17 Encounter Start Time: 13:00 Subjective: has a flat affect with minimal talking -: does not make much of an eye contact -: has had recurrent episodes of head banging - Objective Resuscitation Status: Resuscitation Status FULL:Full Resuscitation MAR Reviewed: Yes Vital Signs & Weight: Vital Signs (12 hours) Temp Pulse Resp BP Pulse Ox 08/23/17 08:00 98.7 F 78 16 131/67 98 Weight Weight 301 lb 6.4 oz I&O: 08/22/17 08/23/17 08/24/17 06:59 06:59 06:59 Intake Total 1400 1800 Balance 1400 1800 Result Diagrams: 08/18/17 05:01 08/21/17 04:17 Phys Exam - Physical Examination HEENT: PERRLA, moist MMs Neck: no JVD, supple Respiratory: no wheezing, no rales Cardiovascular: RRR, no significant murmur Gastrointestinal: soft, non-tender, positive bowel sounds Musculoskeletal: no edema, pulses present Neurological: non-focal, moves all 4 limbs Dx/Plan (1) Suicide attempt by drug ingestion Code(s): T50.902A - POISONING BY UNSP DRUG/MEDS/BIOL SUBST, SELF-HARM, INIT Status: Acute Qualifiers: Encounter type: subsequent encounter Qualified Code(s): T50.902D - Poisoning by unspecified drugs, medicaments and biological substances, intentional self-harm, subsequent encounter (2) Bipolar disorder Code(s): F31.9 - BIPOLAR DISORDER, UNSPECIFIED Status: Chronic Qualifiers: Active/Remission status: remission status unspecified Qualified Code(s): F31.9 - Bipolar disorder, unspecified (3) Depression Code(s): F32.9 - MAJOR DEPRESSIVE DISORDER, SINGLE EPISODE, UNSPECIFIED Status : Chronic Qualifiers: Depression Type: unspecified Qualified Code(s): F32.9 - Major depressive disorder, single episode, unspecified (4) Morbid obesity with BMI of 45.0-49.9, adult Code(s): E66.01 - MORBID (SEVERE) OBESITY DUE TO EXCESS CALORIES; Z68.42 - BODY MASS INDEX (BMI) 45.0-49.9, ADULT Status: Chronic (5) Schizophrenia Code(s): F20.9 - SCHIZOPHRENIA, UNSPECIFIED Status: Chronic Qualifiers: Schizophrenia type: schizophreniform disorder Qualified Code(s): F20.81 - Schizophreniform disorder - Plan will increase his geodon to 40mg daily along with cogentin -: is on venlafaxine daily -: will add ativan po 1mg bid -: awaiting [facility] bed * . Review of Systems - Medications/Allergies Allergies/Adverse Reactions: Allergies Allergy/AdvReac Type Severity Reaction Status Date / Time topiramate [From Topamax] Allergy Intermediate Rash Verified 05/09/17 23:07 Medications: Current Medications Acetaminophen (Tylenol) 650 mg PO Q4H PRN PRN Reason: Headache/Fever or Pain Last Admin: 08/21/17 22:49 Dose: 650 mg Al Hydroxide/Mg Hydroxide (Maalox) 30 ml PO Q6H PRN PRN Reason: Heartburn or Indigestion Benztropine Mesylate (Cogentin) 1 mg PO DAILY [facility] Enoxaparin Sodium (Lovenox) 40 mg SC 0900 [facility] Last Admin: 08/23/17 09:17 Dose: 40 mg Famotidine (Pepcid) 20 mg PO BID [facility] Last Admin: 08/23/17 09:17 Dose: 20 mg Hydralazine HCl (Apresoline) 10 mg SLOW IVP Q4H PRN PRN Reason: Systolic BP > 180 Levothyroxine Sodium (Synthroid) 50 mcg PO 0600 [facility] Last Admin: 08/23/17 09:17 Dose: 50 mcg Lorazepam (Ativan) 1 mg PO Q4H PRN PRN Reason: Anxiety/Agitation Last Admin: 08/23/17 12:09 Dose: 1 mg Lorazepam (Ativan) 1 mg PO BID [facility] Sodium Chloride (Flush - Normal Saline) 10 ml IVF Q12HR [facility] Last Admin: 08/23/17 09:19 Dose: Not Given Sodium Chloride (Flush - Normal Saline) 10 ml IVF PRN PRN PRN Reason: Saline Flush Venlafaxine HCl (Effexor Xr) 75 mg PO DAILY [facility] Last Admin: 08/23/17 09:17 Dose: 75 mg Ziprasidone (Geodon) 20 mg PO 1445 [facility] Stop: 08/23/17 17:00 Ziprasidone (Geodon) 40 mg PO QA-[facility]
[2017-08-23] MEDS: Lorazepam 1 MG TAB PO SCH (20:16)
[2017-08-24 05:37] LABS: #Basophils 0.1 thou/uL (0.0-0.2); #Eosinphils 0.3 thou/uL (0.0-0.7); #Monocytes 0.7 thou/uL (0.11-0.59); #Neutrophils 4.5 thou/uL (1.40-6.50); %Basophils 0.6 % (0.0-1.0); %Eosinophils 3.8 % (0.0-10.0); %Lymphocytes 34.7 % (21.0-51.0); %Monocytes 8.4 % (0.0-10.0); Hematocrit 43.6 % (42.0-52.0); Mean Platelet Volume 7.3 fL (7.4-10.4); Red Blood Cell (RBC) Count 5.04 mill/uL (4.70-6.10); White Blood Cell (WBC) Count 8.5 thou/uL (4.8-10.8)
[2017-08-24 05:43] LABS: Anion Gap 14 mmol/L (10-20); BUN (Urea Nitrogen) 15 mg/dL (8.9-20.6); Calc. Creatinine Clearance 231 mL/min (70-130); Calcium 9.2 mg/dL (7.8-10.44); Carbon Dioxide 25 mmol/L (22-29); Chloride 106 mmol/L (98-107); Estimated GFR-MDRD Greater than 90
[2017-08-24] MEDS: Levothyroxine Sodium 50 MCG TAB PO SCH (06:00)
[2017-08-24] MEDS: Famotidine 20 MG TAB PO SCH ×2 (09:02→20:02)
[2017-08-24] MEDS: Venlafaxine HCl XR 75 MG CAP PO SCH (09:02)
[2017-08-24] MEDS: Lorazepam 1 MG TAB PO SCH ×4 (09:02→20:03)
[2017-08-24] MEDS: Enoxaparin Sodium 40 MG/0.4 ML SYRINGE SC SCH (09:05)
--- NOTE | 2017-08-24 14:39 | PDOC.PN ---
- Subjective Encounter Start Date: 08/24/17 Encounter Start Time: 12:30 Subjective: is off restraints from am -: no head banging so far -: is calm and responds to verbal stimuli with brief answers - Objective Resuscitation Status: Resuscitation Status FULL:Full Resuscitation MAR Reviewed: Yes Vital Signs & Weight: Vital Signs (12 hours) Temp Pulse Resp BP BP Pulse Ox 08/24/17 12:00 98.6 F 95 20 123/66 95 08/24/17 08:00 97.4 F L 85 18 114/62 98 08/24/17 04:00 98 F 89 18 123/69 97 Weight Weight 301 lb 6.4 oz I&O: 08/23/17 08/24/17 08/25/17 06:59 06:59 06:59 Intake Total 1800 1680 Balance 1800 1680 Result Diagrams: 08/24/17 05:15 08/24/17 05:15 Phys Exam - Physical Examination HEENT: PERRLA, moist MMs Neck: no JVD, supple Respiratory: no wheezing, no rales Cardiovascular: RRR, no significant murmur Gastrointestinal: soft, non-tender, positive bowel sounds Musculoskeletal: no edema, pulses present Neurological: non-focal, moves all 4 limbs Dx/Plan (1) Suicide attempt by drug ingestion Code(s): T50.902A - POISONING BY UNSP DRUG/MEDS/BIOL SUBST, SELF-HARM, INIT Status: Acute Qualifiers: Encounter type: subsequent encounter Qualified Code(s): T50.902D - Poisoning by unspecified drugs, medicaments and biological substances, intentional self-harm, subsequent encounter (2) Bipolar disorder Code(s): F31.9 - BIPOLAR DISORDER, UNSPECIFIED Status: Chronic Qualifiers: Active/Remission status: remission status unspecified Qualified Code(s): F31.9 - Bipolar disorder, unspecified (3) Depression Code(s): F32.9 - MAJOR DEPRESSIVE DISORDER, SINGLE EPISODE, UNSPECIFIED Status : Chronic Qualifiers: Depression Type: unspecified Qualified Code(s): F32.9 - Major depressive disorder, single episode, unspecified (4) Morbid obesity with BMI of 45.0-49.9, adult Code(s): E66.01 - MORBID (SEVERE) OBESITY DUE TO EXCESS CALORIES; Z68.42 - BODY MASS INDEX (BMI) 45.0-49.9, ADULT Status: Chronic (5) Schizophrenia Code(s): F20.9 - SCHIZOPHRENIA, UNSPECIFIED Status: Chronic Qualifiers: Schizophrenia type: schizophreniform disorder Qualified Code(s): F20.81 - Schizophreniform disorder - Plan is on geodon qd, may increase to bid if his behaviour worsens -: on ativan bid along with venlafaxine and cogentin -: awaiting [facility] bed -: may dc anytime if bed is available -: to amb in hallway as tolerated if cognitively stable * . Review of Systems - Medications/Allergies Allergies/Adverse Reactions: Allergies Allergy/AdvReac Type Severity Reaction Status Date / Time topiramate [From Topamax] Allergy Intermediate Rash Verified 05/09/17 23:07 Medications: Current Medications Acetaminophen (Tylenol) 650 mg PO Q4H PRN PRN Reason: Headache/Fever or Pain Last Admin: 08/21/17 22:49 Dose: 650 mg Al Hydroxide/Mg Hydroxide (Maalox) 30 ml PO Q6H PRN PRN Reason: Heartburn or Indigestion Benztropine Mesylate (Cogentin) 1 mg PO DAILY [facility] Last Admin: 08/24/17 09:02 Dose: 1 mg Enoxaparin Sodium (Lovenox) 40 mg SC 0900 [facility] Last Admin: 08/24/17 09:05 Dose: 40 mg Famotidine (Pepcid) 20 mg PO BID [facility] Last Admin: 08/24/17 09:02 Dose: 20 mg Hydralazine HCl (Apresoline) 10 mg SLOW IVP Q4H PRN PRN Reason: Systolic BP > 180 Levothyroxine Sodium (Synthroid) 50 mcg PO 0600 [facility] Last Admin: 08/24/17 06:00 Dose: 50 mcg Lorazepam (Ativan) 1 mg PO Q4H PRN PRN Reason: Anxiety/Agitation Last Admin: 08/23/17 12:09 Dose: 1 mg Lorazepam (Ativan) 1 mg PO BID [facility] Last Admin: 08/24/17 09:02 Dose: 1 mg Sodium Chloride (Flush - Normal Saline) 10 ml IVF Q12HR [facility] Last Admin: 08/24/17 09:06 Dose: Not Given Sodium Chloride (Flush - Normal Saline) 10 ml IVF PRN PRN PRN Reason: Saline Flush Venlafaxine HCl (Effexor Xr) 75 mg PO DAILY [facility] Last Admin: 08/24/17 09:02 Dose: 75 mg Ziprasidone (Geodon) 40 mg PO QA-[facility] Last Admin: 08/24/17 09:03 Dose: 40 mg
[2017-08-25] MEDS: Levothyroxine Sodium 50 MCG TAB PO SCH (05:08)
[2017-08-25] MEDS: Lorazepam 1 MG TAB PO SCH ×2 (05:08→20:24)
[2017-08-25] MEDS: Famotidine 20 MG TAB PO SCH ×2 (10:13→20:23)
[2017-08-25] MEDS: Venlafaxine HCl XR 75 MG CAP PO SCH (10:14)
[2017-08-25] MEDS: Enoxaparin Sodium 40 MG/0.4 ML SYRINGE SC SCH (10:14)
--- NOTE | 2017-08-25 11:49 | PDOC.PN ---
- Subjective Encounter Start Date: 08/25/17 Encounter Start Time: 10:50 -: old records requested/rev Patient seen and examined. No new complaints. No overnight events - Objective Resuscitation Status: Resuscitation Status FULL:Full Resuscitation MAR Reviewed: Yes Vital Signs & Weight: Weight Weight 301 lb 6.4 oz I&O: 08/24/17 08/25/17 08/26/17 06:59 06:59 06:59 Intake Total 1680 2480 Balance 1680 2480 Result Diagrams: 08/24/17 05:15 08/24/17 05:15 Phys Exam - Physical Examination Constitutional: NAD HEENT: PERRLA, moist MMs, sclera anicteric Neck: no JVD, supple Respiratory: no wheezing, no rales, no rhonchi Cardiovascular: RRR, no significant murmur, no rub Gastrointestinal: soft, non-tender, no distention, positive bowel sounds Musculoskeletal: no edema, pulses present Neurological: non-focal, normal sensation, moves all 4 limbs Psychiatric: normal affect, A&O x 3 Skin: no rash, normal turgor Dx/Plan (1) Subclinical hypothyroidism Code(s): E03.9 - HYPOTHYROIDISM, UNSPECIFIED Status: Acute (2) Suicide attempt by drug ingestion Code(s): T50.902A - POISONING BY UNSP DRUG/MEDS/BIOL SUBST, SELF-HARM, INIT Status: Acute Qualifiers: Encounter type: subsequent encounter Qualified Code(s): T50.902D - Poisoning by unspecified drugs, medicaments and biological substances, intentional self-harm, subsequent encounter (3) Bipolar disorder Code(s): F31.9 - BIPOLAR DISORDER, UNSPECIFIED Status: Chronic Qualifiers: Active/Remission status: remission status unspecified Qualified Code(s): F31.9 - Bipolar disorder, unspecified (4) Depression Code(s): F32.9 - MAJOR DEPRESSIVE DISORDER, SINGLE EPISODE, UNSPECIFIED Status : Chronic Qualifiers: Depression Type: unspecified Qualified Code(s): F32.9 - Major depressive disorder, single episode, unspecified (5) Morbid obesity with BMI of 45.0-49.9, adult Code(s): E66.01 - MORBID (SEVERE) OBESITY DUE TO EXCESS CALORIES; Z68.42 - BODY MASS INDEX (BMI) 45.0-49.9, ADULT Status: Chronic (6) Schizophrenia Code(s): F20.9 - SCHIZOPHRENIA, UNSPECIFIED Status: Chronic Qualifiers: Schizophrenia type: schizophreniform disorder Qualified Code(s): F20.81 - Schizophreniform disorder - Plan cont current plan of care * medication reviewed as below * symptomatic treatment * await [employer] bed. Review of Systems - Review of Systems ENT: negative: Ear Pain, Ear Discharge, Nose Pain, Nose Discharge, Nose Congestion, Mouth Pain, Mouth Swelling, Throat Pain, Throat Swelling, Other Respiratory: negative: Cough, Dry, Shortness of Breath, Hemoptysis, SOB with Excertion, Pleuritic Pain, Sputum, Wheezing Cardiovascular: negative: Chest Pain, Palpitations, Orthopnea, Paroxysmal Noc. Dyspnea, Edema, Light Headedness, Other Gastrointestinal: negative: Nausea, Vomiting, Abdominal Pain, Diarrhea, Constipation, Melena, Hematochezia, Other Genitourinary: negative: Dysuria, Frequency, Incontinence, Hematuria, Retention , Other Musculoskeletal: negative: Neck Pain, Shoulder Pain, Arm Pain, Back Pain, Hand Pain, Leg Pain, Foot Pain, Other Skin: negative: Rash, Lesions, Cameron, Bruising, Other - Medications/Allergies Allergies/Adverse Reactions: Allergies Allergy/AdvReac Type Severity Reaction Status Date / Time topiramate [From Topamax] Allergy Intermediate Rash Verified 05/09/17 23:07 Medications: Current Medications Acetaminophen (Tylenol) 650 mg PO Q4H PRN PRN Reason: Headache/Fever or Pain Last Admin: 08/21/17 22:49 Dose: 650 mg Al Hydroxide/Mg Hydroxide (Maalox) 30 ml PO Q6H PRN PRN Reason: Heartburn or Indigestion Benztropine Mesylate (Cogentin) 1 mg PO DAILY [facility] Last Admin: 08/25/17 10:14 Dose: 1 mg Enoxaparin Sodium (Lovenox) 40 mg SC 0900 [facility] Last Admin: 08/25/17 10:14 Dose: 40 mg Famotidine (Pepcid) 20 mg PO BID [facility] Last Admin: 08/25/17 10:13 Dose: 20 mg Hydralazine HCl (Apresoline) 10 mg SLOW IVP Q4H PRN PRN Reason: Systolic BP > 180 Levothyroxine Sodium (Synthroid) 50 mcg PO 0600 [facility] Last Admin: 08/25/17 05:08 Dose: 50 mcg Lorazepam (Ativan) 1 mg PO Q4H PRN PRN Reason: Anxiety/Agitation Last Admin: 08/23/17 12:09 Dose: 1 mg Lorazepam (Ativan) 1 mg PO BID [facility] Last Admin: 08/25/17 05:08 Dose: 1 mg Sodium Chloride (Flush - Normal Saline) 10 ml IVF Q12HR [facility] Last Admin: 08/25/17 10:15 Dose: Not Given Sodium Chloride (Flush - Normal Saline) 10 ml IVF PRN PRN PRN Reason: Saline Flush Venlafaxine HCl (Effexor Xr) 75 mg PO DAILY [facility] Last Admin: 08/25/17 10:14 Dose: 75 mg Ziprasidone (Geodon) 40 mg PO QA-[facility] Last Admin: 08/25/17 10:13 Dose: 40 mg
[2017-08-26] MEDS: Lorazepam 1 MG TAB PO PRN ×2 (00:26→09:05)
[2017-08-26] MEDS: Levothyroxine Sodium 50 MCG TAB PO SCH (06:03)
[2017-08-26] MEDS: Famotidine 20 MG TAB PO SCH ×3 (08:16→21:42)
[2017-08-26] MEDS: Venlafaxine HCl XR 75 MG CAP PO SCH ×2 (08:16→09:05)
[2017-08-26] MEDS: Enoxaparin Sodium 40 MG/0.4 ML SYRINGE SC SCH ×3 (08:17→09:28)
--- NOTE | 2017-08-26 12:02 | PDOC.PN ---
- Subjective Encounter Start Date: 08/26/17 Encounter Start Time: 10:45 Patient seen and examined. No new complaints. No overnight events - Objective Resuscitation Status: Resuscitation Status FULL:Full Resuscitation MAR Reviewed: Yes Vital Signs & Weight: Vital Signs (12 hours) Temp Pulse Resp 08/26/17 08:00 98.5 F 84 18 Weight Admit Weight 307 lb 3.2 oz Weight 301 lb 6.4 oz I&O: 08/25/17 08/26/17 08/27/17 06:59 06:59 06:59 Intake Total 2480 240 Balance 2480 240 Result Diagrams: 08/24/17 05:15 08/24/17 05:15 Phys Exam - Physical Examination Constitutional: NAD HEENT: PERRLA, moist MMs, sclera anicteric Neck: no JVD, supple Respiratory: no wheezing, no rales, no rhonchi Cardiovascular: RRR, no significant murmur, no rub Gastrointestinal: soft, non-tender, no distention, positive bowel sounds Musculoskeletal: no edema, pulses present Neurological: non-focal, normal sensation Lymphatic: no nodes Psychiatric: normal affect Skin: no rash, normal turgor Dx/Plan (1) Subclinical hypothyroidism Code(s): E03.9 - HYPOTHYROIDISM, UNSPECIFIED Status: Acute (2) Suicide attempt by drug ingestion Code(s): T50.902A - POISONING BY UNSP DRUG/MEDS/BIOL SUBST, SELF-HARM, INIT Status: Acute Qualifiers: Encounter type: subsequent encounter Qualified Code(s): T50.902D - Poisoning by unspecified drugs, medicaments and biological substances, intentional self-harm, subsequent encounter (3) Bipolar disorder Code(s): F31.9 - BIPOLAR DISORDER, UNSPECIFIED Status: Chronic Qualifiers: Active/Remission status: remission status unspecified Qualified Code(s): F31.9 - Bipolar disorder, unspecified (4) Depression Code(s): F32.9 - MAJOR DEPRESSIVE DISORDER, SINGLE EPISODE, UNSPECIFIED Status : Chronic Qualifiers: Depression Type: unspecified Qualified Code(s): F32.9 - Major depressive disorder, single episode, unspecified (5) Morbid obesity with BMI of 45.0-49.9, adult Code(s): E66.01 - MORBID (SEVERE) OBESITY DUE TO EXCESS CALORIES; Z68.42 - BODY MASS INDEX (BMI) 45.0-49.9, ADULT Status: Chronic (6) Schizophrenia Code(s): F20.9 - SCHIZOPHRENIA, UNSPECIFIED Status: Chronic Qualifiers: Schizophrenia type: schizophreniform disorder Qualified Code(s): F20.81 - Schizophreniform disorder - Plan cont current plan of care * reduce synthroid 25 mcg po daily * medication reviewed as below * symptomatic treatment. Review of Systems - Review of Systems ENT: negative: Ear Pain, Ear Discharge, Nose Pain, Nose Discharge, Nose Congestion, Mouth Pain, Mouth Swelling, Throat Pain, Throat Swelling, Other Respiratory: negative: Cough, Dry, Shortness of Breath, Hemoptysis, SOB with Excertion, Pleuritic Pain, Sputum, Wheezing Cardiovascular: negative: Chest Pain, Palpitations, Orthopnea, Paroxysmal Noc. Dyspnea, Edema, Light Headedness, Other Gastrointestinal: negative: Nausea, Vomiting, Abdominal Pain, Diarrhea, Constipation, Melena, Hematochezia, Other Genitourinary: negative: Dysuria, Frequency, Incontinence, Hematuria, Retention , Other Musculoskeletal: negative: Neck Pain, Shoulder Pain, Arm Pain, Back Pain, Hand Pain, Leg Pain, Foot Pain, Other - Medications/Allergies Allergies/Adverse Reactions: Allergies Allergy/AdvReac Type Severity Reaction Status Date / Time topiramate [From Topamax] Allergy Intermediate Rash Verified 05/09/17 23:07 Medications: Current Medications Acetaminophen (Tylenol) 650 mg PO Q4H PRN PRN Reason: Headache/Fever or Pain Last Admin: 08/21/17 22:49 Dose: 650 mg Al Hydroxide/Mg Hydroxide (Maalox) 30 ml PO Q6H PRN PRN Reason: Heartburn or Indigestion Benztropine Mesylate (Cogentin) 1 mg PO DAILY [facility] Last Admin: 08/26/17 09:05 Dose: 1 mg Enoxaparin Sodium (Lovenox) 40 mg SC 0900 [facility] Last Admin: 08/26/17 09:28 Dose: 40 mg Famotidine (Pepcid) 20 mg PO BID [facility] Last Admin: 08/26/17 09:05 Dose: 20 mg Hydralazine HCl (Apresoline) 10 mg SLOW IVP Q4H PRN PRN Reason: Systolic BP > 180 Levothyroxine Sodium (Synthroid) 50 mcg PO 0600 [facility] Last Admin: 08/26/17 06:03 Dose: 50 mcg Lorazepam (Ativan) 1 mg PO Q4H PRN PRN Reason: Anxiety/Agitation Last Admin: 08/26/17 09:05 Dose: 1 mg Lorazepam (Ativan) 1 mg PO BID [facility] Last Admin: 08/25/17 20:24 Dose: 1 mg Sodium Chloride (Flush - Normal Saline) 10 ml IVF Q12HR [facility] Last Admin: 08/26/17 08:17 Dose: Not Given Sodium Chloride (Flush - Normal Saline) 10 ml IVF PRN PRN PRN Reason: Saline Flush Venlafaxine HCl (Effexor Xr) 75 mg PO DAILY [facility] Last Admin: 08/26/17 09:05 Dose: 75 mg Ziprasidone (Geodon) 40 mg PO QA-[facility] Last Admin: 08/26/17 09:02 Dose: 40 mg
[2017-08-26] MEDS: Lorazepam 1 MG TAB PO SCH (21:42)
[2017-08-27] MEDS: Lorazepam 1 MG TAB PO PRN (00:40)
[2017-08-27] MEDS: Levothyroxine Sodium 25 MCG TAB PO SCH (05:43)
[2017-08-27] MEDS: Famotidine 20 MG TAB PO SCH ×2 (08:44→20:52)
[2017-08-27] MEDS: Venlafaxine HCl XR 75 MG CAP PO SCH (08:44)
[2017-08-27] MEDS: Enoxaparin Sodium 40 MG/0.4 ML SYRINGE SC SCH (08:45)
[2017-08-27] MEDS: Lorazepam 1 MG TAB PO SCH ×2 (08:45→20:52)
--- NOTE | 2017-08-27 11:54 | PDOC.PN ---
- Subjective Encounter Start Date: 08/27/17 Encounter Start Time: 10:40 Patient seen and examined. No new complaints. No overnight events - Objective Resuscitation Status: Resuscitation Status FULL:Full Resuscitation MAR Reviewed: Yes Vital Signs & Weight: Vital Signs (12 hours) Temp Pulse Resp BP Pulse Ox 08/27/17 08:00 98.6 F 70 20 08/27/17 07:50 98.6 F 70 20 123/92 H 96 Weight Admit Weight 307 lb 3.2 oz Weight 301 lb 6.4 oz I&O: 08/26/17 08/27/17 08/28/17 06:59 06:59 06:59 Intake Total 240 1460 Output Total 1 Balance 240 1459 Result Diagrams: 08/24/17 05:15 08/24/17 05:15 Phys Exam - Physical Examination Constitutional: NAD HEENT: PERRLA, moist MMs, sclera anicteric Neck: no JVD, supple Respiratory: no wheezing, no rales, no rhonchi Cardiovascular: RRR, no significant murmur, no rub Gastrointestinal: soft, non-tender, no distention, positive bowel sounds Musculoskeletal: no edema, pulses present Neurological: non-focal, normal sensation, moves all 4 limbs Lymphatic: no nodes Psychiatric: normal affect, A&O x 3 Skin: no rash, normal turgor Dx/Plan (1) Subclinical hypothyroidism Code(s): E03.9 - HYPOTHYROIDISM, UNSPECIFIED Status: Acute (2) Suicide attempt by drug ingestion Code(s): T50.902A - POISONING BY UNSP DRUG/MEDS/BIOL SUBST, SELF-HARM, INIT Status: Acute Qualifiers: Encounter type: subsequent encounter Qualified Code(s): T50.902D - Poisoning by unspecified drugs, medicaments and biological substances, intentional self-harm, subsequent encounter (3) Bipolar disorder Code(s): F31.9 - BIPOLAR DISORDER, UNSPECIFIED Status: Chronic Qualifiers: Active/Remission status: remission status unspecified Qualified Code(s): F31.9 - Bipolar disorder, unspecified (4) Depression Code(s): F32.9 - MAJOR DEPRESSIVE DISORDER, SINGLE EPISODE, UNSPECIFIED Status : Chronic Qualifiers: Depression Type: unspecified Qualified Code(s): F32.9 - Major depressive disorder, single episode, unspecified (5) Morbid obesity with BMI of 45.0-49.9, adult Code(s): E66.01 - MORBID (SEVERE) OBESITY DUE TO EXCESS CALORIES; Z68.42 - BODY MASS INDEX (BMI) 45.0-49.9, ADULT Status: Chronic (6) Schizophrenia Code(s): F20.9 - SCHIZOPHRENIA, UNSPECIFIED Status: Chronic Qualifiers: Schizophrenia type: schizophreniform disorder Qualified Code(s): F20.81 - Schizophreniform disorder - 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 Review of Systems - Review of Systems ENT: negative: Ear Pain, Ear Discharge, Nose Pain, Nose Discharge, Nose Congestion, Mouth Pain, Mouth Swelling, Throat Pain, Throat Swelling, Other Respiratory: negative: Cough, Dry, Shortness of Breath, Hemoptysis, SOB with Excertion, Pleuritic Pain, Sputum, Wheezing Cardiovascular: negative: Chest Pain, Palpitations, Orthopnea, Paroxysmal Noc. Dyspnea, Edema, Light Headedness, Other Gastrointestinal: negative: Nausea, Vomiting, Abdominal Pain, Diarrhea, Constipation, Melena, Hematochezia, Other Genitourinary: negative: Dysuria, Frequency, Incontinence, Hematuria, Retention , Other Musculoskeletal: negative: Neck Pain, Shoulder Pain, Arm Pain, Back Pain, Hand Pain, Leg Pain, Foot Pain, Other Skin: negative: Rash, Lesions, Cameron, Bruising, Other - Medications/Allergies Allergies/Adverse Reactions: Allergies Allergy/AdvReac Type Severity Reaction Status Date / Time topiramate [From Topamax] Allergy Intermediate Rash Verified 05/09/17 23:07 Medications: Current Medications Acetaminophen (Tylenol) 650 mg PO Q4H PRN PRN Reason: Headache/Fever or Pain Last Admin: 08/21/17 22:49 Dose: 650 mg Al Hydroxide/Mg Hydroxide (Maalox) 30 ml PO Q6H PRN PRN Reason: Heartburn or Indigestion Benztropine Mesylate (Cogentin) 1 mg PO DAILY [facility] Last Admin: 08/27/17 08:44 Dose: 1 mg Enoxaparin Sodium (Lovenox) 40 mg SC 0900 [facility] Last Admin: 08/27/17 08:45 Dose: 40 mg Famotidine (Pepcid) 20 mg PO BID [facility] Last Admin: 08/27/17 08:44 Dose: 20 mg Hydralazine HCl (Apresoline) 10 mg SLOW IVP Q4H PRN PRN Reason: Systolic BP > 180 Levothyroxine Sodium (Synthroid) 25 mcg PO 0600 [facility] Last Admin: 08/27/17 05:43 Dose: 25 mcg Lorazepam (Ativan) 1 mg PO Q4H PRN PRN Reason: Anxiety/Agitation Last Admin: 08/27/17 00:40 Dose: 1 mg Lorazepam (Ativan) 1 mg PO BID [facility] Last Admin: 08/27/17 08:45 Dose: 1 mg Sodium Chloride (Flush - Normal Saline) 10 ml IVF Q12HR [facility] Last Admin: 08/27/17 10:42 Dose: Not Given Sodium Chloride (Flush - Normal Saline) 10 ml IVF PRN PRN PRN Reason: Saline Flush Venlafaxine HCl (Effexor Xr) 75 mg PO DAILY [facility] Last Admin: 08/27/17 08:44 Dose: 75 mg Ziprasidone (Geodon) 40 mg PO QA-[facility] Last Admin: 08/27/17 08:47 Dose: 40 mg
--- NOTE | 2017-08-27 12:54 | EKG ---
Test Reason : Blood Pressure : / mmHG Vent. Rate : 144 BPM Atrial Rate : 144 BPM P-R Int : 130 ms QRS Dur : 086 ms QT Int : 282 ms P-R-T Axes : 047 016 027 degrees QTc Int : 436 ms Sinus tachycardia Possible Left atrial enlargement Nonspecific ST abnormality Abnormal ECG Confirmed by LY MORA MD ([id number]), electronic news gathering editor LARRY MCCARTHY ([id number]) on 08/27/2017 12:54:31 PM Referred By: Confirmed By:LY MORA MD
--- NOTE | 2017-08-27 12:55 | EKG ---
Test Reason : Blood Pressure : / mmHG Vent. Rate : 144 BPM Atrial Rate : 144 BPM P-R Int : 124 ms QRS Dur : 078 ms QT Int : 274 ms P-R-T Axes : 044 001 020 degrees QTc Int : 424 ms Sinus tachycardia Otherwise normal ECG Confirmed by LY MORA MD ([id number]), subeditor LARRY MCCARTHY ([id number]) on 08/27/2017 12:54:43 PM Referred By: Confirmed By:LY MORA MD
[2017-08-28] MEDS: Lorazepam 1 MG TAB PO PRN (03:20)
[2017-08-28] MEDS: Levothyroxine Sodium 25 MCG TAB PO SCH (06:26)
[2017-08-28] MEDS: Venlafaxine HCl XR 75 MG CAP PO SCH (09:01)
[2017-08-28] MEDS: Lorazepam 1 MG TAB PO SCH ×2 (09:01→20:44)
[2017-08-28] MEDS: Famotidine 20 MG TAB PO SCH ×2 (09:01→20:43)
[2017-08-28] MEDS: Enoxaparin Sodium 40 MG/0.4 ML SYRINGE SC SCH (09:02)
--- NOTE | 2017-08-28 12:31 | PDOC.PN ---
- Subjective Encounter Start Date: 08/28/17 Encounter Start Time: 07:40 Patient seen and examined. No new complaints. No overnight events - Objective Resuscitation Status: Resuscitation Status FULL:Full Resuscitation MAR Reviewed: Yes Vital Signs & Weight: Vital Signs (12 hours) Temp Pulse Resp BP Pulse Ox 08/28/17 08:00 98.1 F 74 18 08/28/17 04:00 98.3 F 78 20 123/88 97 Weight Admit Weight 307 lb 3.2 oz Weight 301 lb 6.4 oz I&O: 08/27/17 08/28/17 08/29/17 06:59 06:59 06:59 Intake Total 1460 2960 Output Total 1 Balance 1459 2960 Result Diagrams: 08/24/17 05:15 08/24/17 05:15 Phys Exam - Physical Examination Constitutional: NAD HEENT: PERRLA, moist MMs, sclera anicteric Neck: no JVD, supple Respiratory: no wheezing, no rales, no rhonchi Cardiovascular: RRR, no significant murmur, no rub Gastrointestinal: soft, non-tender, no distention, positive bowel sounds Musculoskeletal: no edema, pulses present Neurological: non-focal, normal sensation Psychiatric: normal affect, A&O x 3 Skin: no rash, normal turgor Dx/Plan (1) Subclinical hypothyroidism Code(s): E03.9 - HYPOTHYROIDISM, UNSPECIFIED Status: Acute (2) Suicide attempt by drug ingestion Code(s): T50.902A - POISONING BY UNSP DRUG/MEDS/BIOL SUBST, SELF-HARM, INIT Status: Acute Qualifiers: Encounter type: subsequent encounter Qualified Code(s): T50.902D - Poisoning by unspecified drugs, medicaments and biological substances, intentional self-harm, subsequent encounter (3) Bipolar disorder Code(s): F31.9 - BIPOLAR DISORDER, UNSPECIFIED Status: Chronic Qualifiers: Active/Remission status: remission status unspecified Qualified Code(s): F31.9 - Bipolar disorder, unspecified (4) Depression Code(s): F32.9 - MAJOR DEPRESSIVE DISORDER, SINGLE EPISODE, UNSPECIFIED Status : Chronic Qualifiers: Depression Type: unspecified Qualified Code(s): F32.9 - Major depressive disorder, single episode, unspecified (5) Morbid obesity with BMI of 45.0-49.9, adult Code(s): E66.01 - MORBID (SEVERE) OBESITY DUE TO EXCESS CALORIES; Z68.42 - BODY MASS INDEX (BMI) 45.0-49.9, ADULT Status: Chronic (6) Schizophrenia Code(s): F20.9 - SCHIZOPHRENIA, UNSPECIFIED Status: Chronic Qualifiers: Schizophrenia type: schizophreniform disorder Qualified Code(s): F20.81 - Schizophreniform disorder - 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 Review of Systems - Review of Systems ENT: negative: Ear Pain, Ear Discharge, Nose Pain, Nose Discharge, Nose Congestion, Mouth Pain, Mouth Swelling, Throat Pain, Throat Swelling, Other Respiratory: negative: Cough, Dry, Shortness of Breath, Hemoptysis, SOB with Excertion, Pleuritic Pain, Sputum, Wheezing Cardiovascular: negative: Chest Pain, Palpitations, Orthopnea, Paroxysmal Noc. Dyspnea, Edema, Light Headedness, Other Gastrointestinal: negative: Nausea, Vomiting, Abdominal Pain, Diarrhea, Constipation, Melena, Hematochezia, Other Genitourinary: negative: Dysuria, Frequency, Incontinence, Hematuria, Retention , Other Musculoskeletal: negative: Neck Pain, Shoulder Pain, Arm Pain, Back Pain, Hand Pain, Leg Pain, Foot Pain, Other Skin: negative: Rash, Lesions, Cameron, Bruising, Other - Medications/Allergies Allergies/Adverse Reactions: Allergies Allergy/AdvReac Type Severity Reaction Status Date / Time topiramate [From Topamax] Allergy Intermediate Rash Verified 05/09/17 23:07 Medications: Current Medications Acetaminophen (Tylenol) 650 mg PO Q4H PRN PRN Reason: Headache/Fever or Pain Last Admin: 08/21/17 22:49 Dose: 650 mg Al Hydroxide/Mg Hydroxide (Maalox) 30 ml PO Q6H PRN PRN Reason: Heartburn or Indigestion Benztropine Mesylate (Cogentin) 1 mg PO DAILY [facility] Last Admin: 08/28/17 09:01 Dose: 1 mg Enoxaparin Sodium (Lovenox) 40 mg SC 0900 [facility] Last Admin: 08/28/17 09:02 Dose: 40 mg Famotidine (Pepcid) 20 mg PO BID [facility] Last Admin: 08/28/17 09:01 Dose: 20 mg Hydralazine HCl (Apresoline) 10 mg SLOW IVP Q4H PRN PRN Reason: Systolic BP > 180 Levothyroxine Sodium (Synthroid) 25 mcg PO 0600 [facility] Last Admin: 08/28/17 06:26 Dose: 25 mcg Lorazepam (Ativan) 1 mg PO BID [facility] Last Admin: 08/28/17 09:01 Dose: 1 mg Sodium Chloride (Flush - Normal Saline) 10 ml IVF Q12HR [facility] Last Admin: 08/28/17 09:02 Dose: Not Given Sodium Chloride (Flush - Normal Saline) 10 ml IVF PRN PRN PRN Reason: Saline Flush Venlafaxine HCl (Effexor Xr) 75 mg PO DAILY [facility] Last Admin: 08/28/17 09:01 Dose: 75 mg Ziprasidone (Geodon) 40 mg PO QA-[facility] Last Admin: 08/28/17 09:02 Dose: 40 mg
[2017-08-29] MEDS ORDERED: Melatonin 3 MG TAB PO SCH (01:45)
[2017-08-29] MEDS ORDERED: diphenhydrAMINE 25 MG CAP PO SCH (01:45)
[2017-08-29] MEDS: Levothyroxine Sodium 25 MCG TAB PO SCH (05:46)
[2017-08-29] MEDS: Famotidine 20 MG TAB PO SCH ×2 (08:33→20:57)
[2017-08-29] MEDS: Venlafaxine HCl XR 75 MG CAP PO SCH (08:33)
[2017-08-29] MEDS: Lorazepam 1 MG TAB PO SCH ×2 (08:33→20:57)
[2017-08-29] MEDS: Enoxaparin Sodium 40 MG/0.4 ML SYRINGE SC SCH (08:36)
[2017-08-29] MEDS ORDERED: Lorazepam 2 MG/ML VIAL SLOW IVP PRN (09:18)
[2017-08-29] MEDS ORDERED: diphenhydrAMINE 50 MG/ML VIAL IVP PRN (09:18)
--- NOTE | 2017-08-29 13:21 | PDOC.PN ---
- Subjective Encounter Start Date: 08/29/17 Encounter Start Time: 07:45 Patient seen and examined. No new complaints. No overnight events - Objective Resuscitation Status: Resuscitation Status FULL:Full Resuscitation MAR Reviewed: Yes Vital Signs & Weight: Vital Signs (12 hours) Temp Pulse Resp BP Pulse Ox 08/29/17 08:00 98.6 F 87 16 96 08/29/17 07:16 98.6 F 87 16 119/56 L 100 Weight Admit Weight 307 lb 3.2 oz Weight 301 lb 6.4 oz I&O: 08/28/17 08/29/17 08/30/17 06:59 06:59 06:59 Intake Total 2960 1000 Balance 2960 1000 Result Diagrams: 08/24/17 05:15 08/24/17 05:15 Phys Exam - Physical Examination Constitutional: NAD HEENT: PERRLA, moist MMs, sclera anicteric Neck: no JVD, supple Respiratory: no wheezing, no rales, no rhonchi Cardiovascular: RRR, no significant murmur, no rub Gastrointestinal: soft, non-tender, no distention, positive bowel sounds Musculoskeletal: no edema, pulses present Neurological: non-focal, normal sensation Psychiatric: normal affect, A&O x 3 Skin: no rash, normal turgor Dx/Plan (1) Subclinical hypothyroidism Code(s): E03.9 - HYPOTHYROIDISM, UNSPECIFIED Status: Acute (2) Suicide attempt by drug ingestion Code(s): T50.902A - POISONING BY UNSP DRUG/MEDS/BIOL SUBST, SELF-HARM, INIT Status: Acute Qualifiers: Encounter type: subsequent encounter Qualified Code(s): T50.902D - Poisoning by unspecified drugs, medicaments and biological substances, intentional self-harm, subsequent encounter (3) Bipolar disorder Code(s): F31.9 - BIPOLAR DISORDER, UNSPECIFIED Status: Chronic Qualifiers: Active/Remission status: remission status unspecified Qualified Code(s): F31.9 - Bipolar disorder, unspecified (4) Depression Code(s): F32.9 - MAJOR DEPRESSIVE DISORDER, SINGLE EPISODE, UNSPECIFIED Status : Chronic Qualifiers: Depression Type: unspecified Qualified Code(s): F32.9 - Major depressive disorder, single episode, unspecified (5) Morbid obesity with BMI of 45.0-49.9, adult Code(s): E66.01 - MORBID (SEVERE) OBESITY DUE TO EXCESS CALORIES; Z68.42 - BODY MASS INDEX (BMI) 45.0-49.9, ADULT Status: Chronic (6) Schizophrenia Code(s): F20.9 - SCHIZOPHRENIA, UNSPECIFIED Status: Chronic Qualifiers: Schizophrenia type: schizophreniform disorder Qualified Code(s): F20.81 - Schizophreniform disorder - 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 Review of Systems - Review of Systems ENT: negative: Ear Pain, Ear Discharge, Nose Pain, Nose Discharge, Nose Congestion, Mouth Pain, Mouth Swelling, Throat Pain, Throat Swelling, Other Respiratory: negative: Cough, Dry, Shortness of Breath, Hemoptysis, SOB with Excertion, Pleuritic Pain, Sputum, Wheezing Cardiovascular: negative: Chest Pain, Palpitations, Orthopnea, Paroxysmal Noc. Dyspnea, Edema, Light Headedness, Other Gastrointestinal: negative: Nausea, Vomiting, Abdominal Pain, Diarrhea, Constipation, Melena, Hematochezia, Other Genitourinary: negative: Dysuria, Frequency, Incontinence, Hematuria, Retention , Other Musculoskeletal: negative: Neck Pain, Shoulder Pain, Arm Pain, Back Pain, Hand Pain, Leg Pain, Foot Pain, Other - Medications/Allergies Allergies/Adverse Reactions: Allergies Allergy/AdvReac Type Severity Reaction Status Date / Time topiramate [From Topamax] Allergy Intermediate Rash Verified 05/09/17 23:07 Medications: Current Medications Acetaminophen (Tylenol) 650 mg PO Q4H PRN PRN Reason: Headache/Fever or Pain Last Admin: 08/21/17 22:49 Dose: 650 mg Al Hydroxide/Mg Hydroxide (Maalox) 30 ml PO Q6H PRN PRN Reason: Heartburn or Indigestion Benztropine Mesylate (Cogentin) 1 mg PO DAILY [facility] Last Admin: 08/29/17 08:33 Dose: 1 mg Diphenhydramine HCl (Benadryl) 25 mg IVP PRN PRN PRN Reason: Agitation Enoxaparin Sodium (Lovenox) 40 mg SC 0900 [facility] Last Admin: 08/29/17 08:36 Dose: 40 mg Famotidine (Pepcid) 20 mg PO BID [facility] Last Admin: 08/29/17 08:33 Dose: 20 mg Haloperidol Lactate (Haldol) 5 mg IM PRN PRN PRN Reason: Agitation Hydralazine HCl (Apresoline) 10 mg SLOW IVP Q4H PRN PRN Reason: Systolic BP > 180 Levothyroxine Sodium (Synthroid) 25 mcg PO 0600 [facility] Last Admin: 08/29/17 05:46 Dose: 25 mcg Lorazepam (Ativan) 1 mg PO BID [facility] Last Admin: 08/29/17 08:33 Dose: 1 mg Lorazepam (Ativan) 1 mg SLOW IVP PRN PRN PRN Reason: Anxiety/Agitation Sodium Chloride (Flush - Normal Saline) 10 ml IVF Q12HR [facility] Last Admin: 08/29/17 08:33 Dose: Not Given Sodium Chloride (Flush - Normal Saline) 10 ml IVF PRN PRN PRN Reason: Saline Flush Venlafaxine HCl (Effexor Xr) 75 mg PO DAILY [facility] Last Admin: 08/29/17 08:33 Dose: 75 mg Ziprasidone (Geodon) 40 mg PO QA-[facility] Last Admin: 08/29/17 08:32 Dose: 40 mg
[2017-08-29] MEDS: Haloperidol Lactate 5 MG/ML VIAL IM PRN (20:57)
[2017-08-30] MEDS: Levothyroxine Sodium 25 MCG TAB PO SCH (06:00)
[2017-08-30] MEDS: Venlafaxine HCl XR 75 MG CAP PO SCH (08:24)
[2017-08-30] MEDS: Lorazepam 1 MG TAB PO SCH ×2 (08:25→21:20)
[2017-08-30] MEDS: Famotidine 20 MG TAB PO SCH ×2 (08:25→21:20)
[2017-08-30] MEDS: Enoxaparin Sodium 40 MG/0.4 ML SYRINGE SC SCH (08:25)
--- NOTE | 2017-08-30 13:27 | PDOC.PN ---
- Subjective Encounter Start Date: 08/30/17 Encounter Start Time: 10:45 Patient seen and examined. No new complaints. No overnight events - Objective Resuscitation Status: Resuscitation Status FULL:Full Resuscitation MAR Reviewed: Yes Vital Signs & Weight: Vital Signs (12 hours) Temp Pulse Resp BP Pulse Ox 08/30/17 08:19 97.8 F 58 L 16 125/59 L 97 08/30/17 08:00 97.8 F 58 L 16 Weight Admit Weight 307 lb 3.2 oz Weight 301 lb 6.4 oz I&O: 08/29/17 08/30/17 08/31/17 06:59 06:59 06:59 Intake Total 1000 480 120 Balance 1000 480 120 Result Diagrams: 08/24/17 05:15 08/24/17 05:15 Phys Exam - Physical Examination Constitutional: NAD HEENT: PERRLA, moist MMs, sclera anicteric Neck: no JVD, supple Respiratory: no wheezing, no rales, no rhonchi Cardiovascular: RRR, no significant murmur, no rub Gastrointestinal: soft, non-tender, no distention, positive bowel sounds Musculoskeletal: no edema, pulses present Neurological: non-focal, normal sensation, moves all 4 limbs Lymphatic: no nodes Psychiatric: normal affect, A&O x 3 Skin: no rash, normal turgor Dx/Plan (1) Subclinical hypothyroidism Code(s): E03.9 - HYPOTHYROIDISM, UNSPECIFIED Status: Acute (2) Suicide attempt by drug ingestion Code(s): T50.902A - POISONING BY UNSP DRUG/MEDS/BIOL SUBST, SELF-HARM, INIT Status: Acute Qualifiers: Encounter type: subsequent encounter Qualified Code(s): T50.902D - Poisoning by unspecified drugs, medicaments and biological substances, intentional self-harm, subsequent encounter (3) Bipolar disorder Code(s): F31.9 - BIPOLAR DISORDER, UNSPECIFIED Status: Chronic Qualifiers: Active/Remission status: remission status unspecified Qualified Code(s): F31.9 - Bipolar disorder, unspecified (4) Depression Code(s): F32.9 - MAJOR DEPRESSIVE DISORDER, SINGLE EPISODE, UNSPECIFIED Status : Chronic Qualifiers: Depression Type: unspecified Qualified Code(s): F32.9 - Major depressive disorder, single episode, unspecified (5) Morbid obesity with BMI of 45.0-49.9, adult Code(s): E66.01 - MORBID (SEVERE) OBESITY DUE TO EXCESS CALORIES; Z68.42 - BODY MASS INDEX (BMI) 45.0-49.9, ADULT Status: Chronic (6) Schizophrenia Code(s): F20.9 - SCHIZOPHRENIA, UNSPECIFIED Status: Chronic Qualifiers: Schizophrenia type: schizophreniform disorder Qualified Code(s): F20.81 - Schizophreniform disorder - Plan cont current plan of care * medication reviewed as below * symptomatic treatment * await [facility] bed * medically stable with current treatment. Review of Systems - Review of Systems ENT: negative: Ear Pain, Ear Discharge, Nose Pain, Nose Discharge, Nose Congestion, Mouth Pain, Mouth Swelling, Throat Pain, Throat Swelling, Other Respiratory: negative: Cough, Dry, Shortness of Breath, Hemoptysis, SOB with Excertion, Pleuritic Pain, Sputum, Wheezing Cardiovascular: negative: Chest Pain, Palpitations, Orthopnea, Paroxysmal Noc. Dyspnea, Edema, Light Headedness, Other Gastrointestinal: negative: Nausea, Vomiting, Abdominal Pain, Diarrhea, Constipation, Melena, Hematochezia, Other Genitourinary: negative: Dysuria, Frequency, Incontinence, Hematuria, Retention , Other Musculoskeletal: negative: Neck Pain, Shoulder Pain, Arm Pain, Back Pain, Hand Pain, Leg Pain, Foot Pain, Other - Medications/Allergies Allergies/Adverse Reactions: Allergies Allergy/AdvReac Type Severity Reaction Status Date / Time topiramate [From Topamax] Allergy Intermediate Rash Verified 05/09/17 23:07 Medications: Current Medications Acetaminophen (Tylenol) 650 mg PO Q4H PRN PRN Reason: Headache/Fever or Pain Last Admin: 08/21/17 22:49 Dose: 650 mg Al Hydroxide/Mg Hydroxide (Maalox) 30 ml PO Q6H PRN PRN Reason: Heartburn or Indigestion Benztropine Mesylate (Cogentin) 1 mg PO DAILY [facility] Last Admin: 08/30/17 08:24 Dose: 1 mg Diphenhydramine HCl (Benadryl) 25 mg IVP PRN PRN PRN Reason: Agitation Enoxaparin Sodium (Lovenox) 40 mg SC 0900 [facility] Last Admin: 08/30/17 08:25 Dose: 40 mg Famotidine (Pepcid) 20 mg PO BID [facility] Last Admin: 08/30/17 08:25 Dose: 20 mg Haloperidol Lactate (Haldol) 5 mg IM PRN PRN PRN Reason: Agitation Last Admin: 08/29/17 20:57 Dose: 5 mg Hydralazine HCl (Apresoline) 10 mg SLOW IVP Q4H PRN PRN Reason: Systolic BP > 180 Levothyroxine Sodium (Synthroid) 25 mcg PO 0600 [facility] Last Admin: 08/30/17 06:00 Dose: 25 mcg Lorazepam (Ativan) 1 mg PO BID [facility] Last Admin: 08/30/17 08:25 Dose: 1 mg Lorazepam (Ativan) 1 mg SLOW IVP PRN PRN PRN Reason: Anxiety/Agitation Sodium Chloride (Flush - Normal Saline) 10 ml IVF Q12HR [facility] Last Admin: 08/30/17 08:25 Dose: Not Given Sodium Chloride (Flush - Normal Saline) 10 ml IVF PRN PRN PRN Reason: Saline Flush Venlafaxine HCl (Effexor Xr) 75 mg PO DAILY [facility] Last Admin: 08/30/17 08:24 Dose: 75 mg Ziprasidone (Geodon) 40 mg PO QA-[facility] Last Admin: 08/30/17 08:24 Dose: 40 mg
[2017-08-30] MEDS: Haloperidol Lactate 5 MG/ML VIAL IM PRN (21:20)
--- NOTE | 2017-08-31 05:50 | PDOC.PN ---
- Subjective Encounter Start Date: 08/31/17 Encounter Start Time: 05:49 Patient seen and examined. No new complaints. No overnight events - Objective Resuscitation Status: Resuscitation Status FULL:Full Resuscitation MAR Reviewed: Yes Vital Signs & Weight: Vital Signs (12 hours) Temp Pulse Resp BP Pulse Ox 08/30/17 21:00 98.0 F 82 16 123/71 95 08/30/17 19:47 97.8 F 58 L 16 Weight Admit Weight 307 lb 3.2 oz Weight 301 lb 6.4 oz I&O: 08/29/17 08/30/17 08/31/17 06:59 06:59 06:59 Intake Total 1000 480 960 Balance 1000 480 960 Result Diagrams: 08/24/17 05:15 08/24/17 05:15 Phys Exam - Physical Examination Constitutional: NAD HEENT: PERRLA, moist MMs, sclera anicteric Neck: no JVD, supple Respiratory: no wheezing, no rales, no rhonchi Cardiovascular: RRR, no significant murmur, no rub Gastrointestinal: soft, non-tender, no distention, positive bowel sounds morbid obesity Musculoskeletal: no edema, pulses present Neurological: non-focal, normal sensation, moves all 4 limbs Psychiatric: normal affect, A&O x 3 Skin: no rash, normal turgor Dx/Plan (1) Suicide attempt by drug ingestion Code(s): T50.902A - POISONING BY UNSP DRUG/MEDS/BIOL SUBST, SELF-HARM, INIT Status: Acute Qualifiers: Encounter type: subsequent encounter Qualified Code(s): T50.902D - Poisoning by unspecified drugs, medicaments and biological substances, intentional self-harm, subsequent encounter (2) Subclinical hypothyroidism Code(s): E03.9 - HYPOTHYROIDISM, UNSPECIFIED Status: Acute (3) Bipolar disorder Code(s): F31.9 - BIPOLAR DISORDER, UNSPECIFIED Status: Chronic Qualifiers: Active/Remission status: remission status unspecified Qualified Code(s): F31.9 - Bipolar disorder, unspecified (4) Depression Code(s): F32.9 - MAJOR DEPRESSIVE DISORDER, SINGLE EPISODE, UNSPECIFIED Status : Chronic Qualifiers: Depression Type: unspecified Qualified Code(s): F32.9 - Major depressive disorder, single episode, unspecified (5) Morbid obesity with BMI of 45.0-49.9, adult Code(s): E66.01 - MORBID (SEVERE) OBESITY DUE TO EXCESS CALORIES; Z68.42 - BODY MASS INDEX (BMI) 45.0-49.9, ADULT Status: Chronic (6) Schizophrenia Code(s): F20.9 - SCHIZOPHRENIA, UNSPECIFIED Status: Chronic Qualifiers: Schizophrenia type: schizophreniform disorder Qualified Code(s): F20.81 - Schizophreniform disorder - Plan cont current plan of care, 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 Review of Systems - Review of Systems ENT: negative: Ear Pain, Ear Discharge, Nose Pain, Nose Discharge, Nose Congestion, Mouth Pain, Mouth Swelling, Throat Pain, Throat Swelling, Other Respiratory: negative: Cough, Dry, Shortness of Breath, Hemoptysis, SOB with Excertion, Pleuritic Pain, Sputum, Wheezing Cardiovascular: negative: Chest Pain, Palpitations, Orthopnea, Paroxysmal Noc. Dyspnea, Edema, Light Headedness, Other Gastrointestinal: negative: Nausea, Vomiting, Abdominal Pain, Diarrhea, Constipation, Melena, Hematochezia, Other Genitourinary: negative: Dysuria, Frequency, Incontinence, Hematuria, Retention , Other Musculoskeletal: negative: Neck Pain, Shoulder Pain, Arm Pain, Back Pain, Hand Pain, Leg Pain, Foot Pain, Other - Medications/Allergies Allergies/Adverse Reactions: Allergies Allergy/AdvReac Type Severity Reaction Status Date / Time topiramate [From Topamax] Allergy Intermediate Rash Verified 05/09/17 23:07 Medications: Current Medications Acetaminophen (Tylenol) 650 mg PO Q4H PRN PRN Reason: Headache/Fever or Pain Last Admin: 08/21/17 22:49 Dose: 650 mg Al Hydroxide/Mg Hydroxide (Maalox) 30 ml PO Q6H PRN PRN Reason: Heartburn or Indigestion Benztropine Mesylate (Cogentin) 1 mg PO DAILY [facility] Last Admin: 08/30/17 08:24 Dose: 1 mg Diphenhydramine HCl (Benadryl) 25 mg IVP PRN PRN PRN Reason: Agitation Enoxaparin Sodium (Lovenox) 40 mg SC 0900 [facility] Last Admin: 08/30/17 08:25 Dose: 40 mg Famotidine (Pepcid) 20 mg PO BID [facility] Last Admin: 08/30/17 21:20 Dose: 20 mg Haloperidol Lactate (Haldol) 5 mg IM PRN PRN PRN Reason: Agitation Last Admin: 08/30/17 21:20 Dose: 5 mg Hydralazine HCl (Apresoline) 10 mg SLOW IVP Q4H PRN PRN Reason: Systolic BP > 180 Levothyroxine Sodium (Synthroid) 25 mcg PO 0600 [facility] Last Admin: 08/30/17 06:00 Dose: 25 mcg Lorazepam (Ativan) 1 mg PO BID [facility] Last Admin: 08/30/17 21:20 Dose: 1 mg Lorazepam (Ativan) 1 mg SLOW IVP PRN PRN PRN Reason: Anxiety/Agitation Sodium Chloride (Flush - Normal Saline) 10 ml IVF Q12HR [facility] Last Admin: 08/30/17 21:21 Dose: Not Given Sodium Chloride (Flush - Normal Saline) 10 ml IVF PRN PRN PRN Reason: Saline Flush Venlafaxine HCl (Effexor Xr) 75 mg PO DAILY [facility] Last Admin: 08/30/17 08:24 Dose: 75 mg Ziprasidone (Geodon) 40 mg PO QAM-[facility] Last Admin: 08/30/17 08:24 Dose: 40 mg
[2017-08-31] MEDS: Levothyroxine Sodium 25 MCG TAB PO SCH (06:23)
[2017-08-31] MEDS: Enoxaparin Sodium 40 MG/0.4 ML SYRINGE SC SCH (07:29)
[2017-08-31] MEDS: Venlafaxine HCl XR 75 MG CAP PO SCH (07:30)
[2017-08-31] MEDS: Lorazepam 1 MG TAB PO SCH ×2 (07:30→21:11)
[2017-08-31] MEDS: Famotidine 20 MG TAB PO SCH ×2 (08:10→21:12)
[2017-09-01] MEDS ORDERED: diphenhydrAMINE 50 MG/ML VIAL IM PRN (01:45)
[2017-09-01] MEDS ORDERED: Lorazepam 2 MG/ML VIAL IM PRN (01:45)
[2017-09-01] MEDS: Haloperidol Lactate 5 MG/ML VIAL IM PRN (01:55)
[2017-09-01] MEDS: Levothyroxine Sodium 25 MCG TAB PO SCH (06:08)
[2017-09-01] MEDS: Enoxaparin Sodium 40 MG/0.4 ML SYRINGE SC SCH (08:45)
[2017-09-01] MEDS: Famotidine 20 MG TAB PO SCH ×2 (08:46→20:48)
[2017-09-01] MEDS: Venlafaxine HCl XR 75 MG CAP PO SCH (08:46)
[2017-09-01] MEDS: Lorazepam 1 MG TAB PO SCH ×2 (08:46→20:48)
--- NOTE | 2017-09-01 16:25 | PDOC.PN ---
- Subjective Encounter Start Date: 09/01/17 Encounter Start Time: 16:24 Mr. Aguilar does not have any complaints. He was seen today in follow-up of suicidal ideation. - Objective Resuscitation Status: Resuscitation Status FULL:Full Resuscitation MAR Reviewed: Yes Vital Signs & Weight: Vital Signs (12 hours) Temp Pulse Resp BP Pulse Ox 09/01/17 08:44 98.1 F 90 16 123/68 98 09/01/17 08:00 98.1 F 90 16 99 Weight Admit Weight 307 lb 3.2 oz Weight 301 lb 6.4 oz I&O: 08/31/17 09/01/17 09/02/17 06:59 06:59 06:59 Intake Total 1440 1080 720 Output Total 2 Balance 1438 1080 720 Result Diagrams: 08/24/17 05:15 08/24/17 05:15 Phys Exam - Physical Examination HEENT: PERRLA Respiratory: no wheezing, no rales, no rhonchi, clear to auscultation bilateral Cardiovascular: RRR, no significant murmur Gastrointestinal: soft, non-tender, positive bowel sounds Musculoskeletal: no edema Dx/Plan (1) Suicide attempt by drug ingestion Code(s): T50.902A - POISONING BY UNSP DRUG/MEDS/BIOL SUBST, SELF-HARM, INIT Status: Acute Qualifiers: Encounter type: subsequent encounter Qualified Code(s): T50.902D - Poisoning by unspecified drugs, medicaments and biological substances, intentional self-harm, subsequent encounter (2) Bipolar disorder Code(s): F31.9 - BIPOLAR DISORDER, UNSPECIFIED Status: Chronic Qualifiers: Active/Remission status: remission status unspecified Qualified Code(s): F31.9 - Bipolar disorder, unspecified (3) Morbid obesity with BMI of 45.0-49.9, adult Code(s): E66.01 - MORBID (SEVERE) OBESITY DUE TO EXCESS CALORIES; Z68.42 - BODY MASS INDEX (BMI) 45.0-49.9, ADULT Status: Chronic (4) Schizophrenia Code(s): F20.9 - SCHIZOPHRENIA, UNSPECIFIED Status: Chronic Qualifiers: Schizophrenia type: schizophreniform disorder Qualified Code(s): F20.81 - Schizophreniform disorder - Plan * Suicidal ideation- awaiting placement at [facility] * Bipolar disorder- stable.
[2017-09-02] MEDS: Venlafaxine HCl XR 75 MG CAP PO SCH (08:58)
[2017-09-02] MEDS: Levothyroxine Sodium 25 MCG TAB PO SCH (08:58)
[2017-09-02] MEDS: Famotidine 20 MG TAB PO SCH ×2 (08:58→21:23)
[2017-09-02] MEDS: Lorazepam 1 MG TAB PO SCH ×2 (09:00→21:23)
[2017-09-02] MEDS: Enoxaparin Sodium 40 MG/0.4 ML SYRINGE SC SCH (09:00)
[2017-09-02] MEDS ORDERED: diphenhydrAMINE 12.5 MG/5 ML UDCUP PO PRN (09:58)
--- NOTE | 2017-09-02 10:00 | PDOC.PN ---
- Subjective Encounter Start Date: 09/02/17 Encounter Start Time: 09:59 Mr. Aguilar was seen today in follow-up for suicidal ideation. He is complaining of trouble sleeping. He also would prefer his medications to be given in IM form. - Objective Resuscitation Status: Resuscitation Status FULL:Full Resuscitation MAR Reviewed: Yes Vital Signs & Weight: Vital Signs (12 hours) Temp Pulse Resp BP Pulse Ox 09/02/17 08:00 98.0 F 86 16 126/74 96 Weight Admit Weight 307 lb 3.2 oz Weight 301 lb 6.4 oz I&O: 09/01/17 09/02/17 09/03/17 06:59 06:59 06:59 Intake Total 1080 1580 Balance 1080 1580 Result Diagrams: 08/24/17 05:15 08/24/17 05:15 Phys Exam - Physical Examination HEENT: PERRLA Respiratory: no wheezing, no rhonchi, clear to auscultation bilateral Cardiovascular: RRR, no significant murmur, no rub Gastrointestinal: soft, non-tender, positive bowel sounds Musculoskeletal: no edema Dx/Plan (1) Insomnia Code(s): G47.00 - INSOMNIA, UNSPECIFIED Status: Acute (2) Suicide attempt by drug ingestion Code(s): T50.902A - POISONING BY UNSP DRUG/MEDS/BIOL SUBST, SELF-HARM, INIT Status: Acute Qualifiers: Encounter type: subsequent encounter Qualified Code(s): T50.902D - Poisoning by unspecified drugs, medicaments and biological substances, intentional self-harm, subsequent encounter (3) Bipolar disorder Code(s): F31.9 - BIPOLAR DISORDER, UNSPECIFIED Status: Chronic Qualifiers: Active/Remission status: remission status unspecified Qualified Code(s): F31.9 - Bipolar disorder, unspecified (4) Morbid obesity with BMI of 45.0-49.9, adult Code(s): E66.01 - MORBID (SEVERE) OBESITY DUE TO EXCESS CALORIES; Z68.42 - BODY MASS INDEX (BMI) 45.0-49.9, ADULT Status: Chronic (5) Schizophrenia Code(s): F20.9 - SCHIZOPHRENIA, UNSPECIFIED Status: Chronic Qualifiers: Schizophrenia type: schizophreniform disorder Qualified Code(s): F20.81 - Schizophreniform disorder - Plan * Insomnia- he has used benadryl in the past- will give a trial while in the hospital * Bipolar- stable * I have explained to him that we will try to avoid using injectable medications * Awaiting transfer to [place].
[2017-09-03] MEDS: Levothyroxine Sodium 25 MCG TAB PO SCH (06:50)
[2017-09-03] MEDS: Venlafaxine HCl XR 75 MG CAP PO SCH (09:03)
[2017-09-03] MEDS: Famotidine 20 MG TAB PO SCH ×2 (09:03→21:23)
[2017-09-03] MEDS: Lorazepam 1 MG TAB PO SCH ×2 (09:04→21:24)
[2017-09-03] MEDS: Enoxaparin Sodium 40 MG/0.4 ML SYRINGE SC SCH (09:05)
[2017-09-03] MEDS ORDERED: Ziprasidone 20 MG VIAL IM PRN (15:31)
[2017-09-03] MEDS ORDERED: Melatonin 3 MG TAB PO PRN (15:32)
--- NOTE | 2017-09-03 15:35 | PDOC.PN ---
- Subjective Encounter Start Date: 09/03/17 Encounter Start Time: 15:33 Mr. Aguilar is complaining of feeling agitated on the inside. He says if he doesn't get anything for his anxiety he is going to start banging his head against the wall. He also says he was not able to sleep well last night. He says the benadryl did not help. He has had this problem prior to being admitted to the hospital, but he can not remember the names or doses of the medications that he took in the past. - Objective Resuscitation Status: Resuscitation Status FULL:Full Resuscitation MAR Reviewed: Yes Vital Signs & Weight: Vital Signs (12 hours) Temp Pulse Resp BP Pulse Ox 09/03/17 08:56 98.1 F 86 16 128/62 95 09/03/17 08:00 98.1 F 86 16 98 Weight Admit Weight 307 lb 3.2 oz Weight 301 lb 6.4 oz I&O: 09/02/17 09/03/17 09/04/17 06:59 06:59 06:59 Intake Total 1580 Balance 1580 Result Diagrams: 08/24/17 05:15 08/24/17 05:15 Phys Exam - Physical Examination HEENT: PERRLA Respiratory: no wheezing, no rales, no rhonchi, clear to auscultation bilateral Cardiovascular: RRR, no significant murmur Gastrointestinal: soft, non-tender, positive bowel sounds Musculoskeletal: no edema Dx/Plan (1) Insomnia Code(s): G47.00 - INSOMNIA, UNSPECIFIED Status: Acute (2) Suicide attempt by drug ingestion Code(s): T50.902A - POISONING BY UNSP DRUG/MEDS/BIOL SUBST, SELF-HARM, INIT Status: Acute Qualifiers: Encounter type: subsequent encounter Qualified Code(s): T50.902D - Poisoning by unspecified drugs, medicaments and biological substances, intentional self-harm, subsequent encounter (3) Bipolar disorder Code(s): F31.9 - BIPOLAR DISORDER, UNSPECIFIED Status: Chronic Qualifiers: Active/Remission status: remission status unspecified Qualified Code(s): F31.9 - Bipolar disorder, unspecified (4) Morbid obesity with BMI of 45.0-49.9, adult Code(s): E66.01 - MORBID (SEVERE) OBESITY DUE TO EXCESS CALORIES; Z68.42 - BODY MASS INDEX (BMI) 45.0-49.9, ADULT Status: Chronic (5) Schizophrenia Code(s): F20.9 - SCHIZOPHRENIA, UNSPECIFIED Status: Chronic Qualifiers: Schizophrenia type: schizophreniform disorder Qualified Code(s): F20.81 - Schizophreniform disorder - Plan * Insomnia- this is chronic, and likely a part of the symptom complex of his Bipolar disorder- will add Ativan as needed, but would refrain from altering and mixing too many psychiatric medications as to avoid danger side-effects. I have informed the staff yesterday that I am concerned that his sitter is prompting him to be more concerned about his symptoms, and seems to at least to some extent instigate or magnify his symptoms. (Today he has the same sitter as yesterday) For example when I go into the room, and ask him about his symptoms he says he is feeling fine, this is when the sitter will promptly jump in and say he hasn't slept well, the benadryl is not working, and he is still agitated. I have asked her to leave the room when I visit with him, now, and in the future, however due to availability she is with him the majority of the day shift. (In addition, it was noted that on 09/01/2017 when I visited with him, there was a different sitter, and the encounter was quit different- no reports of agitation or insomnia.) * Again ativan has been added PRN for Anxiety, and will add Geodon for severe cases as well * Still awaiting a bed at [facility]
[2017-09-03] MEDS: Lorazepam 0.5 MG TAB PO PRN (15:41)
[2017-09-04] MEDS: Levothyroxine Sodium 25 MCG TAB PO SCH (06:14)
[2017-09-04] MEDS: Lorazepam 1 MG TAB PO SCH ×2 (08:24→20:36)
[2017-09-04] MEDS: Famotidine 20 MG TAB PO SCH ×2 (08:24→20:36)
[2017-09-04] MEDS: Venlafaxine HCl XR 75 MG CAP PO SCH (08:24)
[2017-09-04] MEDS: Enoxaparin Sodium 40 MG/0.4 ML SYRINGE SC SCH (08:26)
[2017-09-04] MEDS: Lorazepam 0.5 MG TAB PO PRN (13:42)
--- NOTE | 2017-09-04 18:08 | PDOC.PN ---
- Subjective Encounter Start Date: 09/04/17 Encounter Start Time: 18:06 Mr. Aguilar was seen today in follow-up. He notes some numbness in the 4th and 5th fingers of both hands. He asks if this could be an "Ulnar nerve ". He says this has been a problem every since his 4th suicide attempt. He denies any weakness in them. He also continue to feel anxious, and is having trouble sleeping. - Objective Resuscitation Status: Resuscitation Status FULL:Full Resuscitation MAR Reviewed: Yes Vital Signs & Weight: Vital Signs (12 hours) Temp Pulse Resp BP Pulse Ox 09/04/17 08:00 98.4 F 67 18 130/62 97 Weight Admit Weight 307 lb 3.2 oz Weight 301 lb 6.4 oz I&O: 09/03/17 09/04/17 09/05/17 06:59 06:59 06:59 Intake Total 1720 Balance 1720 Result Diagrams: 08/24/17 05:15 08/24/17 05:15 Phys Exam - Physical Examination HEENT: PERRLA Respiratory: no wheezing, no rales, no rhonchi, clear to auscultation bilateral Cardiovascular: RRR, no significant murmur, no rub Gastrointestinal: soft, non-tender, positive bowel sounds Musculoskeletal: no edema 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 and no significant upper extremity weakness Dx/Plan (1) Insomnia Code(s): G47.00 - INSOMNIA, UNSPECIFIED Status: Acute (2) Suicide attempt by drug ingestion Code(s): T50.902A - POISONING BY UNSP DRUG/MEDS/BIOL SUBST, SELF-HARM, INIT Status: Acute Qualifiers: Encounter type: subsequent encounter Qualified Code(s): T50.902D - Poisoning by unspecified drugs, medicaments and biological substances, intentional self-harm, subsequent encounter (3) Bipolar disorder Code(s): F31.9 - BIPOLAR DISORDER, UNSPECIFIED Status: Chronic Qualifiers: Active/Remission status: remission status unspecified Qualified Code(s): F31.9 - Bipolar disorder, unspecified (4) Morbid obesity with BMI of 45.0-49.9, adult Code(s): E66.01 - MORBID (SEVERE) OBESITY DUE TO EXCESS CALORIES; Z68.42 - BODY MASS INDEX (BMI) 45.0-49.9, ADULT Status: Chronic (5) Schizophrenia Code(s): F20.9 - SCHIZOPHRENIA, UNSPECIFIED Status: Chronic Qualifiers: Schizophrenia type: schizophreniform disorder Qualified Code(s): F20.81 - Schizophreniform disorder - Plan * Insomnia- will continue to monitor, He does not appear to have significant daytime sleepiness * Ulnar neuropathy- mild, will monitor- could place him in a splint, however this may pose a suicide risk- will observe for now, and it should be self limiting over time * Await inpatient Psychiatric Hospital Bed.
[2017-09-05] MEDS: Levothyroxine Sodium 25 MCG TAB PO SCH (05:38)
[2017-09-05] MEDS: Venlafaxine HCl XR 75 MG CAP PO SCH (10:29)
[2017-09-05] MEDS: Lorazepam 1 MG TAB PO SCH ×2 (10:29→20:02)
[2017-09-05] MEDS: Famotidine 20 MG TAB PO SCH ×2 (10:29→20:02)
[2017-09-05] MEDS: Enoxaparin Sodium 40 MG/0.4 ML SYRINGE SC SCH (10:30)
--- NOTE | 2017-09-05 10:45 | PDOC.PN ---
- Subjective Encounter Start Date: 09/05/17 Encounter Start Time: 10:44 Mr. Aguilar was seen today in follow-up. He is resting in bed quietly. He still complains of trouble sleeping. He says that he now believes he remembers the name of the medication that helped him sleep, and it is Trazodone, and he believes it was 150mg. - Objective Resuscitation Status: Resuscitation Status FULL:Full Resuscitation MAR Reviewed: Yes Vital Signs & Weight: Vital Signs (12 hours) Temp Pulse Resp BP Pulse Ox 09/05/17 08:00 98 F 86 16 120/79 98 Weight Admit Weight 307 lb 3.2 oz Weight 301 lb 6.4 oz I&O: 09/04/17 09/05/17 09/06/17 06:59 06:59 06:59 Intake Total 1720 1000 Balance 1720 1000 Result Diagrams: 08/24/17 05:15 08/24/17 05:15 Phys Exam - Physical Examination HEENT: PERRLA Respiratory: no wheezing, no rales Cardiovascular: RRR, no significant murmur Gastrointestinal: soft, non-tender, positive bowel sounds Musculoskeletal: no edema Dx/Plan (1) Insomnia Code(s): G47.00 - INSOMNIA, UNSPECIFIED Status: Acute (2) Suicide attempt by drug ingestion Code(s): T50.902A - POISONING BY UNSP DRUG/MEDS/BIOL SUBST, SELF-HARM, INIT Status: Acute Qualifiers: Encounter type: subsequent encounter Qualified Code(s): T50.902D - Poisoning by unspecified drugs, medicaments and biological substances, intentional self-harm, subsequent encounter (3) Bipolar disorder Code(s): F31.9 - BIPOLAR DISORDER, UNSPECIFIED Status: Chronic Qualifiers: Active/Remission status: remission status unspecified Qualified Code(s): F31.9 - Bipolar disorder, unspecified (4) Morbid obesity with BMI of 45.0-49.9, adult Code(s): E66.01 - MORBID (SEVERE) OBESITY DUE TO EXCESS CALORIES; Z68.42 - BODY MASS INDEX (BMI) 45.0-49.9, ADULT Status: Chronic (5) Schizophrenia Code(s): F20.9 - SCHIZOPHRENIA, UNSPECIFIED Status: Chronic Qualifiers: Schizophrenia type: schizophreniform disorder Qualified Code(s): F20.81 - Schizophreniform disorder - Plan * Insomnia- will give a trial of Trazodone. * Suicidal ideation- patient continues to await an inpatient Psychiatric Bed
[2017-09-05] MEDS ORDERED: traZODone HCl 50 MG TAB PO PRN (10:46)
[2017-09-06] MEDS: Levothyroxine Sodium 25 MCG TAB PO SCH (04:58)
[2017-09-06] MEDS: Lorazepam 1 MG TAB PO SCH (08:27)
[2017-09-06] MEDS: Famotidine 20 MG TAB PO SCH (08:27)
[2017-09-06] MEDS: Venlafaxine HCl XR 75 MG CAP PO SCH (08:27)
[2017-09-06] MEDS: Enoxaparin Sodium 40 MG/0.4 ML SYRINGE SC SCH (08:28)
[2017-09-06 08:34] VITALS: BP 100/55
[2017-09-06 08:40] VITALS: TEMP 98.9
--- NOTE | 2017-09-06 13:40 | PDOC.PN ---
- Subjective Encounter Start Date: 09/06/17 Encounter Start Time: 07:05 -: old records requested/rev Patient seen and examined. No new complaints. No overnight events - Objective Resuscitation Status: Resuscitation Status FULL:Full Resuscitation MAR Reviewed: Yes Vital Signs & Weight: Vital Signs (12 hours) Temp Pulse Resp BP Pulse Ox 09/06/17 08:00 98.9 F 85 20 09/06/17 07:33 97.6 F 85 16 100/55 L 96 Weight Admit Weight 307 lb 3.2 oz Weight 301 lb 6.4 oz I&O: 09/05/17 09/06/17 09/07/17 06:59 06:59 06:59 Intake Total 1000 Balance 1000 Result Diagrams: 08/24/17 05:15 08/24/17 05:15 Phys Exam - Physical Examination Constitutional: NAD HEENT: PERRLA, moist MMs, sclera anicteric Neck: no JVD, supple Respiratory: no wheezing, no rales, no rhonchi Cardiovascular: RRR, no significant murmur, no rub Gastrointestinal: soft, non-tender, no distention Musculoskeletal: no edema, pulses present Neurological: non-focal, normal sensation Psychiatric: normal affect, A&O x 3 Skin: no rash, normal turgor Dx/Plan (1) Suicide attempt by drug ingestion Code(s): T50.902A - POISONING BY UNSP DRUG/MEDS/BIOL SUBST, SELF-HARM, INIT Status: Acute Qualifiers: Encounter type: subsequent encounter Qualified Code(s): T50.902D - Poisoning by unspecified drugs, medicaments and biological substances, intentional self-harm, subsequent encounter (2) Subclinical hypothyroidism Code(s): E03.9 - HYPOTHYROIDISM, UNSPECIFIED Status: Acute (3) Bipolar disorder Code(s): F31.9 - BIPOLAR DISORDER, UNSPECIFIED Status: Chronic Qualifiers: Active/Remission status: remission status unspecified Qualified Code(s): F31.9 - Bipolar disorder, unspecified (4) Depression Code(s): F32.9 - MAJOR DEPRESSIVE DISORDER, SINGLE EPISODE, UNSPECIFIED Status : Chronic Qualifiers: Depression Type: unspecified Qualified Code(s): F32.9 - Major depressive disorder, single episode, unspecified (5) Morbid obesity with BMI of 45.0-49.9, adult Code(s): E66.01 - MORBID (SEVERE) OBESITY DUE TO EXCESS CALORIES; Z68.42 - BODY MASS INDEX (BMI) 45.0-49.9, ADULT Status: Chronic (6) Schizophrenia Code(s): F20.9 - SCHIZOPHRENIA, UNSPECIFIED Status: Chronic Qualifiers: Schizophrenia type: schizophreniform disorder Qualified Code(s): F20.81 - Schizophreniform disorder - Plan cont current plan of care * stable for discharge * see discharge summery * medication reviewed as below * symptomatic treatment. Review of Systems - Review of Systems ENT: negative: Ear Pain, Ear Discharge, Nose Pain, Nose Discharge, Nose Congestion, Mouth Pain, Mouth Swelling, Throat Pain, Throat Swelling, Other Respiratory: negative: Cough, Dry, Shortness of Breath, Hemoptysis, SOB with Excertion, Pleuritic Pain, Sputum, Wheezing Cardiovascular: negative: Chest Pain, Palpitations, Orthopnea, Paroxysmal Noc. Dyspnea, Edema, Light Headedness, Other Gastrointestinal: negative: Nausea, Vomiting, Abdominal Pain, Diarrhea, Constipation, Melena, Hematochezia, Other Genitourinary: negative: Dysuria, Frequency, Incontinence, Hematuria, Retention , Other Musculoskeletal: negative: Neck Pain, Shoulder Pain, Arm Pain, Back Pain, Hand Pain, Leg Pain, Foot Pain, Other - Medications/Allergies Allergies/Adverse Reactions: Allergies Allergy/AdvReac Type Severity Reaction Status Date / Time topiramate [From Topamax] Allergy Intermediate Rash Verified 05/09/17 23:07
--- NOTE | 2017-09-06 14:28 | DIS ---
DATE OF ADMISSION: 08/17/2017 DATE OF DISCHARGE: 09/06/2017 PRIMARY CARE PHYSICIAN: Aline call admission. DISCHARGE DISPOSITION: [facility]. PRIMARY DISCHARGE DIAGNOSES: 1. Suicide attempt by drug ingestion. 2. Subclinical hypothyroidism. SECONDARY DISCHARGE DIAGNOSES: Schizophrenia, morbid obesity with body mass index 47, depression, bi polar disorder, and chronic insomnia. PRIMARY PROCEDURE/OPERATION: None. RADIOLOGICAL INVESTIGATION: CT brain and CT cervical spine, both were negative. SIGNIFICANT LABORATORY DATA: WBC 8.5, hemoglobin 14.1, platelet 258. Sodium 141, potassium 4.2, BUN 15, creatinine 0.97, and calcium 9.2. TSH 5.33. LFTs normal. Urinalysis; WBC 11-20. Urine drug s creen positive for tricyclic. Serum drug screen negative. DISCHARGE MEDICATIONS: Cogentin 1 mg p.o. daily, gabapentin 200 mg p.o. b.i.d., Synthroid 25 mcg p.o . daily, Ativan 1 mg p.o. b.i.d., Effexor XR 75 mg p.o. daily, and Geodon 40 mg p.o. daily. CONTRAINDICATIONS: None. CODE STATUS: FULL CODE. INPATIENT SHOE HANDLER: The patient was admitted initially in [facility] and that is why Dr. Slade saw this patient. TEST RESULTS PENDING ON DISCHARGE: None. ALLERGIES: TOPIRAMATE. DISCHARGE PLAN: Post hospital, patient is discharged to [facility]. Subsequently, patient will follow up with primary care physician and primary psychiatrist. HOSPITAL COURSE: A 22-year-old male who has prolonged hospital course, he was mainly admitted by Dr. Geovanni Stovall on 08/17/2017. The patient was found unresponsive. Patient subsequently found that he was having suicidal attempt with drug ingestion. Patient did not provide that history on admission. Initially CT brain and CT cervical spine was negative. Patient was admitted in the [facility]. Dr. Doretha staples saw this patient. Subsequently patient was transferred to medical floor. The patient was not safe for discharge to home and that is why we consulted [facility]. [facility] agreed that this patient will need in patient psychiatric care. We were waiting for [facility] for many, many days, but he did not able to ge t bed at [facility]. Finally, we did call [facility] again and [facility] accepted this pat ient. I spoke with the [facility] psychiatrist about patient's further details. Today, priscilla bautista has approval to go there. The patient is seen and examined at bedside today. Paperwork for discharge done. Discharge medicati on reconciliation done. Total time spent on the day of discharge is 31 minutes.
== END 2017-09-06 12:41 | DRG 918 ==
LOC: ERS 14:22 → IMCU/EMU 23:21 → 2NO 08-18 12:02 → T4-B 08-19 21:29
PROVIDERS: ADMIT Family Medicine; ATTEND Family Medicine
DX: T43.592A Poisoning by other antipsychotics and neuroleptics, intentional self-harm, initial encounter (principal); F20.81 Schizophreniform disorder; Z68.42 Body mass index [BMI] 45.0-49.9, adult; F32.9 Major depressive disorder, single episode, unspecified; F31.9 Bipolar disorder, unspecified; Z91.5 Personal history of self-harm; Z88.8 Allergy status to other drugs, medicaments and biological substances; E02 Subclinical iodine-deficiency hypothyroidism; E66.01 Morbid (severe) obesity due to excess calories; T39.312A Poisoning by propionic acid derivatives, intentional self-harm, initial encounter; G47.00 Insomnia, unspecified; G56.23 Lesion of ulnar nerve, bilateral upper limbs; F41.9 Anxiety disorder, unspecified; T43.222A Poisoning by selective serotonin reuptake inhibitors, intentional self-harm, initial encounter
CPT/HCPCS: 36415; 51701; 70450; 72125; 80048; 80053; 80306; 80307; 81003; 81015; 82553; 84439; 84443; 84481; 84484; 85025; 93005; 96360; 96361; A4216; J1200; J1630; J1650; J2060; J3486

== ENCOUNTER 2017-09-19 18:07 | Emergency (ER) | payer SELFPAY ==
[2017-09-19 18:56] LABS: Bilirubin Negative (Negative); Blood, Urine Negative (Negative); Glucose, Urine (Dipstick) Negative (Negative); Ketone, Urine Negative (Negative); Nitrite Negative (Negative); Protein, Urine (Dipstick) 30 mg/dL (Neg-Trace); Urobilinogen 0.2 mg/dL (0.2-1.0)
[2017-09-19 19:01] LABS: Bacteria/HPF None Seen HPF (None Seen); Hyaline Casts/LPF 4-6 HYALINE CAST LPF (0-3 Hyaline); RBC/HPF 0-3 HPF (0-3); Squamous Epithelial 0-3 HPF (0-3); WBC/HPF 0-3 HPF (0-3)
[2017-09-19 19:02] LABS: #Basophils 0.1 thou/uL (0.0-0.2); #Eosinphils 0.3 thou/uL (0.0-0.7); #Lymphocytes 2.3 thou/uL (1.20-3.40); #Monocytes 0.7 thou/uL (0.11-0.59); #Neutrophils 7.9 thou/uL (1.40-6.50); %Basophils 0.5 % (0.0-1.0); %Eosinophils 2.9 % (0.0-10.0); %Lymphocytes 20.5 % (21.0-51.0); %Monocytes 6.1 % (0.0-10.0); Hematocrit 45.4 % (42.0-52.0); Mean Platelet Volume 7.4 fL (7.4-10.4); Red Blood Cell (RBC) Count 5.24 mill/uL (4.70-6.10); White Blood Cell (WBC) Count 11.3 thou/uL (4.8-10.8)
[2017-09-19 19:08] LABS: Amphetamine Not Detected (NotDetected); Methadone Not Detected (NotDetected); Methamphetamine Not Detected (NotDetected)
[2017-09-19 19:23] LABS: Acetaminophen Less than 6.0 mcg/mL (10.0-30.0); CK (CPK) 275 U/L (30-200); Salicylate Less than 8.0 mg/dL (15.0-30.0)
[2017-09-19 19:44] LABS: ALT (SGPT) 24 U/L (8-55); AST (SGOT) 23 U/L (5-34); Alkaline Phosphatase 36 U/L (40-150); Anion Gap 11 mmol/L (10-20); BUN (Urea Nitrogen) 15 mg/dL (8.9-20.6); Bilirubin, Total 0.5 mg/dL (0.2-1.2); Calc. Creatinine Clearance 0 mL/min (70-130); Calcium 9.6 mg/dL (7.8-10.44); Carbon Dioxide 29 mmol/L (22-29); Chloride 104 mmol/L (98-107); Estimated GFR-MDRD Greater than 90; Globulin 2.8 g/dL (2.4-3.5); Protein, Total 7.3 g/dL (6.0-8.3)
[2017-09-19] MEDS ORDERED: Ibuprofen 200 MG TAB ONE (19:47)
[2017-09-19] MEDS ORDERED: traZODone HCl 50 MG TAB ONE (21:41)
[2017-09-20] MEDS ORDERED: Bupropion 150 MG XL TAB PO SCH (16:15)
[2017-09-20] MEDS ORDERED: traZODone HCl 50 MG TAB PO PRN (23:02)
[2017-09-21] MEDS ORDERED: Bupropion 150 MG XL TAB PO SCH (18:00)
[2017-09-22] MEDS ORDERED: traZODone HCl 50 MG TAB ONE ×2 (01:28→20:57)
[2017-09-22] MEDS ORDERED: Bupropion 150 MG XL TAB PO SCH ×2 (07:30→17:45)
[2017-09-22] MEDS ORDERED: hydrOXYzine Pamoate 25 mg Capsule ONE (20:57)
[2017-09-23] MEDS ORDERED: Bupropion 150 MG XL TAB PO SCH (22:00)
[2017-09-24] MEDS ORDERED: Bupropion 150 MG XL TAB PO SCH (07:00)
[2017-09-25] MEDS ORDERED: diphenhydrAMINE 25 MG CAP ONE (04:41)
[2017-09-25] MEDS ORDERED: Bupropion 150 MG XL TAB PO SCH (17:00)
[2017-09-27] MEDS ORDERED: traZODone HCl 50 MG TAB ONE ×2 (22:54→23:01)
[2017-09-27] MEDS ORDERED: diphenhydrAMINE 25 MG CAP ONE (22:54)
[2017-09-29] MEDS ORDERED: Levothyroxine Sodium 25 MCG TAB PO SCH (06:00)
== END 2017-09-29 15:44 | disposition home or self-care (01) ==
LOC: ERS 18:07
DX: R45.851 Suicidal ideations (principal); F31.9 Bipolar disorder, unspecified; F20.9 Schizophrenia, unspecified; Z79.899 Other long term (current) drug therapy
CPT/HCPCS: 36415; 80053; 80306; 80307; 81003; 81015; 82550; 84443; 85025; 96372; Q0177

== ENCOUNTER 2017-10-25 20:35 | Observation (INO) | payer MEDICAID, SELFPAY ==
[2017-10-25 21:29] LABS: Bilirubin Negative (Negative); Blood, Urine Negative (Negative); Clarity CLEAR (Clear); Glucose, Urine (Dipstick) Negative (Negative); Leukocyte Negative (Negative); Nitrite Negative (Negative); Protein, Urine (Dipstick) Negative (Neg-Trace); Specific Gravity, Urine 1.036 (1.002-1.036); Urobilinogen 0.2 mg/dL (0.2-1.0); pH, Urine 5.5 (5.0-9.0)
[2017-10-25 21:37] LABS: Amphetamine Not Detected (NotDetected); Barbiturates Screen Not Detected (NotDetected); Benzodiazepine Screen Not Detected (NotDetected); Cocaine Metabolite Screen Not Detected (NotDetected); Medtox Control Line Valid? VALID (VALID); Medtox Reader # READER 1; Methadone Not Detected (NotDetected); Methamphetamine Not Detected (NotDetected); Opiate Screen Not Detected (NotDetected); Oxycodone Screen Not Detected (NotDetected); Phencyclidine (PCP) Not Detected (NotDetected); THC/Cannabinoid Screen Not Detected (NotDetected); Tricyclic Screen Not Detected (NotDetected)
[2017-10-25 22:27] LABS: #Basophils 0.1 thou/uL (0.0-0.2); #Eosinphils 0.2 thou/uL (0.0-0.7); #Lymphocytes 2.7 thou/uL (1.20-3.40); #Monocytes 1.1 thou/uL (0.11-0.59); #Neutrophils 7.3 thou/uL (1.40-6.50); %Basophils 0.5 % (0.0-1.0); %Eosinophils 1.5 % (0.0-10.0); %Lymphocytes 24.2 % (21.0-51.0); %Monocytes 9.3 % (0.0-10.0); %Neutrophils 64.4 % (42.0-75.0); Hemoglobin 16.2 g/dL (14.0-18.0); Mean Corpuscular HGB CONC 34.1 g/dL (32.0-36.0); Mean Corpuscular Hemoglobin 29.2 pg (27.0-31.0); Mean Corpuscular Volume 85.7 fl (80.0-94.0); Platelet Count 272 thou/uL (130-400); RBC Distribution Width 12.1 % (11.5-14.5); Red Blood Cell (RBC) Count 5.56 mill/uL (4.70-6.10); White Blood Cell (WBC) Count 11.3 thou/uL (4.8-10.8)
[2017-10-25 22:49] LABS: Acetaminophen Less than 6.0 mcg/mL (10.0-30.0); Alcohol Less than 10 mg/dL (Less than 10); CK (CPK) 132 U/L (30-200); Salicylate Less than 8.0 mg/dL (15.0-30.0)
[2017-10-25 22:50] LABS: ALT (SGPT) 27 U/L (8-55); AST (SGOT) 23 U/L (5-34); Albumin 4.1 g/dL (3.5-5.0); Alcohol Less than 10 mg/dL (Less than 10); Alkaline Phosphatase 35 U/L (40-150); Anion Gap 15 mmol/L (10-20); BUN (Urea Nitrogen) 14 mg/dL (8.9-20.6); Bilirubin, Total 0.4 mg/dL (0.2-1.2); Calc. Creatinine Clearance 0 mL/min (70-130); Calcium 9.6 mg/dL (7.8-10.44); Carbon Dioxide 24 mmol/L (22-29); Chloride 107 mmol/L (98-107); Estimated GFR-MDRD Greater than 90; Globulin 2.2 g/dL (2.4-3.5); Glucose 82 mg/dL (70-105); Potassium 4.2 mmol/L (3.5-5.1); Protein, Total 6.3 g/dL (6.0-8.3); Sodium 142 mmol/L (136-145)
[2017-10-26] MEDS: Sodium Chloride 0.9% 1,000 ML IV SCH ×2 (03:30→13:44)
[2017-10-26 05:25] LABS: #Basophils 0.1 thou/uL (0.0-0.2); #Eosinphils 0.3 thou/uL (0.0-0.7); #Lymphocytes 3.2 thou/uL (1.20-3.40); #Monocytes 1.1 thou/uL (0.11-0.59); #Neutrophils 5.7 thou/uL (1.40-6.50); %Basophils 0.9 % (0.0-1.0); %Eosinophils 3.1 % (0.0-10.0); %Monocytes 10.6 % (0.0-10.0); %Neutrophils 54.4 % (42.0-75.0); Hemoglobin 15.6 g/dL (14.0-18.0); Mean Corpuscular HGB CONC 34.4 g/dL (32.0-36.0); Mean Corpuscular Hemoglobin 29.9 pg (27.0-31.0); Mean Corpuscular Volume 86.8 fl (80.0-94.0); Mean Platelet Volume 7.3 fL (7.4-10.4); Platelet Count 243 thou/uL (130-400); RBC Distribution Width 12.1 % (11.5-14.5); Red Blood Cell (RBC) Count 5.23 mill/uL (4.70-6.10); White Blood Cell (WBC) Count 10.4 thou/uL (4.8-10.8)
[2017-10-26 05:31] LABS: Anion Gap 11 mmol/L (10-20); BUN (Urea Nitrogen) 14 mg/dL (8.9-20.6); Calc. Creatinine Clearance 0 mL/min (70-130); Calcium 9.1 mg/dL (7.8-10.44); Carbon Dioxide 27 mmol/L (22-29); Chloride 106 mmol/L (98-107); Estimated GFR-MDRD 90; Glucose 89 mg/dL (70-105); Potassium 3.8 mmol/L (3.5-5.1); Sodium 140 mmol/L (136-145)
[2017-10-26] MEDS ORDERED: Levothyroxine Sodium 50 MCG TAB PO SCH (06:00)
--- NOTE | 2017-10-26 06:35 | HP-2 ---
DATE OF ADMISSION: 10/26/2017 DATE OF SERVICE: 10/26/2017 CODE STATUS: FULL. PRIMARY CARE PHYSICIAN: Aline kenny. ATTENDING: Dr. Colin Kovacs RESIDENT: PGY-1 - Dr. Savanna Ray HISTORIAN: Patient. SPECIALISTS: [facility]. CHIEF COMPLAINT: Intentional overdose. HISTORY OF PRESENT ILLNESS: A 22-year-old male with a past medical history of bipolar disorder, schi zophrenia, and borderline personality disorder who presents via EMS after an intentional overdose on Wellbutrin (150 mg x4), Geodon 40 mg x5, and Benadryl 50 mg. The patient states that he was tired of the voices in his head and wanted to make them stop. He states he took the medication yesterday at 7:00 p.m. He states that he is not having auditory hallucinations, but that his subconscious told hi m to take the medications and his subconscious also told him to stop taking his medications that he i s supposed to take daily for his psychiatric conditions. He also says that he stopped taking the med ications that he is supposed to take daily because he felt like he was not himself. He also states i n the past he has thought about hanging himself to stop his subconscious thoughts. When asked in the ER if he still had suicidal ideation, he said that he did, but he also says that when he has these t houghts he cannot actually make himself completely go through with it. PAST MEDICAL HISTORY: Hypothyroidism, bipolar disorder, schizophrenia, borderline personality disord er, a recent inpatient psych admission in 03/2017, history of suicidal ideation and suicide attempts. PAST SURGICAL HISTORY: None. ALLERGIES: TOPAMAX. MEDICATIONS: Wellbutrin, Cogentin, Geodon. FAMILY HISTORY: Noncontributory. SOCIAL HISTORY: Denies tobacco use. Drinks occasionally. Denies drug use. Denies. parental abuse , states that he lives with his father, feels safe at home. States that his mental illness started a t age 14 after his mom . REVIEW OF SYSTEMS: GENERAL: Denies fevers, chills, weight, appetite, sleep changes. EYES: Denies vision changes or eye pain. RESPIRATORY: Denies cough, congestion, shortness of breath. CARDIOVASCULAR: Denies chest pain, palpitations. GI: Denies nausea, vomiting, diarrhea. GENITOURINARY: Denies incontinence, dysuria. SKIN: Denies rashes or lesions. MUSCULOSKELETAL: Denies pain or tenderness. NEURO: Denies weakness, numbness. PSYCHIATRIC: Endorses depression. Denies anxiety. PHYSICAL EXAMINATION: VITAL SIGNS: Blood pressure 116/77, pulse of 87, respiratory rate 16, T-max 99.7, pulse ox 90% on ro om air. Current weight 145 kilograms. GENERAL: Alert and oriented x4, no apparent distress. Well-developed, well-nourished, obese, not ap propriately interactive. EYES: PERRLA. EOMI. ENT: Nasal mucosa and oropharynx within normal limits. CARDIOVASCULAR: Regular rate and rhythm. No murmurs, rubs or gallops. RESPIRATORY: Normal effort, no retractions, clear to auscultation bilaterally. SKIN: Warm and dry. No cyanosis or lesions. ABDOMEN: Soft, nontender to palpation. Hypoactive bowel sounds. No masses or distention. EXTREMITIES: No clubbing or cyanosis. No edema. MUSCULOSKELETAL: Structure within normal limits. NEUROLOGIC: No focal deficits. GCS 15. PSYCHIATRIC: Not appropriate. LABORATORY DATA: CBC; 11.3, 16.2, 47.6, 272. CMP, 142, 4.2, 107, 24, 14.94, 82. GFR 90. AST, ALT, alkaline phosphatase 23, 27, 35. Total protein 6.3, albumin 4.1, total bilirubin 0.4, calcium 9.6. CK 132. TSH 7.1676. EKG; sinus tachycardia at 113 with some LVH. UDS negative. ASSESSMENT AND PLAN: 1. A 22-year-old male with an extensive past psychiatric history, schizophrenia, bipolar disorder wi th depression and borderline personality disorder with prior suicide attempts and an inpatient psychi atric stay in 03/2017, admitted for an intentional overdose secondary to taking Wellbutrin, Geodon an d Benadryl. We will admit the patient to medical observation, we will provide fluids of normal salin e at maintenance dose overnight. We will provide an MHMR consult and a 1:1 sitter. We will hold his psych meds at this time. 2. Schizophrenia, bipolar disorder, borderline personality disorder. We will restart his home medic ations in the morning. 3. Hypothyroidism. He has an elevated TSH. We will increase his Synthroid from 25 mcg per day to 5 0 mcg per day. DISPOSITION/LENGTH OF HOSPITAL STAY: Unclear as the patient may need inpatient psych placement. Symptomatic medications will be provided. History and physical exam as well as management discussed with Dr. Kovacs.
--- NOTE | 2017-10-26 08:36 | PDOC.EVN ---
Attending Addendum - Attending Addendum I personally evaluated the patient and discussed the management with Dr. Kp Ray. I agree with the History, Examination, Assessment and Plan documented in her H& P with any addition or exceptions noted below. Patient with history of schizophrenia, borderline PD, history of suicide attempts presenting after ingestion of an excess of his chronic meds in an attempt to end his life. He appears to be medically noncompliant as he reports he has been off his medications for awhile, and he has been having auditory hallucinations that precipitated his attempt to end his life. He took a modest overdose of Wellbutrin and Geodon, and a therapeutic dose of Benadryl before presenting to the ER. Poison control recommended observation. Initial EKG shows no evidence of cardiac involvement, and patient has no evidence of serotonin syndrome, likely in support of the modest amount of medication ingested. We will touch base with poison control later this morning, but will likely be able to safely declare patient medically stable for [facility] to evaluate later today.
[2017-10-26 10:15] VITALS: BP 102/39
[2017-10-26 10:24] VITALS: TEMP 98.3
[2017-10-26 10:25] VITALS: BMI 47.0
[2017-10-27 04:37] LABS: #Basophils 0.1 thou/uL (0.0-0.2); #Eosinphils 0.3 thou/uL (0.0-0.7); #Lymphocytes 2.8 thou/uL (1.20-3.40); #Monocytes 0.8 thou/uL (0.11-0.59); #Neutrophils 5.4 thou/uL (1.40-6.50); %Basophils 0.8 % (0.0-1.0); %Eosinophils 3.3 % (0.0-10.0); %Lymphocytes 29.5 % (21.0-51.0); %Monocytes 8.8 % (0.0-10.0); %Neutrophils 57.5 % (42.0-75.0); Hemoglobin 14.3 g/dL (14.0-18.0); Mean Corpuscular HGB CONC 34.2 g/dL (32.0-36.0); Mean Corpuscular Hemoglobin 29.6 pg (27.0-31.0); Mean Corpuscular Volume 86.4 fl (80.0-94.0); Mean Platelet Volume 7.2 fL (7.4-10.4); Platelet Count 229 thou/uL (130-400); RBC Distribution Width 11.8 % (11.5-14.5); Red Blood Cell (RBC) Count 4.83 mill/uL (4.70-6.10); White Blood Cell (WBC) Count 9.4 thou/uL (4.8-10.8)
[2017-10-27 04:42] LABS: Anion Gap 12 mmol/L (10-20); BUN (Urea Nitrogen) 12 mg/dL (8.9-20.6); Calc. Creatinine Clearance 212 mL/min (70-130); Calcium 9.2 mg/dL (7.8-10.44); Carbon Dioxide 28 mmol/L (22-29); Chloride 104 mmol/L (98-107); Estimated GFR-MDRD 88; Glucose 114 mg/dL (70-105); Potassium 3.9 mmol/L (3.5-5.1); Sodium 140 mmol/L (136-145)
--- NOTE | 2017-10-27 05:40 | PDOC.FM ---
- Subjective Subjective: Cooper Aguilar is doing well this morning, he denies any acute events overnight. He states that he is occasionally hot but he has not had any fevers , tachycardia. He denies chest pain, palpitations, dyspnea, n/v/d. - Objective MAR Reviewed: Yes Vital Signs & Weight: Weight Weight 136.078 kg Result Diagrams: 10/27/17 03:42 10/27/17 03:42 <Cruzito Guidry - Last Filed: 10/27/17 08:06> - Objective Vital Signs & Weight: Weight Weight 136.078 kg Result Diagrams: 10/27/17 03:42 10/27/17 03:42 <Colin Kovacs - Last Filed: 10/27/17 12:14> Phys Exam - Physical Examination Constitutional: NAD HEENT: moist MMs, sclera anicteric Neck: no JVD, supple, full ROM Respiratory: no wheezing, no rales, no rhonchi, clear to auscultation bilateral Cardiovascular: RRR, no significant murmur Musculoskeletal: no edema, pulses present Neurological: non-focal, normal sensation, moves all 4 limbs Psychiatric: normal affect, A&O x 3 <Cruzito Guidry - Last Filed: 10/27/17 08:06> Dx/Plan (1) Subclinical hypothyroidism Code(s): E03.9 - HYPOTHYROIDISM, UNSPECIFIED Status: Acute (2) Suicide attempt by drug ingestion Code(s): T50.902A - POISONING BY UNSP DRUG/MEDS/BIOL SUBST, SELF-HARM, INIT Status: Acute (3) Bipolar disorder Code(s): F31.9 - BIPOLAR DISORDER, UNSPECIFIED Status: Chronic (4) Depression Code(s): F32.9 - MAJOR DEPRESSIVE DISORDER, SINGLE EPISODE, UNSPECIFIED Status : Chronic (5) Schizophrenia Code(s): F20.9 - SCHIZOPHRENIA, UNSPECIFIED Status: Chronic - Plan Plan: 1) Intentional Overdose on Wellbutrin, Geodon, and Benadryl. Each dose about approximately double of the max daily dose Patient has been doing well, asymptomatic, and medically stable He is awaiting placement at [facility]. 2) Schizophrenia, Bipolar disorder, borderline personality disorder: Continue home meds 3) Hypothyroidism: increased Synthroid to 50 mcg day <rCuzito Guidry - Last Filed: 10/27/17 08:06> Attending Addendum - Attending Addendum I personally evaluated the patient and discussed the management with Dr. Guidry. I agree with the History, Examination, Assessment and Plan documented above with any addition or exceptions noted below. Patient stable. Awaiting inpatient psych placement. <Colin Kovacs - Last Filed: 10/27/17 12:14>
[2017-10-27] MEDS ORDERED: Bupropion 150 MG XL TAB PO SCH (09:00)
[2017-10-27] MEDS ORDERED: Gabapentin 100 MG CAP PO SCH (09:00)
[2017-10-27] MEDS ORDERED: hydrOXYzine Pamoate 25 mg Capsule PO SCH (09:00)
[2017-10-27] MEDS ORDERED: Benztropine 1 MG TAB PO SCH (21:00)
[2017-10-27] MEDS ORDERED: Gabapentin 300 MG CAP PO SCH (21:00)
[2017-10-27] MEDS ORDERED: traZODone HCl 150 MG TAB PO SCH (21:00)
--- NOTE | 2017-10-28 05:30 | PDOC.FM ---
- Subjective Subjective: Mr. Aguilar is seen a bedside today, he denies any acute events overnight. He denies any chest pain, diaphoresis, palpitations, dyspnea, n/v/d. He is awaiting an available bed at [facility]. - Objective MAR Reviewed: Yes Vital Signs & Weight: Weight Weight 136.078 kg Result Diagrams: 10/27/17 03:42 10/27/17 03:42 <Cruzito Guidry - Last Filed: 10/28/17 08:46> - Objective Vital Signs & Weight: Weight Weight 136.078 kg Result Diagrams: 10/27/17 03:42 10/27/17 03:42 <Colin Kovacs - Last Filed: 10/28/17 11:00> Phys Exam - Physical Examination Constitutional: NAD HEENT: moist MMs, sclera anicteric Neck: no JVD, supple, full ROM Respiratory: no wheezing, no rales, no rhonchi, clear to auscultation bilateral Cardiovascular: RRR, no significant murmur Musculoskeletal: no edema Neurological: non-focal, normal sensation, moves all 4 limbs Psychiatric: normal affect, A&O x 3 <Cruzito Guidry - Last Filed: 10/28/17 08:46> Dx/Plan (1) Subclinical hypothyroidism Code(s): E03.9 - HYPOTHYROIDISM, UNSPECIFIED Status: Acute (2) Suicide attempt by drug ingestion Code(s): T50.902A - POISONING BY UNSP DRUG/MEDS/BIOL SUBST, SELF-HARM, INIT Status: Acute (3) Bipolar disorder Code(s): F31.9 - BIPOLAR DISORDER, UNSPECIFIED Status: Chronic (4) Depression Code(s): F32.9 - MAJOR DEPRESSIVE DISORDER, SINGLE EPISODE, UNSPECIFIED Status : Chronic (5) Schizophrenia Code(s): F20.9 - SCHIZOPHRENIA, UNSPECIFIED Status: Chronic - Plan Plan: 1) Intentional Overdose on Wellbutrin, Geodon, and Benadryl. Each dose about approximately double of the max daily dose Patient has been doing well, asymptomatic, and medically stable. Restart all home meds today. He is awaiting placement at [facility]. 2) Schizophrenia, Bipolar disorder, borderline personality disorder: Continue home meds 3) Hypothyroidism: increased Synthroid to 50 mcg day <Chao,Cruzito - Last Filed: 10/28/17 08:46> Attending Addendum - Attending Addendum I personally evaluated the patient and discussed the management with Dr. Guidry. I agree with the History, Examination, Assessment and Plan documented above with any addition or exceptions noted below. Patient stable. Awaiting inpatient psych transfer. <Colin Kovacs R - Last Filed: 10/28/17 11:00>
[2017-10-28] MEDS ORDERED: Ziprasidone 20 MG CAP PO SCH (08:00)
[2017-10-28] MEDS ORDERED: Ziprasidone 20 MG CAP ONE (08:32)
--- NOTE | 2017-10-29 05:33 | PDOC.FM ---
- Subjective Subjective: Pt states that he is no longer suicidal, however still has depressed feelings. He denies chest pain, SOB, n/v and all other symptoms in ROS. There were no acute events over night. - Objective Vital Signs & Weight: Weight Weight 136.078 kg Result Diagrams: 10/27/17 03:42 10/27/17 03:42 Phys Exam - Physical Examination Constitutional: NAD HEENT: PERRLA, moist MMs Neck: no nodes, full ROM Respiratory: clear to auscultation bilateral Cardiovascular: RRR, no significant murmur Gastrointestinal: soft, non-tender, no distention, positive bowel sounds Musculoskeletal: no edema Neurological: non-focal, moves all 4 limbs Psychiatric: A&O x 3 Deviation from normal: Depressed affect Skin: no rash Dx/Plan (1) Suicide attempt by drug ingestion Code(s): T50.902A - POISONING BY UNSP DRUG/MEDS/BIOL SUBST, SELF-HARM, INIT Status: Resolved Qualifiers: (2) Subclinical hypothyroidism Code(s): E03.9 - HYPOTHYROIDISM, UNSPECIFIED Status: Chronic (3) Bipolar disorder Code(s): F31.9 - BIPOLAR DISORDER, UNSPECIFIED Status: Chronic Qualifiers: Active/Remission status: remission status unspecified (4) Depression Code(s): F32.9 - MAJOR DEPRESSIVE DISORDER, SINGLE EPISODE, UNSPECIFIED Status : Chronic Qualifiers: Depression Type: unspecified (5) Schizophrenia Code(s): F20.9 - SCHIZOPHRENIA, UNSPECIFIED Status: Chronic Qualifiers: Schizophrenia type: unspecified Qualified Code(s): F20.9 - Schizophrenia, unspecified - Plan Plan: 1) Intentional Overdose on Wellbutrin, Geodon, and Benadryl. - Each dose about approximately double of the max daily dose - Patient has been doing well, asymptomatic, and medically stable as he has been the entirety of his admission - Per DEC, pt did not receive his home meds yesterday. - He is awaiting placement at [facility]. 2) Schizophrenia, Bipolar disorder, borderline personality disorder: - Continue home meds 3) Hypothyroidism: - continue new Synthroid 4) BPD - currently depressed - continue home meds - awaiting [facility] placement as above 5) Depression - associated w/BPD - continue meds as above Dispo: Pt is medically stable and awaiting placement
--- NOTE | 2017-10-30 21:48 | DIS-2 ---
DATE OF ADMISSION: 10/26/2017 DATE OF DISCHARGE: 10/30/2017 RESIDENT: Cruzito Guidry M.D. ADMITTING ATTENDING: Colin Kovacs M.D. DISCHARGE ATTENDING: Tony Chery M.D. CONSULTS: [facility] on 10/26/2017. PROCEDURES: None. PRIMARY DIAGNOSIS: Suicide attempt by drug ingestion. SECONDARY DIAGNOSES: 1. Bipolar disorder. 2. Depression. 3. Schizophrenia. 4. Morbid obesity. 5. Subclinical hypothyroidism. DISCHARGE MEDICATIONS: 1. Continue all home medications. 2. Gabapentin 300 mg p.o. t.i.d. 3. Levothyroxine sodium 25 mcg p.o. daily. 4. Geodon 40 mg p.o. q.a.m. with meals. 5. Wellbutrin-XL 300 mg p.o. daily. 6. Trazodone HCL 150 mg p.o. at bedtime. 7. Benztropine 1 mg p.o. at bedtime. 8. Hydroxyzine pamoate 25 mg p.o. t.i.d. DISCONTINUED MEDICATIONS: Normal saline 125 mL an hour IV. HISTORY OF PRESENT ILLNESS AND HOSPITAL COURSE: Cooper Aguilar is a 22-year-old male with past medic al history of bipolar disorder, schizophrenia, and borderline personality disorder who presented via EMS after an intentional overdose on Wellbutrin 150 mg x4 tablets, Geodon 40 mg x5 tablets and Benadr yl 50 mg. The patient states that he was tired of the voices in his head and wanted to make them sto p. States he took the medications at 7:00 p.m. the night before. States that he is not having audit ory hallucinations, but he does state that his subconscious told him to take the medications and the subconscious also told him to stop taking his daily medications for his psychiatric conditions. In t he past, he has thought about hanging himself to stop his subconscious thoughts. When the patient ar rived to the ED, his blood pressure is 116/77, pulse 87, respiratory rate 16, T-max 99.7, pulse ox 90 % on room air. Physical exam was unremarkable. Labs were unremarkable with exception of TSH of 7.16 76 and an EKG that initially showed sinus tachycardia 113 with some left ventricular hypertrophy. UD S was negative. The patient essentially had a mass overdose of Wellbutrin, Geodon and a therapeutic dose of Benadryl before presenting to the ER. Poison Control recommended observation. Initial EKG s howed no evidence of cardiac involvement and the patient throughout the entire admission showed no ev idence of serotonin syndrome. The patient was medically stable throughout his admission and initiall y, he was awaiting placement for inpatient admission at [facility]. However, on , the patient was cleared for discharge by [facility], stating that he was not an immediate danger to his own life. The patient was given instruction to follow up with [facility] and continued his normal home med ications. The patient was in agreement with this plan. DISPOSITION: Guarded at this time as the patient has had several instances of suicide attempts in th e past despite receiving inpatient assistance. The patient was instructed to follow up with [facility]. H e will continue his home medications. DISCHARGE INSTRUCTIONS: 1. Location: Home. 2. Diet: Regular diet. 3. Activity: As tolerated. 4. Follow up with [facility] and primary care physician within a couple days of discharge.
--- NOTE | 2017-11-12 22:42 | EKG ---
Test Reason : Blood Pressure : / mmHG Vent. Rate : 113 BPM Atrial Rate : 113 BPM P-R Int : 132 ms QRS Dur : 082 ms QT Int : 344 ms P-R-T Axes : 030 002 005 degrees QTc Int : 471 ms Poor data quality, interpretation may be adversely affected Sinus tachycardia Minimal voltage criteria for LVH, may be normal variant Borderline ECG Confirmed by CARLIE COOK ([id number]), newspaper or periodical editor LARRY MCCARTHY ([id number]) on 11/12/2017 10:40:59 PM Referred By: Confirmed By:CARLIE COOK
== END 2017-10-28 12:36 | disposition home or self-care (01) ==
LOC: ERS 20:35 → ERHOLD 10-26 02:23
PROVIDERS: ADMIT Student in an Organized Health Care Education/Training Program; ATTEND Student in an Organized Health Care Education/Training Program
DX: T43.292A Poisoning by other antidepressants, intentional self-harm, initial encounter (principal); T43.592A Poisoning by other antipsychotics and neuroleptics, intentional self-harm, initial encounter; T45.0X2A Poisoning by antiallergic and antiemetic drugs, intentional self-harm, initial encounter; F31.9 Bipolar disorder, unspecified; F20.9 Schizophrenia, unspecified; E66.01 Morbid (severe) obesity due to excess calories; E02 Subclinical iodine-deficiency hypothyroidism; F60.3 Borderline personality disorder; Z68.42 Body mass index [BMI] 45.0-49.9, adult; Z79.899 Other long term (current) drug therapy; Z88.8 Allergy status to other drugs, medicaments and biological substances; Z91.5 Personal history of self-harm
CPT/HCPCS: 36415; 80048; 80053; 80306; 80307; 81003; 82550; 84443; 85025; 93005; 96360; 96361; Q0177

== ENCOUNTER 2018-02-01 21:09 | Inpatient (IN) | payer MEDICAID ==
[2018-02-01 22:21] LABS: Acetaminophen Less than 6.0 mcg/mL (6.0-30.0); Alcohol Less than 10 mg/dL (Less than 10); Salicylate Less than 8.0 mg/dL (15.0-30.0)
[2018-02-01 22:32] LABS: #Basophils 0.1 thou/uL (0.0-0.2); #Eosinphils 0.1 thou/uL (0.0-0.7); #Lymphocytes 1.2 thou/uL (1.20-3.40); #Monocytes 0.6 thou/uL (0.11-0.59); %Basophils 0.7 % (0.0-1.0); %Lymphocytes 13.2 % (21.0-51.0); %Monocytes 6.5 % (0.0-10.0); %Neutrophils 78.6 % (42.0-75.0); Hemoglobin 13.6 g/dL (14.0-18.0); Mean Corpuscular HGB CONC 33.7 g/dL (32.0-36.0); Mean Corpuscular Hemoglobin 28.9 pg (27.0-31.0); Mean Corpuscular Volume 85.7 fl (80.0-94.0); Mean Platelet Volume 7.3 fL (7.4-10.4); Platelet Count 202 thou/uL (130-400); RBC Distribution Width 11.4 % (11.5-14.5); Red Blood Cell (RBC) Count 4.71 mill/uL (4.70-6.10)
[2018-02-01 22:38] LABS: Magnesium 1.6 mg/dL (1.6-2.6)
[2018-02-01 22:41] LABS: ALT (SGPT) 22 U/L (8-55); AST (SGOT) 23 U/L (5-34); Alkaline Phosphatase 39 U/L (40-150); Anion Gap 15 mmol/L (10-20); BUN (Urea Nitrogen) 11 mg/dL (8.9-20.6); Bilirubin, Total 0.5 mg/dL (0.2-1.2); CK (CPK) 92 U/L (30-200); Calc. Creatinine Clearance 0 mL/min (70-130); Calcium 8.1 mg/dL (7.8-10.44); Carbon Dioxide 18 mmol/L (22-29); Chloride 111 mmol/L (98-107); Estimated GFR-MDRD Greater than 90; Globulin 1.9 g/dL (2.4-3.5); Glucose 98 mg/dL (70-105); Potassium 3.9 mmol/L (3.5-5.1); Protein, Total 5.9 g/dL (6.0-8.3); Sodium 140 mmol/L (136-145)
[2018-02-01 22:45] LABS: Bilirubin Negative (Negative); Blood, Urine Negative (Negative); Clarity CLEAR (Clear); Glucose, Urine (Dipstick) Negative (Negative); Leukocyte Negative (Negative); Nitrite Negative (Negative); Protein, Urine (Dipstick) 30 mg/dL (Neg-Trace); Specific Gravity, Urine 1.023 (1.002-1.036); Urobilinogen 0.2 mg/dL (0.2-1.0); pH, Urine 5.5 (5.0-9.0)
[2018-02-01 22:47] LABS: Bacteria/HPF None Seen HPF (None Seen); Pathc Cast-AUWi Flag 2.18 (0-2.49); RBC/HPF None Seen HPF (0-3); Squamous Epithelial 0-3 HPF (0-3); WBC/HPF 0-3 HPF (0-3)
[2018-02-01 22:53] LABS: Amphetamine Not Detected (NotDetected); Barbiturates Screen Not Detected (NotDetected); Benzodiazepine Screen Not Detected (NotDetected); Cocaine Metabolite Screen Not Detected (NotDetected); Medtox Control Line Valid? VALID (VALID); Medtox Reader # READER 4; Methadone Not Detected (NotDetected); Methamphetamine Not Detected (NotDetected); Opiate Screen Not Detected (NotDetected); Oxycodone Screen Not Detected (NotDetected); Phencyclidine (PCP) Not Detected (NotDetected); THC/Cannabinoid Screen Not Detected (NotDetected); Tricyclic Screen Detected (NotDetected)
[2018-02-01 22:56] LABS: Hyaline Casts/LPF 4-6 HYALINE CAST LPF (0-3 Hyaline)
[2018-02-01 23:36] LABS: CKMB 0.8 ng/mL (0-6.6); Troponin I Less than 0.010 ng/mL (< 0.028)
[2018-02-02] MEDS ORDERED: Acetaminophen 325 MG TAB PO PRN ×2 (01:21→03:17)
[2018-02-02] MEDS ORDERED: Ondansetron ODT 4 MG TAB SL PRN (01:21)
[2018-02-02] MEDS ORDERED: Sodium Chloride 0.9% 1,000 ML IV SCH (01:21)
[2018-02-02] MEDS ORDERED: Ondansetron HCl/PF 4 MG/2 ML Vial IVP PRN (01:21)
[2018-02-02 02:29] LABS: Troponin I Less than 0.010 ng/mL (< 0.028)
[2018-02-02] MEDS ORDERED: Senokot 8.6 MG TAB PO PRN (03:17)
[2018-02-02] MEDS ORDERED: Calcium Carbonate 500 MG ChewTAB PO PRN (03:17)
[2018-02-02] MEDS ORDERED: Nitroglycerin 0.4 MG TAB (25 Tab Bottle) PO PRN (03:17)
[2018-02-02] MEDS ORDERED: Acetaminophen 650 MG Suppository PR PRN (03:17)
[2018-02-02] MEDS ORDERED: Labetalol HCl 100 MG/20 ML VIAL SLOW IVP PRN (03:19)
--- NOTE | 2018-02-02 03:36 | HP ---
DATE OF ADMISSION: 02/01/2018 The patient was seen and examined on 02/01/2018 PRIMARY CARE PHYSICIAN: [facility]. CHIEF COMPLAINT: Altered mentation. HISTORY OF PRESENT ILLNESS: The patient is a 22-year-old male with depression, bipolar disorder, and schizophrenia with several intentional drug overdose in the past, presented to the emergency room by EMS with drug overdose. The patient took 30 pills of Wellbutrin, gabapentin and doxycycline around 7:00 p.m. today per ER report. He was found to have significant tachycardia requiring total of 30 mg of adenosine by EMS. He is protecting his airways. At this time, no information is available from the patient. History obtained from the ER chart. In the emergency room, initial vital signs showed temperature 97.4, respirations 25, pulse rate of 14 4, blood pressure of 132/84 with O2 saturation 96% on room air. Poison Control was contacted. Per P oison Control, if QRS interval is greater than 100, bicarbonate drip needs to be started. He will ne ed 24-hour tele monitoring. PAST MEDICAL HISTORY: 1. Morbid obesity. 2. Anxiety, depression, bipolar disorder, and schizophrenia. 3. Suicidal attempt by drug ingestion in the past. 4. Subclinical hypothyroidism. PAST SURGICAL HISTORY: None per previous record. ALLERGIES: The patient is allergic to TOPAMAX. CURRENT HOME MEDICATIONS: Unavailable from the patient due to current cognitive status. FAMILY HISTORY: Cannot be obtained from the patient due to current cognitive status. SOCIAL HISTORY: Cannot be obtained from the patient due to current cognitive status. REVIEW OF SYSTEMS: Cannot be obtained from the patient due to current cognitive status. PHYSICAL EXAMINATION: VITAL SIGNS: As discussed above. GENERAL: A 22-year-old morbidly obese male with altered mentation. Somnolent. He is arousable with sternal rub and calling out his name loudly. HEENT: Head atraumatic, normocephalic. Pupils are 3-4 mm with good response to light. NECK: Supple, no JVD, no neck stiffness. LUNGS: Clear to auscultation bilaterally, no wheezing, rales or rhonchi. HEART: S1, S2 present. Tachycardic, no rubs, gallops or significant murmurs appreciated. ABDOMEN: Soft, obese, bowel sounds present, no guarding or rigidity appreciated. EXTREMITIES: No edema or calf tenderness. NEUROLOGIC AND PSYCHIATRIC: Could not be assessed due to current cognitive status. There was no hyp ertonia or rigidity. SKIN: Warm and dry. LYMPH NODES: No palpable lymph nodes in the neck. PERIPHERAL VASCULAR: Radial pulses palpable bilaterally. MUSCULOSKELETAL: No joint swelling or tenderness. LABORATORY AND X-RAY FINDINGS: 1. CBC showed WBC 9.0 with hemoglobin 13.6. 2. Troponins were negative. 3. TSH 5.3. 4. BUN 11, creatinine 0.87, sodium of 140 with potassium 3.9. 5. Urinalysis showed hyaline cast. 6. Urine drug screen positive for tricyclics. 7. EKG by my review showed sinus tachycardia with left axis deviation. IMPRESSION: 1. Drug overdose with Wellbutrin, gabapentin and doxycycline. 2. Sinus tachycardia secondary to #1. 3. Anxiety, depression, bipolar disorder, and schizophrenia. 4. Subclinical hypothyroidism. 5. Morbid obesity. 6. History of suicidal overdose in the past. 7. Dehydration. PLAN: The patient will be monitored in the intermediate care unit. Sitter will be arranged. Due to QRS interval of 100 milliseconds on the EKG, we will start him on bicarbonate drip. Telemetry monit oring. We will consult [facility] when stable for discharge. We will discuss the plan of care when the patient is more awake.
[2018-02-02 03:56] LABS: Anion Gap 10 mmol/L (10-20); BUN (Urea Nitrogen) 9 mg/dL (8.9-20.6); Calc. Creatinine Clearance 272 mL/min (70-130); Calcium 8.4 mg/dL (7.8-10.44); Carbon Dioxide 23 mmol/L (22-29); Chloride 111 mmol/L (98-107); Estimated GFR-MDRD Greater than 90; Glucose 92 mg/dL (70-105); Potassium 3.9 mmol/L (3.5-5.1); Sodium 140 mmol/L (136-145)
[2018-02-02] MEDS: Sodium Bicarbonate 100 MEQ in Dextrose 5% in Water 1,000 ML IV SCH ×2 (04:26→12:17)
[2018-02-02 12:45] LABS: Anion Gap 11 mmol/L (10-20); BUN (Urea Nitrogen) 6 mg/dL (8.9-20.6); Calc. Creatinine Clearance 266 mL/min (70-130); Calcium 9.2 mg/dL (7.8-10.44); Carbon Dioxide 25 mmol/L (22-29); Chloride 107 mmol/L (98-107); Estimated GFR-MDRD Greater than 90; Glucose 90 mg/dL (70-105); Potassium 3.8 mmol/L (3.5-5.1); Sodium 139 mmol/L (136-145)
--- NOTE | 2018-02-02 15:26 | PDOC.PN ---
- Subjective Encounter Start Date: 02/02/18 Encounter Start Time: 12:15 Subjective: pt up in bed drowsy easily arousable - Objective Resuscitation Status: Resuscitation Status FULL:Full Resuscitation Vital Signs & Weight: Vital Signs (12 hours) Temp Pulse Resp BP Pulse Ox 02/02/18 15:16 99.3 F 110 H 20 152/69 H 97 02/02/18 11:45 98.3 F 120 H 16 117/64 100 02/02/18 08:00 97.3 F L 97 18 98 02/02/18 07:41 97.3 F L 97 18 110/73 98 02/02/18 04:00 97.8 F 98 19 130/85 99 Weight Weight 293 lb 2 oz I&O: 02/01/18 02/02/18 02/03/18 06:59 06:59 06:59 Intake Total 675 Balance 675 Result Diagrams: 02/01/18 21:48 02/02/18 11:54 Phys Exam - Physical Examination HEENT: PERRLA, moist MMs, sclera anicteric, TM's clear, oral pharynx no lesions , 2+ tonsils Neck: no nodes, no JVD, supple, full ROM Respiratory: no wheezing, no rales, no rhonchi, wheezing present, clear to auscultation bilateral Cardiovascular: RRR, no significant murmur, no rub, gallop, irregular Gastrointestinal: soft, non-tender, no distention, positive bowel sounds Dx/Plan - Plan 1) overdose 2) suicide attempted 3) sinus tachycardia 4) morbid obesity plan: pt is off bicarb drip. will start him on gentle hydration until he wakes up a bit. pt has a sitter. will need to go to inpatient psy. * . Review of Systems - Review of Systems Other: pt not cooperative - Medications/Allergies Allergies/Adverse Reactions: Allergies Allergy/AdvReac Type Severity Reaction Status Date / Time topiramate [From Topamax] Allergy Intermediate Rash Verified 02/02/18 03:28 Medications: Current Medications Acetaminophen (Tylenol) 650 mg MA Q4H PRN PRN Reason: Headache/Fever or Pain Acetaminophen (Tylenol) 650 mg PO Q4H PRN PRN Reason: Headache/Fever or Pain Calcium Carbonate (Tums) 1,000 mg PO Q4H PRN PRN Reason: Heartburn or Indigestion Enoxaparin Sodium (Lovenox) 40 mg SC 0900 [facility] Sodium Bicarbonate 100 meq/ (Dextrose/Water) 1,100 mls @ 150 mls/hr IV .Q7H20M COUNT INCLUDES THE [facility] Last Admin: 02/02/18 12:17 Dose: Not Given Labetalol HCl (Normodyne) 10 mg SLOW IVP Q4H PRN PRN Reason: Systolic BP > 180 Nitroglycerin (Nitrostat) 0.4 mg PO Q5MIN PRN PRN Reason: Chest Pain Senna (Senokot) 2 tab PO HSPRN PRN PRN Reason: Constipation Sodium Chloride (Flush - Normal Saline) 10 ml IVF Q12HR [facility]CLUDES [facility] Last Admin: 02/02/18 12:17 Dose: Not Given Sodium Chloride (Flush - Normal Saline) 10 ml IVF PRN PRN PRN Reason: Saline Flush Last Admin: 02/02/18 02:48 Dose: 10 ml
[2018-02-02] MEDS: Dextrose 5 % And 0.9 % NaCl 1,000 ML IV SCH (16:42)
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
[2018-02-03 05:00] LABS: Band 1 % (5-11); Eosinophils 3 % (0-10); Hemoglobin 13.6 g/dL (14.0-18.0); Lymphocytes 34 % (21-51); MDiff Complete? YES; Mean Corpuscular HGB CONC 34.7 g/dL (32.0-36.0); Mean Corpuscular Hemoglobin 29.1 pg (27.0-31.0); Mean Platelet Volume 7.1 fL (7.4-10.4); Monocytes 5 % (0-10); Neutrophil 57 % (42-75); PLT Morphology Comment Appears Adequate; Platelet Count 208 thou/uL (130-400); RBC Distribution Width 11.5 % (11.5-14.5); Red Blood Cell (RBC) Count 4.68 mill/uL (4.70-6.10); White Blood Cell (WBC) Count 7.8 thou/uL (4.8-10.8)
[2018-02-03] MEDS: Dextrose 5 % And 0.9 % NaCl 1,000 ML IV SCH (05:10)
[2018-02-03 05:12] LABS: Anion Gap 12 mmol/L (10-20); BUN (Urea Nitrogen) 8 mg/dL (8.9-20.6); Calc. Creatinine Clearance 225 mL/min (70-130); Carbon Dioxide 26 mmol/L (22-29); Chloride 107 mmol/L (98-107); Estimated GFR-MDRD Greater than 90; Glucose 101 mg/dL (70-105); Magnesium 2.2 mg/dL (1.6-2.6); Potassium 3.9 mmol/L (3.5-5.1); Sodium 141 mmol/L (136-145)
[2018-02-03] MEDS: Enoxaparin Sodium 40 MG/0.4 ML SYRINGE SC SCH (08:18)
--- NOTE | 2018-02-03 12:59 | PDOC.PN ---
- Subjective Encounter Start Date: 02/03/18 Encounter Start Time: 09:00 -: old records requested/rev Patient seen and examined. No new complaints. No overnight events - Objective Resuscitation Status: Resuscitation Status FULL:Full Resuscitation MAR Reviewed: Yes Vital Signs & Weight: Vital Signs (12 hours) Temp Pulse Resp BP Pulse Ox 02/03/18 11:22 98.0 F 113 H 18 113/62 94 L 02/03/18 08:00 98.0 F 95 16 97 02/03/18 07:45 98.0 F 95 16 107/85 97 02/03/18 06:21 95 02/03/18 04:00 97.5 F L 91 20 113/52 L 96 Weight Weight 293 lb 2 oz I&O: 02/02/18 02/03/18 02/04/18 06:59 06:59 06:59 Intake Total 675 1555 Output Total 1425 Balance 675 130 Result Diagrams: 02/03/18 04:05 02/03/18 04:05 Phys Exam - Physical Examination Constitutional: NAD HEENT: PERRLA, moist MMs, sclera anicteric Neck: no JVD, supple Respiratory: no wheezing, no rales, no rhonchi Cardiovascular: RRR, no significant murmur, no rub Gastrointestinal: soft, non-tender, no distention, positive bowel sounds Musculoskeletal: no edema, pulses present Neurological: non-focal, normal sensation Lymphatic: no nodes Psychiatric: normal affect, A&O x 3 Skin: no rash, normal turgor Dx/Plan (1) Suicide attempt by drug ingestion Code(s): T50.902A - POISONING BY UNSP DRUG/MEDS/BIOL SUBST, SELF-HARM, INIT Status: Acute Qualifiers: (2) Bipolar disorder Code(s): F31.9 - BIPOLAR DISORDER, UNSPECIFIED Status: Chronic Qualifiers: Active/Remission status: remission status unspecified (3) Depression Code(s): F32.9 - MAJOR DEPRESSIVE DISORDER, SINGLE EPISODE, UNSPECIFIED Status : Chronic Qualifiers: Depression Type: unspecified (4) Obesity Code(s): E66.9 - OBESITY, UNSPECIFIED Status: Chronic (5) Schizophrenia Code(s): F20.9 - SCHIZOPHRENIA, UNSPECIFIED Status: Chronic Qualifiers: Schizophrenia type: unspecified Qualified Code(s): F20.9 - Schizophrenia, unspecified (6) Subclinical hypothyroidism Code(s): E03.9 - HYPOTHYROIDISM, UNSPECIFIED Status: Chronic - Plan 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 * will verify his psych meds and psych diagnosis Review of Systems - Review of Systems Constitutional: negative: fever, chills, sweats, weakness, malaise, other Eyes: negative: Pain, Vision Change, Conjunctivae Inflammation, Eyelid Inflammation, Redness, Other ENT: negative: Ear Pain, Ear Discharge, Nose Pain, Nose Discharge, Nose Congestion, Mouth Pain, Mouth Swelling, Throat Pain, Throat Swelling, Other Respiratory: negative: Cough, Dry, Shortness of Breath, Hemoptysis, SOB with Excertion, Pleuritic Pain, Sputum, Wheezing Cardiovascular: negative: chest pain, palpitations, orthopnea, paroxysmal nocturnal dyspnea, edema, light headedness, other Gastrointestinal: negative: Nausea, Vomiting, Abdominal Pain, Diarrhea, Constipation, Melena, Hematochezia, Other Genitourinary: negative: Dysuria, Frequency, Incontinence, Hematuria, Retention , Other Musculoskeletal: negative: Neck Pain, Shoulder Pain, Arm Pain, Back Pain, Hand Pain, Leg Pain, Foot Pain, Other Skin: negative: Rash, Lesions, Cameron, Bruising, Other - Medications/Allergies Allergies/Adverse Reactions: Allergies Allergy/AdvReac Type Severity Reaction Status Date / Time topiramate [From Topamax] Allergy Intermediate Rash Verified 02/02/18 03:28 Medications: Current Medications Acetaminophen (Tylenol) 650 mg PO Q4H PRN PRN Reason: Headache/Fever or Pain Calcium Carbonate (Tums) 1,000 mg PO Q4H PRN PRN Reason: Heartburn or Indigestion Enoxaparin Sodium (Lovenox) 40 mg SC 0900 [facility] Last Admin: 02/03/18 08:18 Dose: 40 mg Dextrose/Sodium Chloride (D5 0.9% Ns) 1,000 mls @ 75 mls/hr IV .[id number] [facility] Last Admin: 02/03/18 05:10 Dose: 1,000 mls Labetalol HCl (Normodyne) 10 mg SLOW IVP Q4H PRN PRN Reason: Systolic BP > 180 Nitroglycerin (Nitrostat) 0.4 mg PO Q5MIN PRN PRN Reason: Chest Pain Senna (Senokot) 2 tab PO HSPRN PRN PRN Reason: Constipation Sodium Chloride (Flush - Normal Saline) 10 ml IVF Q12HR [facility] Last Admin: 02/03/18 08:16 Dose: Not Given Sodium Chloride (Flush - Normal Saline) 10 ml IVF PRN PRN PRN Reason: Saline Flush Last Admin: 02/02/18 02:48 Dose: 10 ml
[2018-02-04] MEDS: Enoxaparin Sodium 40 MG/0.4 ML SYRINGE SC SCH (09:29)
--- NOTE | 2018-02-04 11:56 | PDOC.PN ---
- Subjective Encounter Start Date: 02/04/18 Encounter Start Time: 09:00 Patient seen and examined. No new complaints. No overnight events - Objective Resuscitation Status: Resuscitation Status FULL:Full Resuscitation MAR Reviewed: Yes Vital Signs & Weight: Vital Signs (12 hours) Temp Pulse Resp BP BP Pulse Ox 02/04/18 08:00 98.5 F 90 18 97 02/04/18 07:54 98.5 F 90 18 126/74 97 02/04/18 05:08 98 F 77 18 117/57 L 94 L 02/04/18 00:00 97.6 F 86 18 124/58 L 96 Weight Weight 293 lb 2 oz I&O: 02/03/18 02/04/18 02/05/18 06:59 06:59 06:59 Intake Total 1555 1620 Output Total 1425 Balance 130 1620 Result Diagrams: 02/03/18 04:05 02/03/18 04:05 Phys Exam - Physical Examination Constitutional: NAD HEENT: PERRLA, moist MMs, sclera anicteric Neck: no JVD, supple Respiratory: no wheezing, no rales, no rhonchi Cardiovascular: RRR, no significant murmur, no rub Gastrointestinal: soft, non-tender, no distention, positive bowel sounds morbid obesity+ Musculoskeletal: no edema, pulses present Neurological: non-focal, normal sensation, moves all 4 limbs Psychiatric: normal affect, A&O x 3 Skin: no rash, normal turgor, cap refill <2 seconds Dx/Plan (1) Suicide attempt by drug ingestion Code(s): T50.902A - POISONING BY UNSP DRUG/MEDS/BIOL SUBST, SELF-HARM, INIT Status: Acute Qualifiers: (2) Bipolar disorder Code(s): F31.9 - BIPOLAR DISORDER, UNSPECIFIED Status: Chronic Qualifiers: Active/Remission status: remission status unspecified (3) Depression Code(s): F32.9 - MAJOR DEPRESSIVE DISORDER, SINGLE EPISODE, UNSPECIFIED Status : Chronic Qualifiers: Depression Type: unspecified (4) Obesity Code(s): E66.9 - OBESITY, UNSPECIFIED Status: Chronic (5) Schizophrenia Code(s): F20.9 - SCHIZOPHRENIA, UNSPECIFIED Status: Chronic Qualifiers: Schizophrenia type: unspecified Qualified Code(s): F20.9 - Schizophrenia, unspecified (6) Subclinical hypothyroidism Code(s): E03.9 - HYPOTHYROIDISM, UNSPECIFIED Status: Chronic - Plan 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 * bedside sitter+ Review of Systems - Review of Systems ENT: negative: Ear Pain, Ear Discharge, Nose Pain, Nose Discharge, Nose Congestion, Mouth Pain, Mouth Swelling, Throat Pain, Throat Swelling, Other Respiratory: negative: Cough, Dry, Shortness of Breath, Hemoptysis, SOB with Excertion, Pleuritic Pain, Sputum, Wheezing Cardiovascular: negative: chest pain, palpitations, orthopnea, paroxysmal nocturnal dyspnea, edema, light headedness, other Gastrointestinal: negative: Nausea, Vomiting, Abdominal Pain, Diarrhea, Constipation, Melena, Hematochezia, Other Genitourinary: negative: Dysuria, Frequency, Incontinence, Hematuria, Retention , Other Musculoskeletal: negative: Neck Pain, Shoulder Pain, Arm Pain, Back Pain, Hand Pain, Leg Pain, Foot Pain, Other Skin: negative: Rash, Lesions, Cameron, Bruising, Other - Medications/Allergies Allergies/Adverse Reactions: Allergies Allergy/AdvReac Type Severity Reaction Status Date / Time topiramate [From Topamax] Allergy Intermediate Rash Verified 02/02/18 03:28 Medications: Current Medications Acetaminophen (Tylenol) 650 mg PO Q4H PRN PRN Reason: Headache/Fever or Pain Calcium Carbonate (Tums) 1,000 mg PO Q4H PRN PRN Reason: Heartburn or Indigestion Enoxaparin Sodium (Lovenox) 40 mg SC 0900 [facility] Last Admin: 02/04/18 09:29 Dose: 40 mg Labetalol HCl (Normodyne) 10 mg SLOW IVP Q4H PRN PRN Reason: Systolic BP > 180 Nitroglycerin (Nitrostat) 0.4 mg PO Q5MIN PRN PRN Reason: Chest Pain Senna (Senokot) 2 tab PO HSPRN PRN PRN Reason: Constipation Last Admin: 02/04/18 04:44 Dose: 2 tab Sodium Chloride (Flush - Normal Saline) 10 ml IVF Q12HR [facility] Last Admin: 02/04/18 09:29 Dose: 10 ml Sodium Chloride (Flush - Normal Saline) 10 ml IVF PRN PRN PRN Reason: Saline Flush Last Admin: 02/02/18 02:48 Dose: 10 ml
[2018-02-05] MEDS: Enoxaparin Sodium 40 MG/0.4 ML SYRINGE SC SCH (09:22)
--- NOTE | 2018-02-05 10:37 | PDOC.PN ---
- Subjective Encounter Start Date: 02/05/18 Encounter Start Time: 09:10 Patient seen and examined. No new complaints. No overnight events - Objective Resuscitation Status: Resuscitation Status FULL:Full Resuscitation MAR Reviewed: Yes Vital Signs & Weight: Vital Signs (12 hours) Temp Pulse Resp BP Pulse Ox 02/05/18 08:00 97.9 F 89 16 98 02/05/18 07:48 97.9 F 89 16 102/53 L 98 02/05/18 04:00 98 F 85 18 143/64 H 96 02/05/18 00:00 98.4 F 107 H 18 130/73 95 Weight Weight 293 lb 2 oz I&O: 02/04/18 02/05/18 02/06/18 06:59 06:59 06:59 Intake Total 1620 910 Balance 1620 910 Result Diagrams: 02/03/18 04:05 02/03/18 04:05 Phys Exam - Physical Examination Constitutional: NAD HEENT: PERRLA, moist MMs, sclera anicteric Neck: no JVD, supple Respiratory: no wheezing, no rales, no rhonchi Cardiovascular: RRR, no significant murmur, no rub Gastrointestinal: soft, non-tender, no distention, positive bowel sounds Musculoskeletal: no edema, pulses present Neurological: non-focal, normal sensation Lymphatic: no nodes Psychiatric: normal affect, A&O x 3 Skin: no rash, normal turgor Dx/Plan (1) Suicide attempt by drug ingestion Code(s): T50.902A - POISONING BY UNSP DRUG/MEDS/BIOL SUBST, SELF-HARM, INIT Status: Acute Qualifiers: (2) Bipolar disorder Code(s): F31.9 - BIPOLAR DISORDER, UNSPECIFIED Status: Chronic Qualifiers: Active/Remission status: remission status unspecified (3) Depression Code(s): F32.9 - MAJOR DEPRESSIVE DISORDER, SINGLE EPISODE, UNSPECIFIED Status : Chronic Qualifiers: Depression Type: unspecified (4) Obesity Code(s): E66.9 - OBESITY, UNSPECIFIED Status: Chronic (5) Schizophrenia Code(s): F20.9 - SCHIZOPHRENIA, UNSPECIFIED Status: Chronic Qualifiers: Schizophrenia type: unspecified Qualified Code(s): F20.9 - Schizophrenia, unspecified (6) Subclinical hypothyroidism Code(s): E03.9 - HYPOTHYROIDISM, UNSPECIFIED Status: Chronic - Plan cont current plan of care * await psych placement * medically stable * sitter bedside * medication reviewed as below * symptomatic treatment. Review of Systems - Review of Systems Constitutional: negative: fever, chills, sweats, weakness, malaise, other ENT: negative: Ear Pain, Ear Discharge, Nose Pain, Nose Discharge, Nose Congestion, Mouth Pain, Mouth Swelling, Throat Pain, Throat Swelling, Other Respiratory: negative: Cough, Dry, Shortness of Breath, Hemoptysis, SOB with Excertion, Pleuritic Pain, Sputum, Wheezing Cardiovascular: negative: chest pain, palpitations, orthopnea, paroxysmal nocturnal dyspnea, edema, light headedness, other Gastrointestinal: negative: Nausea, Vomiting, Abdominal Pain, Diarrhea, Constipation, Melena, Hematochezia, Other Genitourinary: negative: Dysuria, Frequency, Incontinence, Hematuria, Retention , Other Musculoskeletal: negative: Neck Pain, Shoulder Pain, Arm Pain, Back Pain, Hand Pain, Leg Pain, Foot Pain, Other Skin: negative: Rash, Lesions, Cameron, Bruising, Other - Medications/Allergies Allergies/Adverse Reactions: Allergies Allergy/AdvReac Type Severity Reaction Status Date / Time topiramate [From Topamax] Allergy Intermediate Rash Verified 02/02/18 03:28 Medications: Current Medications Acetaminophen (Tylenol) 650 mg PO Q4H PRN PRN Reason: Headache/Fever or Pain Calcium Carbonate (Tums) 1,000 mg PO Q4H PRN PRN Reason: Heartburn or Indigestion Enoxaparin Sodium (Lovenox) 40 mg SC 0900 [facility] Last Admin: 02/05/18 09:22 Dose: 40 mg Labetalol HCl (Normodyne) 10 mg SLOW IVP Q4H PRN PRN Reason: Systolic BP > 180 Nitroglycerin (Nitrostat) 0.4 mg PO Q5MIN PRN PRN Reason: Chest Pain Senna (Senokot) 2 tab PO HSPRN PRN PRN Reason: Constipation Last Admin: 02/04/18 04:44 Dose: 2 tab Sodium Chloride (Flush - Normal Saline) 10 ml IVF Q12HR [facility] Last Admin: 02/05/18 09:22 Dose: 10 ml Sodium Chloride (Flush - Normal Saline) 10 ml IVF PRN PRN PRN Reason: Saline Flush Last Admin: 02/02/18 02:48 Dose: 10 ml
--- NOTE | 2018-02-06 07:58 | DIS ---
PRIMARY CARE PHYSICIAN: [facility] call admission. DATE OF ADMISSION: 02/01/2018 DATE OF DISCHARGE: 02/06/2018 DISCHARGE DISPOSITION: Psych facility. PRIMARY DISCHARGE DIAGNOSES: 1. Drug overdose with Wellbutrin, gabapentin and doxycycline due to suicidal attempt. 2. Dehydration, corrected. 3. Sinus tachycardia, improved. SECONDARY DISCHARGE DIAGNOSES: Anxiety, depression, bipolar disorder, schizophrenia, subclinical hyp othyroidism, morbid obesity, history of suicidal overdose in the past. PRIMARY PROCEDURE/OPERATION: None. RADIOLOGICAL INVESTIGATION: None. SIGNIFICANT LABORATORY: WBC 7.8, hemoglobin 13.6, platelet 208. Sodium 141, potassium 3.9, BUN 8, c reatinine 0.97, calcium 2.2. Cardiac enzymes negative. LFTs normal. Urinalysis unremarkable. Urin e drug screen positive for tricyclic. DISCHARGE MEDICATIONS: The patient will continue to get his psych medication from [facility]. In addition to that, the patient will have Synthroid 25 mcg p.o. daily. CONTRAINDICATIONS: None. CODE STATUS: FULL CODE. INPATIENT CONSULTANTS: [facility]. Dr. Slade saw this patient initially because the patient was in [facility]. TEST RESULTS PENDING ON DISCHARGE: None. ALLERGIES: TOPIRAMATE. DISCHARGE PLAN: Post hospital, the patient will be discharged to psych facility based on [facility] once a rranged. HOSPITAL COURSE: A 22-year-old male who has above-mentioned psychiatric problems and he was doing re latively well, but got down in his mood and he took several pills different ones, Wellbutrin, doxycy gotti, gabapentin and he did a suicidal attempt. He was brought to emergency room with altered menta l status and he was admitted in [facility]. As patient was admitted in [facility], the patient was evaluated by pulmonary group. The patient was hydrated with IV fluid while in hospital. Upon stabilization, this patient was transferred to medical floor. [facility] was consulted. [facility] screened and they are working o n his discharge placement. The patient is otherwise medically stable. I saw this patient at bedside. VITAL SIGNS: Currently, temperature 97.8, pulse 100, respiratory rate 20, temperature 97.8, saturati on 95% on room air, blood pressure 121/64, weight 293 pound. GENERAL: The patient is currently alert, awake, no acute distress. HEAD: Normocephalic, atraumatic. LUNGS: Clear to auscultation without any rhonchi or rales. CARDIAC: S1, S2 regular without any murmur. ABDOMEN: Obesity present. Bowel sounds present, nontender, nondistended. No organomegaly, no mass, no suprapubic tenderness. BACK: Unremarkable. No CVA tenderness. EXTREMITIES: Upper extremity passive movement of all joints are normal. Lower extremity, no edema. Good peripheral pulsation. NEUROLOGIC: Nonfocal examination. The patient is medically stable for discharge once psych facility arranged.
[2018-02-06] MEDS: Enoxaparin Sodium 40 MG/0.4 ML SYRINGE SC SCH (10:16)
--- NOTE | 2018-02-06 11:16 | PDOC.PN ---
- Subjective Encounter Start Date: 02/06/18 Encounter Start Time: 07:45 Patient seen and examined. No new complaints. No overnight events - Objective Resuscitation Status: Resuscitation Status FULL:Full Resuscitation MAR Reviewed: Yes Vital Signs & Weight: Vital Signs (12 hours) Temp Pulse Resp BP BP Pulse Ox 02/06/18 08:00 97.9 F 93 16 123/64 95 02/06/18 03:00 97.8 F 105 H 20 121/64 95 Weight Weight 293 lb 2 oz I&O: 02/05/18 02/06/18 02/07/18 06:59 06:59 06:59 Intake Total 910 1410 Balance 910 1410 Result Diagrams: 02/03/18 04:05 02/03/18 04:05 Phys Exam - Physical Examination Constitutional: NAD HEENT: PERRLA, moist MMs, sclera anicteric Neck: no JVD, supple Respiratory: no wheezing, no rales, no rhonchi Cardiovascular: RRR, no significant murmur, no rub Gastrointestinal: soft, non-tender, no distention, positive bowel sounds Musculoskeletal: no edema, pulses present Neurological: non-focal, normal sensation, moves all 4 limbs Psychiatric: normal affect, A&O x 3 Skin: no rash, normal turgor Dx/Plan (1) Suicide attempt by drug ingestion Code(s): T50.902A - POISONING BY UNSP DRUG/MEDS/BIOL SUBST, SELF-HARM, INIT Status: Acute Qualifiers: (2) Bipolar disorder Code(s): F31.9 - BIPOLAR DISORDER, UNSPECIFIED Status: Chronic Qualifiers: Active/Remission status: remission status unspecified (3) Depression Code(s): F32.9 - MAJOR DEPRESSIVE DISORDER, SINGLE EPISODE, UNSPECIFIED Status : Chronic Qualifiers: Depression Type: unspecified (4) Obesity Code(s): E66.9 - OBESITY, UNSPECIFIED Status: Chronic (5) Schizophrenia Code(s): F20.9 - SCHIZOPHRENIA, UNSPECIFIED Status: Chronic Qualifiers: Schizophrenia type: unspecified Qualified Code(s): F20.9 - Schizophrenia, unspecified (6) Subclinical hypothyroidism Code(s): E03.9 - HYPOTHYROIDISM, UNSPECIFIED Status: Chronic - 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 Review of Systems - Review of Systems ENT: negative: Ear Pain, Ear Discharge, Nose Pain, Nose Discharge, Nose Congestion, Mouth Pain, Mouth Swelling, Throat Pain, Throat Swelling, Other Respiratory: negative: Cough, Dry, Shortness of Breath, Hemoptysis, SOB with Excertion, Pleuritic Pain, Sputum, Wheezing Cardiovascular: negative: chest pain, palpitations, orthopnea, paroxysmal nocturnal dyspnea, edema, light headedness, other Gastrointestinal: negative: Nausea, Vomiting, Abdominal Pain, Diarrhea, Constipation, Melena, Hematochezia, Other Genitourinary: negative: Dysuria, Frequency, Incontinence, Hematuria, Retention , Other Musculoskeletal: negative: Neck Pain, Shoulder Pain, Arm Pain, Back Pain, Hand Pain, Leg Pain, Foot Pain, Other Skin: negative: Rash, Lesions, Cameron, Bruising, Other - Medications/Allergies Allergies/Adverse Reactions: Allergies Allergy/AdvReac Type Severity Reaction Status Date / Time topiramate [From Topamax] Allergy Intermediate Rash Verified 02/02/18 03:28 Medications: Current Medications Acetaminophen (Tylenol) 650 mg PO Q4H PRN PRN Reason: Headache/Fever or Pain Calcium Carbonate (Tums) 1,000 mg PO Q4H PRN PRN Reason: Heartburn or Indigestion Enoxaparin Sodium (Lovenox) 40 mg SC [facility]00 [facility] Last Admin: 02/06/18 10:16 Dose: 40 mg Labetalol HCl (Normodyne) 10 mg SLOW IVP Q4H PRN PRN Reason: Systolic BP > 180 Nitroglycerin (Nitrostat) 0.4 mg PO Q5MIN PRN PRN Reason: Chest Pain Senna (Senokot) 2 tab PO HSPRN PRN PRN Reason: Constipation Last Admin: 02/04/18 04:44 Dose: 2 tab Sodium Chloride (Flush - Normal Saline) 10 ml IVF Q12HR [facility] Last Admin: 02/06/18 10:17 Dose: 10 ml Sodium Chloride (Flush - Normal Saline) 10 ml IVF PRN PRN PRN Reason: Saline Flush Last Admin: 02/02/18 02:48 Dose: 10 ml
--- NOTE | 2018-02-07 08:54 | PDOC.PN ---
- Subjective Encounter Start Date: 02/07/18 Encounter Start Time: 08:00 Patient seen and examined. No new complaints. No overnight events - Objective Resuscitation Status: Resuscitation Status FULL:Full Resuscitation MAR Reviewed: Yes Vital Signs & Weight: Weight Weight 293 lb 2 oz I&O: 02/06/18 02/07/18 02/08/18 06:59 06:59 06:59 Intake Total 1410 Balance 1410 Result Diagrams: 02/03/18 04:05 02/03/18 04:05 Phys Exam - Physical Examination Constitutional: NAD HEENT: PERRLA, moist MMs, sclera anicteric Neck: no JVD, supple Respiratory: no wheezing, no rales, no rhonchi Cardiovascular: RRR, no significant murmur, no rub Gastrointestinal: soft, non-tender, no distention, positive bowel sounds Musculoskeletal: no edema, pulses present Neurological: non-focal, normal sensation, moves all 4 limbs Psychiatric: normal affect, A&O x 3 Skin: no rash, normal turgor Dx/Plan (1) Suicide attempt by drug ingestion Code(s): T50.902A - POISONING BY UNSP DRUG/MEDS/BIOL SUBST, SELF-HARM, INIT Status: Acute Qualifiers: (2) Bipolar disorder Code(s): F31.9 - BIPOLAR DISORDER, UNSPECIFIED Status: Chronic Qualifiers: Active/Remission status: remission status unspecified (3) Depression Code(s): F32.9 - MAJOR DEPRESSIVE DISORDER, SINGLE EPISODE, UNSPECIFIED Status : Chronic Qualifiers: Depression Type: unspecified (4) Obesity Code(s): E66.9 - OBESITY, UNSPECIFIED Status: Chronic (5) Schizophrenia Code(s): F20.9 - SCHIZOPHRENIA, UNSPECIFIED Status: Chronic Qualifiers: Schizophrenia type: unspecified Qualified Code(s): F20.9 - Schizophrenia, unspecified (6) Subclinical hypothyroidism Code(s): E03.9 - HYPOTHYROIDISM, UNSPECIFIED Status: Chronic - Plan cont current plan of care * medication reviewed as below * symptomatic treatment * await inpt psych facility to approve. * medically stable Review of Systems - Review of Systems ENT: negative: Ear Pain, Ear Discharge, Nose Pain, Nose Discharge, Nose Congestion, Mouth Pain, Mouth Swelling, Throat Pain, Throat Swelling, Other Respiratory: negative: Cough, Dry, Shortness of Breath, Hemoptysis, SOB with Excertion, Pleuritic Pain, Sputum, Wheezing Cardiovascular: negative: chest pain, palpitations, orthopnea, paroxysmal nocturnal dyspnea, edema, light headedness, other Gastrointestinal: negative: Nausea, Vomiting, Abdominal Pain, Diarrhea, Constipation, Melena, Hematochezia, Other Genitourinary: negative: Dysuria, Frequency, Incontinence, Hematuria, Retention , Other Musculoskeletal: negative: Neck Pain, Shoulder Pain, Arm Pain, Back Pain, Hand Pain, Leg Pain, Foot Pain, Other Skin: negative: Rash, Lesions, Cameron, Bruising, Other - Medications/Allergies Allergies/Adverse Reactions: Allergies Allergy/AdvReac Type Severity Reaction Status Date / Time topiramate [From Topamax] Allergy Intermediate Rash Verified 02/02/18 03:28 Medications: Current Medications Acetaminophen (Tylenol) 650 mg PO Q4H PRN PRN Reason: Headache/Fever or Pain Calcium Carbonate (Tums) 1,000 mg PO Q4H PRN PRN Reason: Heartburn or Indigestion Enoxaparin Sodium (Lovenox) 40 mg SC 0900 [facility] Last Admin: 02/06/18 10:16 Dose: 40 mg Labetalol HCl (Normodyne) 10 mg SLOW IVP Q4H PRN PRN Reason: Systolic BP > 180 Nitroglycerin (Nitrostat) 0.4 mg PO Q5MIN PRN PRN Reason: Chest Pain Senna (Senokot) 2 tab PO HSPRN PRN PRN Reason: Constipation Last Admin: 02/04/18 04:44 Dose: 2 tab
[2018-02-07] MEDS: Enoxaparin Sodium 40 MG/0.4 ML SYRINGE SC SCH (08:58)
[2018-02-08] MEDS: Enoxaparin Sodium 40 MG/0.4 ML SYRINGE SC SCH (07:33)
--- NOTE | 2018-02-08 10:59 | PDOC.PN ---
- Subjective Encounter Start Date: 02/08/18 Encounter Start Time: 09:40 Patient seen and examined. No new complaints. No overnight events - Objective Resuscitation Status: Resuscitation Status FULL:Full Resuscitation MAR Reviewed: Yes Vital Signs & Weight: Vital Signs (12 hours) Temp Pulse Resp BP Pulse Ox 02/08/18 08:00 98.0 F 104 H 18 02/08/18 07:45 98.0 F 104 H 18 123/60 95 Weight Weight 293 lb 2 oz Result Diagrams: 02/03/18 04:05 02/03/18 04:05 Phys Exam - Physical Examination Constitutional: NAD HEENT: PERRLA, moist MMs, sclera anicteric Neck: no JVD, supple Respiratory: no wheezing, no rales, no rhonchi Cardiovascular: RRR, no significant murmur, no rub Gastrointestinal: soft, non-tender, no distention, positive bowel sounds Musculoskeletal: no edema, pulses present Neurological: non-focal, normal sensation, moves all 4 limbs Psychiatric: normal affect, A&O x 3 Skin: no rash, normal turgor Dx/Plan (1) Suicide attempt by drug ingestion Code(s): T50.902A - POISONING BY UNSP DRUG/MEDS/BIOL SUBST, SELF-HARM, INIT Status: Acute Qualifiers: (2) Bipolar disorder Code(s): F31.9 - BIPOLAR DISORDER, UNSPECIFIED Status: Chronic Qualifiers: Active/Remission status: remission status unspecified (3) Depression Code(s): F32.9 - MAJOR DEPRESSIVE DISORDER, SINGLE EPISODE, UNSPECIFIED Status : Chronic Qualifiers: Depression Type: unspecified (4) Obesity Code(s): E66.9 - OBESITY, UNSPECIFIED Status: Chronic (5) Schizophrenia Code(s): F20.9 - SCHIZOPHRENIA, UNSPECIFIED Status: Chronic Qualifiers: Schizophrenia type: unspecified Qualified Code(s): F20.9 - Schizophrenia, unspecified (6) Subclinical hypothyroidism Code(s): E03.9 - HYPOTHYROIDISM, UNSPECIFIED Status: Chronic - 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 Review of Systems - Review of Systems ENT: negative: Ear Pain, Ear Discharge, Nose Pain, Nose Discharge, Nose Congestion, Mouth Pain, Mouth Swelling, Throat Pain, Throat Swelling, Other Respiratory: negative: Cough, Dry, Shortness of Breath, Hemoptysis, SOB with Excertion, Pleuritic Pain, Sputum, Wheezing Cardiovascular: negative: chest pain, palpitations, orthopnea, paroxysmal nocturnal dyspnea, edema, light headedness, other Gastrointestinal: negative: Nausea, Vomiting, Abdominal Pain, Diarrhea, Constipation, Melena, Hematochezia, Other Genitourinary: negative: Dysuria, Frequency, Incontinence, Hematuria, Retention , Other Musculoskeletal: negative: Neck Pain, Shoulder Pain, Arm Pain, Back Pain, Hand Pain, Leg Pain, Foot Pain, Other Skin: negative: Rash, Lesions, Cameron, Bruising, Other - Medications/Allergies Allergies/Adverse Reactions: Allergies Allergy/AdvReac Type Severity Reaction Status Date / Time topiramate [From Topamax] Allergy Intermediate Rash Verified 02/02/18 03:28 Medications: Current Medications Acetaminophen (Tylenol) 650 mg PO Q4H PRN PRN Reason: Headache/Fever or Pain Benztropine Mesylate (Cogentin) 1 mg PO HS [facility] Bupropion HCl (Wellbutrin Xl) 300 mg PO DAILY [facility] Calcium Carbonate (Tums) 1,000 mg PO Q4H PRN PRN Reason: Heartburn or Indigestion Enoxaparin Sodium (Lovenox) 40 mg SC 0900 [facility] Last Admin: 02/08/18 07:33 Dose: 40 mg Hydroxyzine Pamoate (Vistaril) 25 mg PO TID [facility] Labetalol HCl (Normodyne) 10 mg SLOW IVP Q4H PRN PRN Reason: Systolic BP > 180 Levothyroxine Sodium (Synthroid) 25 mcg PO 0600 [facility] Nitroglycerin (Nitrostat) 0.4 mg PO Q5MIN PRN PRN Reason: Chest Pain Senna (Senokot) 2 tab PO HSPRN PRN PRN Reason: Constipation Last Admin: 02/04/18 04:44 Dose: 2 tab Ziprasidone (Geodon) 40 mg PO HS [facility]
[2018-02-08] MEDS: hydrOXYzine Pamoate 25 mg Capsule PO SCH ×2 (14:28→21:20)
[2018-02-08] MEDS: Benztropine 1 MG TAB PO SCH (21:20)
[2018-02-08] MEDS: Ziprasidone 20 MG CAP PO SCH (21:20)
[2018-02-09] MEDS: hydrOXYzine Pamoate 25 mg Capsule PO SCH ×3 (08:32→22:12)
[2018-02-09] MEDS: Levothyroxine Sodium 25 MCG TAB PO SCH (08:32)
[2018-02-09] MEDS: Enoxaparin Sodium 40 MG/0.4 ML SYRINGE SC SCH (08:32)
[2018-02-09] MEDS: Bupropion 150 MG XL TAB PO SCH (08:32)
--- NOTE | 2018-02-09 09:22 | PDOC.PN ---
- Subjective Encounter Start Date: 02/09/18 Encounter Start Time: 09:20 -: old records requested/rev Pt seen and examined, chart reviewed in its entirety, this is my first visit with this patient. Pt admitted days ago for attempted suicide by Wellbutrin O/D. Pt awaiting bed at [facility]. No f/C, no N/V/d/C, no CP or sOB, no acute overnight events 10 point ROs performed and neg for all systems except as per HPI - Objective Resuscitation Status: Resuscitation Status FULL:Full Resuscitation MAR Reviewed: Yes Vital Signs & Weight: Vital Signs (12 hours) Temp Pulse Resp BP Pulse Ox 02/09/18 08:00 97.6 F 88 16 126/57 L 97 Weight Weight 293 lb 2 oz Result Diagrams: 02/03/18 04:05 02/03/18 04:05 Radiology Reviewed by me: Yes EKG Reviewed by me: Yes Phys Exam - Physical Examination Constitutional: NAD HEENT: PERRLA, moist MMs, sclera anicteric, oral pharynx no lesions Neck: no nodes, no JVD, supple, full ROM Respiratory: no wheezing, no rales, no rhonchi, clear to auscultation bilateral Cardiovascular: RRR, no significant murmur, no rub slightly tachy, but regular. HR decreased to normal while auscultating Gastrointestinal: soft, non-tender, no distention, positive bowel sounds Musculoskeletal: no edema, pulses present Neurological: non-focal, normal sensation, moves all 4 limbs Lymphatic: no nodes Psychiatric: A&O x 3 Deviation from normal: flat affect Skin: no rash, normal turgor, cap refill <2 seconds Dx/Plan (1) Suicide attempt by drug ingestion Code(s): T50.902A - POISONING BY UNSP DRUG/MEDS/BIOL SUBST, SELF-HARM, INIT Status: Acute Qualifiers: Encounter type: subsequent encounter Comment: awaiting bed at [facility]. CCM, transfer when available (2) Bipolar disorder Code(s): F31.9 - BIPOLAR DISORDER, UNSPECIFIED Status: Chronic Qualifiers: Active/Remission status: remission status unspecified (3) Depression Code(s): F32.9 - MAJOR DEPRESSIVE DISORDER, SINGLE EPISODE, UNSPECIFIED Status : Chronic Qualifiers: Depression Type: unspecified (4) Obesity Code(s): E66.9 - OBESITY, UNSPECIFIED Status: Chronic Qualifiers: Obesity classification: adult class 3 (BMI >= 40) (5) Schizophrenia Code(s): F20.9 - SCHIZOPHRENIA, UNSPECIFIED Status: Chronic Qualifiers: Schizophrenia type: unspecified Qualified Code(s): F20.9 - Schizophrenia, unspecified (6) Subclinical hypothyroidism Code(s): E03.9 - HYPOTHYROIDISM, UNSPECIFIED Status: Chronic - Plan cont current plan of care, out of bed/ambulate * .
[2018-02-09 12:16] VITALS: BMI 45.8
[2018-02-09] MEDS: Benztropine 1 MG TAB PO SCH (22:12)
[2018-02-09] MEDS: Ziprasidone 20 MG CAP PO SCH (22:12)
[2018-02-10] MEDS: Levothyroxine Sodium 25 MCG TAB PO SCH (06:09)
[2018-02-10 07:31] VITALS: BP 128/62; TEMP 97.5
[2018-02-10] MEDS: Bupropion 150 MG XL TAB PO SCH (08:18)
[2018-02-10] MEDS: Enoxaparin Sodium 40 MG/0.4 ML SYRINGE SC SCH (08:19)
[2018-02-10] MEDS: hydrOXYzine Pamoate 25 mg Capsule PO SCH (08:19)
--- NOTE | 2018-02-10 15:19 | DIS ---
DATE OF ADMISSION: 02/01/2018 DATE OF DISCHARGE: 02/10/2018 DISCHARGE DIAGNOSES: 1. Altered mental status. 2. Intentional overdose with bupropion. 3. Anxiety. 4. Depression. 5. Bipolar disorder. 6. Schizophrenia/schizoaffective disorder. 7. Subclinical hypothyroidism. CONSULTATIONS: 1. [facility]. 2. Pulmonary Critical Care on 02/02/2018. HISTORY AND PHYSICAL: Mr. Aguilar is a 22-year-old male with history of the above and past suicide attempts, who presented to the Emergency Department with altered mental status after overdose of bupr opion. The patient was found to have significant tachycardia and received a total of 30 mg of adenosine by Marty DOSS. He was protecting his airways, but was not able to give any further information. In the ER, temperature was normal, respirations 25, pulse rate of 144 and blood pressure 132. We sub sequently called for admit. The patient was seen and examined by Dr. Guan. Labs were fairly normal and the patient was found to have overdosed on Wellbutrin, gabapentin, and doxycycline. He was placed in the ICU in the [facility] Care Unit, sitter was arranged and plan for [facility] consult once medically stable. Overnight 02/02 to 02/03/2018, the patient had no acute overnight events. He is back to baseline. [facility] was ca lled for psychiatric evaluation. The patient was seen by [facility] and recommended inpatient psych facili ty and placed him under protective order. From 02/05/2018 to 02/06/2018, the patient waited for a bed. On 02/06/2018, the patient was planned to be discharged to the psych facility. The patient was otherwise medically stable for discharge. T he bed was not available, so discharge was held. From 02/07/2018 to 02/10/2018, the patient was kept inpatient waiting for a bed at [facility]. Ultimately, the patient was awake and alert, a safety plan was entered with [facility] and they other dodson cleared him to go home with outpatient followup with [facility]. PHYSICAL EXAMINATION: The patient was examined on the day of discharge. Discharge plan and disposit ion were discussed with the patient face to face at the bedside. DISCHARGE MEDICATIONS: 1. Resume home medications. 2. Cogentin 1 mg p.o. at bedtime. 3. Wellbutrin-XL 300 mg daily. 4. Hydroxyzine 25 mg p.o. t.i.d. 5. Levothyroxine 25 mcg daily. 6. Geodon 40 mg p.o. at bedtime. DISCHARGE CONDITION: Stable. DISPOSITION: To be discharged home via private vehicle. DISCHARGE DIET: Regular. DISCHARGE ACTIVITY: As tolerated. FOLLOWUP APPOINTMENTS: 1. Primary care physician listed [facility] within a week. 2. [facility] for further safety agreement.
== END 2018-02-10 14:46 | disposition short-term general hospital (02) | DRG 918 ==
LOC: ERS 21:09 → IMCU/EMU 22:35 → T4-B 02-02 18:43
PROVIDERS: ADMIT Internal Medicine; ATTEND Internal Medicine
DX: T43.292A Poisoning by other antidepressants, intentional self-harm, initial encounter (principal); E66.01 Morbid (severe) obesity due to excess calories; Z68.42 Body mass index [BMI] 45.0-49.9, adult; T42.6X2A Poisoning by other antiepileptic and sedative-hypnotic drugs, intentional self-harm, initial encounter; T36.4X2A Poisoning by tetracyclines, intentional self-harm, initial encounter; R41.82 Altered mental status, unspecified; F32.9 Major depressive disorder, single episode, unspecified; F31.9 Bipolar disorder, unspecified; F41.9 Anxiety disorder, unspecified; F20.9 Schizophrenia, unspecified; E03.9 Hypothyroidism, unspecified; E86.0 Dehydration
CPT/HCPCS: 36415; 51701; 80048; 80053; 80306; 80307; 81003; 81015; 82550; 82553; 83735; 84100; 84443; 84484; 85007; 85025; 85027; 93005; 94760; 96360; 96361; A4216; J1650; J7070; Q0177

== ENCOUNTER 2018-03-01 22:57 | Emergency (ER) | payer MEDICAID, OTHER ==
[2018-03-01 23:38] LABS: Bilirubin Negative (Negative); Blood, Urine Negative (Negative); Clarity CLEAR (Clear); Glucose, Urine (Dipstick) Negative (Negative); Leukocyte Negative (Negative); Nitrite Negative (Negative); Protein, Urine (Dipstick) Negative (Neg-Trace); Specific Gravity, Urine 1.026 (1.002-1.036); Urobilinogen 0.2 mg/dL (0.2-1.0)
[2018-03-01 23:44] LABS: #Basophils 0.1 thou/uL (0.0-0.2); #Eosinphils 0.1 thou/uL (0.0-0.7); #Lymphocytes 1.8 thou/uL (1.20-3.40); #Monocytes 0.5 thou/uL (0.11-0.59); #Neutrophils 6.4 thou/uL (1.40-6.50); %Basophils 0.7 % (0.0-1.0); %Eosinophils 0.8 % (0.0-10.0); %Lymphocytes 20.4 % (21.0-51.0); %Monocytes 5.6 % (0.0-10.0); %Neutrophils 72.5 % (42.0-75.0); Hemoglobin 15.7 g/dL (14.0-18.0); Mean Corpuscular HGB CONC 32.8 g/dL (32.0-36.0); Mean Corpuscular Hemoglobin 27.8 pg (27.0-31.0); Mean Corpuscular Volume 84.9 fl (80.0-94.0); Mean Platelet Volume 7.7 fL (7.4-10.4); Platelet Count 246 thou/uL (130-400); RBC Distribution Width 12.1 % (11.5-14.5); Red Blood Cell (RBC) Count 5.65 mill/uL (4.70-6.10); White Blood Cell (WBC) Count 8.8 thou/uL (4.8-10.8)
[2018-03-01 23:45] LABS: Amphetamine Not Detected (NotDetected); Barbiturates Screen Not Detected (NotDetected); Benzodiazepine Screen Not Detected (NotDetected); Cocaine Metabolite Screen Not Detected (NotDetected); Medtox Control Line Valid? VALID (VALID); Medtox Reader # READER 1; Methadone Not Detected (NotDetected); Methamphetamine Not Detected (NotDetected); Opiate Screen Not Detected (NotDetected); Oxycodone Screen Not Detected (NotDetected); Phencyclidine (PCP) Not Detected (NotDetected); THC/Cannabinoid Screen Not Detected (NotDetected); Tricyclic Screen Detected (NotDetected)
[2018-03-01 23:57] LABS: Acetaminophen Less than 6.0 mcg/mL (10.0-30.0); Alcohol Less than 10 mg/dL (Less than 10); CK (CPK) 123 U/L (30-200); Salicylate Less than 8.0 mg/dL (15.0-30.0)
[2018-03-01 23:59] LABS: ALT (SGPT) 42 U/L (8-55); AST (SGOT) 35 U/L (5-34); Albumin 4.7 g/dL (3.5-5.0); Alkaline Phosphatase 49 U/L (40-150); Anion Gap 13 mmol/L (10-20); BUN (Urea Nitrogen) 14 mg/dL (8.9-20.6); Bilirubin, Total 0.6 mg/dL (0.2-1.2); Calc. Creatinine Clearance 0 mL/min (70-130); Calcium 9.8 mg/dL (7.8-10.44); Carbon Dioxide 27 mmol/L (22-29); Chloride 106 mmol/L (98-107); Estimated GFR-MDRD Greater than 90; Globulin 2.8 g/dL (2.4-3.5); Glucose 91 mg/dL (70-105); Potassium 4.4 mmol/L (3.5-5.1); Protein, Total 7.5 g/dL (6.0-8.3); Sodium 142 mmol/L (136-145)
--- NOTE | 2018-03-04 16:00 | EKG ---
Test Reason : Blood Pressure : / mmHG Vent. Rate : 074 BPM Atrial Rate : 074 BPM P-R Int : 122 ms QRS Dur : 084 ms QT Int : 360 ms P-R-T Axes : 009 -04 003 degrees QTc Int : 399 ms Normal sinus rhythm Moderate voltage criteria for LVH, may be normal variant Borderline ECG Confirmed by GODWIN SPENCER ([id number]), editor news NIKA MANZANO ([id number]) on 03/04/2018 4:00:21 PM Referred By: Confirmed By:GODWIN SPENCER
--- NOTE | 2018-03-04 16:00 | EKG ---
Test Reason : Blood Pressure : / mmHG Vent. Rate : 058 BPM Atrial Rate : 058 BPM P-R Int : 132 ms QRS Dur : 102 ms QT Int : 416 ms P-R-T Axes : -01 -01 005 degrees QTc Int : 408 ms Sinus bradycardia Minimal voltage criteria for LVH, may be normal variant Early repolarization Borderline ECG Confirmed by GODWIN SPENCER ([id number]), dictionary editor NIKA MANZANO ([id number]) on 03/04/2018 4:00:34 PM Referred By: Confirmed By:GODWIN SPENCER
== END 2018-03-02 08:42 ==
LOC: ERS 22:57
DX: R45.851 Suicidal ideations (principal); E03.9 Hypothyroidism, unspecified; F31.9 Bipolar disorder, unspecified; F20.9 Schizophrenia, unspecified; Z79.899 Other long term (current) drug therapy
CPT/HCPCS: 36415; 80053; 80306; 80307; 81003; 82550; 84443; 85025; 93005; 96360

== ENCOUNTER 2018-09-20 11:11 | Outpatient (CLI) | payer OTHER | END 2018-09-20 11:12 | disposition home or self-care (01) | LOC: DTY/OP 11:11 | PROVIDERS: ATTEND Specialist | DX: Z01.818 Encounter for other preprocedural examination (principal); E66.01 Morbid (severe) obesity due to excess calories | CPT/HCPCS: 97802 ==

== ENCOUNTER 2019-02-17 00:02 | Emergency (ER) | payer OTHER ==
[2019-02-17 01:06] LABS: #Basophils 0.1 thou/uL (0.0-0.2); #Eosinphils 0.2 thou/uL (0.0-0.7); #Lymphocytes 2.5 thou/uL (1.20-3.40); #Monocytes 0.9 thou/uL (0.11-0.59); #Neutrophils 8.2 thou/uL (1.40-6.50); %Basophils 0.4 % (0.0-1.0); %Eosinophils 1.3 % (0.0-10.0); %Lymphocytes 21.1 % (21.0-51.0); %Neutrophils 69.2 % (42.0-75.0); Mean Corpuscular HGB CONC 33.9 g/dL (32.0-36.0); Mean Corpuscular Hemoglobin 29.4 pg (27.0-31.0); Mean Corpuscular Volume 86.6 fL (78.0-98.0); Mean Platelet Volume 7.7 fL (7.4-10.4); Platelet Count 250 thou/uL (130-400); RBC Distribution Width 10.9 % (11.5-14.5); Red Blood Cell (RBC) Count 4.77 mill/uL (4.20-5.40); White Blood Cell (WBC) Count 11.8 thou/uL (4.8-10.8)
[2019-02-17 01:30] LABS: ALT (SGPT) 18 U/L (8-55); AST (SGOT) 19 U/L (5-34); Acetaminophen Less than 6.0 mcg/mL (10.0-30.0); Albumin 4.8 g/dL (3.5-5.0); Alcohol Less than 10 mg/dL (Less than 10); Alkaline Phosphatase 35 U/L (40-150); Anion Gap 14 mmol/L (10-20); BUN (Urea Nitrogen) 14 mg/dL (7.0-18.7); Bilirubin, Total 0.4 mg/dL (0.2-1.2); Calc. Creatinine Clearance 0 mL/min (70-130); Calcium 10.2 mg/dL (7.8-10.44); Carbon Dioxide 26 mmol/L (22-29); Chloride 104 mmol/L (98-107); Estimated GFR-MDRD 70; Globulin 2.9 g/dL (2.4-3.5); Glucose 94 mg/dL (70-105); Potassium 4.1 mmol/L (3.5-5.1); Protein, Total 7.7 g/dL (6.0-8.3); Salicylate Less than 8.0 mg/dL (15.0-30.0); Sodium 140 mmol/L (136-145)
[2019-02-17 02:26] LABS: Bilirubin Negative (Negative); Blood, Urine Negative (Negative); Clarity Clear (Clear); Glucose, Urine (Dipstick) Negative (Negative); Leukocyte Negative (Negative); Nitrite Negative (Negative); Protein, Urine (Dipstick) Trace mg/dL (Neg-Trace); Specific Gravity, Urine 1.029 (1.002-1.036); Urobilinogen 0.2 mg/dL (0.2-1.0)
[2019-02-17 02:38] LABS: Medtox Reader # READER 1
[2019-02-17 02:39] LABS: Amphetamine Detected (NotDetected); Barbiturates Screen Not Detected (NotDetected); Benzodiazepine Screen Not Detected (NotDetected); Cocaine Metabolite Screen Not Detected (NotDetected); Medtox Control Line Valid? VALID (VALID); Methadone Not Detected (NotDetected); Methamphetamine Not Detected (NotDetected); Opiate Screen Not Detected (NotDetected); Oxycodone Screen Not Detected (NotDetected); Phencyclidine (PCP) Not Detected (NotDetected); THC/Cannabinoid Screen Not Detected (NotDetected); Tricyclic Screen Detected (NotDetected)
[2019-02-17] MEDS ORDERED: Ziprasidone 20 MG CAP ONE (11:34)
== END 2019-02-17 16:15 ==
LOC: ERS 00:02
DX: R45.851 Suicidal ideations (principal); E03.9 Hypothyroidism, unspecified; F31.9 Bipolar disorder, unspecified; F41.9 Anxiety disorder, unspecified; F98.8 Other specified behavioral and emotional disorders with onset usually occurring in childhood and adolescence; Z79.899 Other long term (current) drug therapy
CPT/HCPCS: 36415; 80053; 80306; 80307; 81003; 84443; 85025; 99285

== ENCOUNTER 2019-03-01 12:50 | Outpatient (CLI) | payer OTHER ==
--- NOTE | 2019-03-01 14:05 | RAD ---
2 VIEW CHEST: Date: 03/01/19 No prior comparison. INDICATION: Dyspnea. FINDINGS: No evidence of consolidation, effusion, or discrete pneumothorax. Cardiac silhouette is normal in siz e. Osseous structures are intact. IMPRESSION: No focal consolidation. POS: [facility]
== END 2019-03-01 12:51 | disposition home or self-care (01) ==
LOC: RAD 12:50
PROVIDERS: ATTEND Internal Medicine Pulmonary Disease
DX: R06.00 Dyspnea, unspecified (principal)
CPT/HCPCS: 71046

== ENCOUNTER 2020-10-18 05:26 | Emergency (ER) | payer SELFPAY ==
[2020-10-18 06:32] LABS: Bilirubin Negative (Negative); Blood, Urine Negative (Negative); Clarity Clear (Clear); Glucose, Urine (Dipstick) Normal (Negative); Ketone, Urine Negative (Negative); Leukocyte Negative Leu/uL (Negative); Nitrite Negative (Negative); Protein, Urine (Dipstick) Negative (Neg-Trace); Specific Gravity, Urine 1.031 (1.002-1.036); Urobilinogen Normal mg/dL (Less than 2)
[2020-10-18] MEDS ORDERED: Lorazepam 2 MG/ML VIAL ONE ×2 (06:34→16:21)
[2020-10-18 07:07] LABS: #Basophils 0.1 thou/uL (0.0-0.2); #Eosinphils 0.4 thou/uL (0.0-0.7); #Lymphocytes 3.1 thou/uL (1.20-3.40); #Monocytes 1.2 thou/uL (0.11-0.59); #Neutrophils 10.4 thou/uL (1.40-6.50); %Basophils 0.6 % (0.0-1.0); %Eosinophils 2.6 % (0.0-10.0); %Lymphocytes 20.3 % (21.0-51.0); %Monocytes 7.8 % (0.0-10.0); %Neutrophils 68.7 % (42.0-75.0); Hemoglobin 12.5 g/dL (12.0-16.0); Mean Corpuscular HGB CONC 35.2 g/dL (32.0-36.0); Mean Corpuscular Hemoglobin 31.1 pg (27.0-31.0); Mean Corpuscular Volume 88.6 fL (78.0-98.0); Mean Platelet Volume 7.6 fL (7.4-10.4); Platelet Count 243 thou/uL (130-400); RBC Distribution Width 11.6 % (11.5-14.5); Red Blood Cell (RBC) Count 4.01 mill/uL (4.20-5.40); White Blood Cell (WBC) Count 15.2 thou/uL (4.8-10.8)
[2020-10-18] MEDS ORDERED: Ziprasidone 20 MG VIAL ONE ×2 (07:13→16:21)
[2020-10-18] MEDS ORDERED: Sterile Water 10 ML ONE (07:14)
[2020-10-18 07:27] LABS: ALT (SGPT) 13 U/L (8-55); AST (SGOT) 13 U/L (5-34); Acetaminophen Less than 6.0 mcg/mL (10.0-30.0); Albumin 4.3 g/dL (3.5-5.0); Alcohol Less than 10 mg/dL (Less than 10); Alkaline Phosphatase 31 U/L (40-110); Anion Gap 19 mmol/L (10-20); BUN (Urea Nitrogen) 13 mg/dL (7.0-18.7); Bilirubin, Total 0.3 mg/dL (0.2-1.2); Calc. Creatinine Clearance 0 mL/min (70-130); Calcium 9.3 mg/dL (7.8-10.44); Carbon Dioxide 22 mmol/L (22-29); Chloride 100 mmol/L (98-107); Globulin 2.9 g/dL (2.4-3.5); Glucose 108 mg/dL (70-105); Potassium 3.7 mmol/L (3.5-5.1); Protein, Total 7.2 g/dL (6.0-8.3); Salicylate Less than 8.0 mg/dL (15.0-30.0); Sodium 137 mmol/L (136-145)
[2020-10-18 13:05] LABS: Amphetamine Not Detected (NotDetected); Barbiturates Screen Not Detected (NotDetected); Benzodiazepine Screen Detected (NotDetected); Cocaine Metabolite Screen Not Detected (NotDetected); Medtox Control Line Valid? VALID (VALID); Medtox Reader # READER 1; Methadone Not Detected (NotDetected); Methamphetamine Not Detected (NotDetected); Opiate Screen Not Detected (NotDetected); Oxycodone Screen Not Detected (NotDetected); Phencyclidine (PCP) Not Detected (NotDetected); THC/Cannabinoid Screen Not Detected (NotDetected); Tricyclic Screen Detected (NotDetected)
[2020-10-18] MEDS ORDERED: hydrOXYzine Pamoate 25 mg Capsule ONE (13:51)
[2020-10-18] MEDS ORDERED: Aspirin 81 mg Enteric Coated Tablet ONE (13:51)
[2020-10-18] MEDS ORDERED: Hydrocortisone Sod Succ/PF 100 mg/2 ml Vial ONE (13:51)
[2020-10-18] MEDS ORDERED: Lorazepam 1 MG TAB ONE (15:13)
[2020-10-18 19:03] LABS: SARS-CoV-2 NAA Rapid Test Not Detected (NotDetected)
== END 2020-10-18 22:05 ==
LOC: ERS 05:26
DX: F29 Unspecified psychosis not due to a substance or known physiological condition (principal); F31.9 Bipolar disorder, unspecified; R45.851 Suicidal ideations; E03.9 Hypothyroidism, unspecified; F20.9 Schizophrenia, unspecified; Z79.899 Other long term (current) drug therapy
CPT/HCPCS: 36415; 80053; 80306; 80307; 81003; 84443; 85025; 96372; 99285; J1720; J2060; J3486; Q0177; U0002

== ENCOUNTER 2024-02-22 19:51 | Emergency (ER) | payer MEDICARE | END 2024-02-23 02:30 | disposition home or self-care (01) | LOC: ERS 19:51 | DX: R10.30 Lower abdominal pain, unspecified (principal); Z55.6 Problems related to health literacy | CPT/HCPCS: 99283 ==